=== PATIENT | female | born 1980 | race African-American/Black ===

== ENCOUNTER 2016-09-04 08:56 | Emergency (ER) | payer OTHER ==
[2016-09-04] MEDS ORDERED: ACETAMINOPHEN WITH CODEINE #3 TABLET PO ONE (11:08)
--- NOTE | 2016-09-04 11:32 | ER Document Report ---
ED General - General Chief Complaint: Cold Symptoms Stated Complaint: CHEST PAIN Mode of Arrival: Ambulatory Information source: Patient Notes: 36 yr old female presents with 3 day duration of facial pain, pressure and nasal discharge with a productive yellow cough. denies any fevers admits to nausea TRAVEL OUTSIDE OF THE [place] IN LAST 30 DAYS: No - HPI Onset: Last week Onset/Duration: Persistent Quality of pain: Achy, Pressure Severity: Mild Pain Level: 1 Associated symptoms: Productive cough, Sinus pain/drainage Exacerbated by: Denies Relieved by: Denies Similar symptoms previously: Yes Recently seen / treated by doctor: Yes - Related Data Allergies/Adverse Reactions: No Known Allergies Allergy (Verified 09/04/16 09:16) Past Medical History - General Information source: Patient Last Menstrual Period: currently - Social History Smoking Status: Unknown if Ever Smoked Cigarette use (# per day): No Chew tobacco use (# tins/day): Yes Smoking Education Provided: No Frequency of alcohol use: None Drug Abuse: None Family History: Reviewed & Not Pertinent, DM, Hypertension, Malignancy Patient has suicidal ideation: No Patient has homicidal ideation: No - Past Medical History Cardiac Medical History: Reports: Hx Hypertension - Not on-any medications Neurological Medical History: Reports: Hx Migraine Renal/ Medical History: Reports: Hx Ovarian Cysts GI Medical History: Reports: Hx Colonoscopy Musculoskeltal Medical History: Reports Hx Musculoskeletal Deformity, Reports Hx Musculoskeletal Trauma Psychiatric Medical History: Reports: Hx Anxiety, Hx Depression - anxiety Past Surgical History: Reports: Hx Gynecologic Surgery - laparoscopy sent cells to lab, Hx Tubal Ligation - Immunizations Immunizations up to date: Yes Hx Diphtheria, Pertussis, Tetanus Vaccination: No Review of Systems - Review of Systems Notes: REVIEW OF SYSTEMS: CONSTITUTIONAL : Denies fever, chills, or sweats. Denies recent illness. EENT: Admits nasal discharge CARDIOVASCULAR: Denies chest pain. Denies palpitations or racing or irregular heart beat. Denies ankle edema. RESPIRATORY: Admits to productive cough GASTROINTESTINAL: Denies abdominal pain or distention. Denies nausea, vomiting , or diarrhea. Denies blood in vomitus, stools, or per rectum. Denies black, tarry stools. Denies constipation. GENITOURINARY: Denies difficulty urinating, painful urination, burning, frequency, blood in urine, or discharge. FEMALE GENITOURINARY: Denies vaginal bleeding, heavy or abnormal periods, irregular periods. Denies vaginal discharge or odor. MUSCULOSKELETAL: Denies back or neck pain or stiffness. Denies joint pain or swelling. SKIN: Denies rash, lesions or sores. HEMATOLOGIC : Denies easy bruising or bleeding. LYMPHATIC: Denies swollen, enlarged glands. NEUROLOGICAL: Denies confusion or altered mental status. Denies passing out or loss of consciousness. Denies dizziness or lightheadedness. Denies headache. Denies weakness or paralysis or loss of use of either side. Denies problems with gait or speech. Denies sensory loss, numbness, or tingling. Denies seizures. PSYCHIATRIC: Denies anxiety or stress. Denies depression, suicidal ideation, or homicidal ideation. ALL OTHER SYSTEMS REVIEWED AND NEGATIVE. Dictation was performed using [employer] voice recognition software PHYSICAL EXAMINATION: GENERAL: Well-appearing, well-nourished and in no acute distress. HEAD: Atraumatic, normocephalic. Tender on palpation EYES: Pupils equal round and reactive to light, extraocular movements intact, conjunctiva are normal. ENT: Nares patent, oropharynx clear without exudates. Moist mucous membranes. NECK: Normal range of motion, supple without lymphadenopathy LUNGS: Breath sounds clear to auscultation bilaterally and equal. No wheezes rales or rhonchi. HEART: Regular rate and rhythm without murmurs ABDOMEN: Soft, nontender, nondistended abdomen. No guarding, no rebound. No masses appreciated. Female : deferred Musculoskeletal: Normal range of motion, no pitting or edema. No cyanosis. NEUROLOGICAL: Cranial nerves grossly intact. Normal speech, normal gait. Normal sensory, motor exams PSYCH: Normal mood, normal affect. SKIN: Warm, Dry, normal turgor, no rashes or lesions noted. Physical Exam - Vital signs Vitals: Temp Pulse Resp BP Pulse Ox 98.0 F 75 16 144/93 H 98 09/04/16 09:18 09/04/16 09:18 09/04/16 09:18 09/04/16 09:18 09/04/16 09:18 Course - Re-evaluation Re-evalutation: 09/04/16 11:32 Patient appears to have sinusitis, she requests pain control 09/04/16 11:59 chest xray is normal Otherwise patient stable for discharge After performing a Medical Screening Examination, I estimate there is LOW risk for ACUTE CORONARY SYNDROME, RESPIRATORY FAILURE, SEPSIS OR MENINGITIS, thus I consider the discharge disposition reasonable. The patient and I have discussed the diagnosis and risks, and we agree with discharging home with close follow- up. We also discussed returning to the Emergency Department immediately if new or worsening symptoms occur. We have discussed the symptoms which are most concerning (e.g., changing or worsening pain, trouble swallowing or breathing, neck stiffness, fever) that necessitate immediate return. - Vital Signs Vital signs: Temp Pulse Resp BP Pulse Ox 98.0 F 75 16 144/93 H 98 09/04/16 09:18 09/04/16 09:18 09/04/16 09:18 09/04/16 09:18 09/04/16 09:18 - Diagnostic Test Radiology reviewed: Image reviewed, Reports reviewed Discharge - Discharge Clinical Impression: Sinusitis Qualifiers: Sinusitis location: frontal Chronicity: acute Recurrence: non-recurrent Qualified Code(s): J01.10 - Acute frontal sinusitis, unspecified Headache Qualifiers: Headache type: unspecified Headache chronicity pattern: unspecified pattern Intractability: not intractable Qualified Code(s): R51 - Headache Pneumonia Qualifiers: Pneumonia type: due to unspecified organism Laterality: unspecified laterality Lung location: unspecified part of lung Qualified Code(s): J18.9 - Pneumonia, unspecified organism Condition: Stable Disposition: HOME, SELF-CARE Instructions: Sinusitis ([facility]) Additional Instructions: Follow up with your physician tomorrow for further care or return to the ED IMMEDIATELY if symptoms worsen or new concerns occur Prescriptions: Acetaminophen with Codeine [Tylenol #3 Tablet] 1 each PO Q4HP PRN #14 tablet PRN Reason: Azithromycin 250 mg PO ASDIR PRN #6 tablet PRN Reason:
[2016-09-04 12:30] VITALS: BP 145/96
== END 2016-09-04 12:30 | disposition home or self-care (01) ==
LOC: ER 08:56
DX: J18.9 Pneumonia, unspecified organism (principal); J01.10 Acute frontal sinusitis, unspecified; R51 Headache; J34.89 Other specified disorders of nose and nasal sinuses; R05 Cough; R11.0 Nausea; I10 Essential (primary) hypertension; Z72.0 Tobacco use
CPT/HCPCS: 71020; 99283

== ENCOUNTER 2016-10-18 11:13 | Emergency (ER) | payer OTHER ==
--- NOTE | 2016-10-18 11:56 | ER Document Report ---
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 denies pyuria, hematuria, urgency. admits to oral intercourse, and vaginal intercourse with her I have greeted and performed a rapid initial assessment of this patient. A comprehensive ED assessment and evaluation of the patient, analysis of test results and completion of the medical decision making process will be conducted by additional ED providers. TRAVEL OUTSIDE OF THE [place] IN LAST 30 DAYS: No - Related Data Allergies/Adverse Reactions: No Known Allergies Allergy (Verified 10/18/16 11:53) Past Medical History - Past Medical History Cardiac Medical History: Reports: Hx Hypertension - Not on-any medications Neurological Medical History: Reports: Hx Migraine Renal/ Medical History: Reports: Hx Ovarian Cysts GI Medical History: Reports: Hx Colonoscopy Musculoskeltal Medical History: Reports Hx Musculoskeletal Deformity, Reports Hx Musculoskeletal Trauma Psychiatric Medical History: Reports: Hx Anxiety, Hx Depression - anxiety Past Surgical History: Reports: Hx Gynecologic Surgery - laparoscopy sent cells to lab, Hx Tubal Ligation - Immunizations Immunizations up to date: Yes Hx Diphtheria, Pertussis, Tetanus Vaccination: No Physical Exam - Vital signs Vitals: Temp Pulse Resp BP Pulse Ox 98.0 F 95 16 138/89 H 100 10/18/16 11:41 10/18/16 11:41 10/18/16 11:41 10/18/16 11:41 10/18/16 11:41 Course - Vital Signs Vital signs: Temp Pulse Resp BP Pulse Ox 98.0 F 95 16 138/89 H 100 10/18/16 11:41 10/18/16 11:41 10/18/16 11:41 10/18/16 11:41 10/18/16 11:41
[2016-10-18] MEDS ORDERED: ONDANSETRON 4 MG TAB.RAPDIS PO ONE (11:57)
[2016-10-18 12:20] LABS: APPEARANCE,URINE CLEAR; BILIRUBIN,URINE NEGATIVE (NEGATIVE); GLUCOSE, URINE NEGATIVE (NEGATIVE); KETONES,URINE NEGATIVE (NEGATIVE); LEUKOCYTE ESTERASE,URINE NEGATIVE (NEGATIVE); NITRITE,URINE NEGATIVE (NEGATIVE); PROTEIN,URINE NEGATIVE (NEGATIVE); URINE SPECIFIC GRAVITY 1.004; UROBILINOGEN,URINE NEGATIVE mg/dL (<2.0)
[2016-10-18 13:48] LABS: CHLAM PCR NOT DETECTED (NOT DETECT)
[2016-10-18] MEDS ORDERED: OXYCODONE-ACETAMINOPHEN 5-325 MG TABLET PO ONE (16:45)
[2016-10-18] MEDS ORDERED: CEFTRIAXONE INJ 250 MG VIAL IM ONE (18:19)
--- NOTE | 2016-10-18 18:42 | ER Document Report ---
ED GI/ - General Chief Complaint: Abdominal Pain Stated Complaint: POSSIBLE STD Mode of Arrival: Ambulatory Information source: Patient Notes: 36-year-old female presents to the emergency department complaining of genital/ vaginal burning discomfort, and pelvic cramping type pain. Reports is in monogamous relationship with her however states he recently returned from deployment and has had similar symptoms. Patient is requesting STI screening. Denies fever, vaginal bleeding or discharge. TRAVEL OUTSIDE OF THE [place] IN LAST 30 DAYS: No - HPI Onset: Yesterday Timing/Duration: Persistent Quality of pain: Burning Severity at maximum: Mild Severity in ED: Mild Pain Level: 2 Vaginal bleeding (Compared to normal period): None Similar symptoms previously: No Recently seen / treated by doctor: No - Related Data Allergies/Adverse Reactions: No Known Allergies Allergy (Verified 10/18/16 11:53) Past Medical History - General Information source: Patient - Social History Smoking Status: Former Smoker Chew tobacco use (# tins/day): No Frequency of alcohol use: None Drug Abuse: None Lives with: Family Family History: Reviewed & Not Pertinent, DM, Hypertension, Malignancy Patient has suicidal ideation: No Patient has homicidal ideation: No - Past Medical History Cardiac Medical History: Reports: Hx Hypertension - Not on-any medications Neurological Medical History: Reports: Hx Migraine Renal/ Medical History: Reports: Hx Ovarian Cysts. Denies: Hx Peritoneal Dialysis GI Medical History: Reports: Hx Colonoscopy Musculoskeltal Medical History: Reports Hx Musculoskeletal Deformity, Reports Hx Musculoskeletal Trauma Psychiatric Medical History: Reports: Hx Anxiety, Hx Depression - anxiety Past Surgical History: Reports: Hx Gynecologic Surgery - laparoscopy sent cells to lab, Hx Tubal Ligation - Immunizations Immunizations up to date: Yes Hx Diphtheria, Pertussis, Tetanus Vaccination: Yes Review of Systems - Review of Systems Constitutional: No symptoms reported EENT: No symptoms reported Cardiovascular: No symptoms reported Respiratory: No symptoms reported Gastrointestinal: No symptoms reported Genitourinary: No symptoms reported. denies: Dysuria, Hematuria Female Genitourinary: See HPI Musculoskeletal: No symptoms reported Skin: No symptoms reported Hematologic/Lymphatic: No symptoms reported Neurological/Psychological: No symptoms reported -: Yes All other systems reviewed and negative Physical Exam - Vital signs Vitals: Temp Pulse Resp BP Pulse Ox 98.0 F 95 16 138/89 H 100 10/18/16 11:41 10/18/16 11:41 02/16/17 11:41 10/18/16 11:41 10/18/16 11:41 Interpretation: Normal - General General appearance: Appears well, Alert In distress: None - HEENT Head: Normocephalic, Atraumatic Eyes: Normal Pupils: PERRL - Respiratory Respiratory status: No respiratory distress Chest status: Nontender Breath sounds: Normal Chest palpation: Normal - Cardiovascular Rhythm: Regular Heart sounds: Normal auscultation Murmur: No Pulses: Normal: Radial Normal capillary refill: Yes - Abdominal Inspection: Normal Distension: No distension Bowel sounds: Normal Tenderness: Nontender. No: Tender, McBurney's point, Diaz's sign, Guarding, Rebound, Other Organomegaly: No organomegaly - Genitourinary External exam: Normal. No: Lesions, Vesicles Speculum exam: Cervix closed, Vaginal discharge - Moderate amount whitish thin discharge Vaginal bleeding: None Bimanuel exam: Normal. No: Cervical motion tender, Adnexal tenderness Notes: Pelvic exam chaperoned by Eileen WILL - Back Back: Normal, Nontender. No: Tender, Deformity/step-off, CVA tenderness, Vertebra tenderness, Scars, Scoliosis, Wounds, Other - Extremities General upper extremity: Normal inspection, Nontender, Normal color, Normal ROM , Normal temperature General lower extremity: Normal inspection, Nontender, Normal color, Normal ROM , Normal temperature, Normal weight bearing. No: Jose's sign - Neurological Neuro grossly intact: Yes Cognition: Normal Orientation: AAOx4 Sudhir Coma Scale Eye Opening: Spontaneous [place] Coma Scale Verbal: Oriented [place] Coma Scale Motor: Obeys Commands Sudhir Coma Scale Total: 15 Speech: Normal Motor strength normal: LUE, RUE, LLE, RLE Sensory: Normal - Psychological Associated symptoms: Normal affect, Normal mood - Skin Skin Temperature: Warm Skin Moisture: Dry Skin Color: Normal Course - Re-evaluation Re-evalutation: 10/18/16 18:45 Patient hemodynamically stable, in no distress, afebrile, nontoxic. Positive trichomonas on wet mount. HCG negative. Negative chandelier signs or other suggestion of significant or emergent intrapelvic etiology at this time. Will treat for Trichomonas and mild PID including possible exposure to Chlamydia and/ or gonorrhea as well due to reported history and symptoms. Patient presentation and findings discussed with ED physician Dr. Pizano who concurs with evaluation and treatment plan and recommends no indication for pelvic ultrasound this time. Patient appears stable for discharge and agrees with home care, follow-up with PCP, and ED return precautions. - Vital Signs Vital signs: Temp Pulse Resp BP Pulse Ox 98.6 F 78 22 H 123/81 100 10/18/16 18:47 10/18/16 18:47 10/18/16 18:47 10/18/16 18:47 10/18/16 18:47 - Laboratory Laboratory results interpreted by me: 10/18/16 12:00 Urine Blood SMALL H Discharge - Discharge Clinical Impression: Trichomoniasis, Acute infection of female upper reproductive tract Condition: Stable Disposition: HOME, SELF-CARE Additional Instructions: PELVIC INFLAMMATORY DISEASE: You have been diagnosed as having pelvic inflammatory disease (PID). This is an infection of the fallopian tubes and surrounding areas of the pelvis. Symptoms are usually pelvic pain and discharge. The infection can do permanent damage to the tubes and ovaries. It should be taken very seriously. Treatment is antibiotics, which may be given by vein or by injection if the infection seems serious. It's important that you receive all recommended medication. Condoms help prevent spread of this infection to others. Because this infection is spread sexually, it's important that your sexual partner be checked before resuming sexual relations. If a culture shows gonorrhea or chlamydia organisms, the law requires that this be reported to the health department. Call the doctor or return at once if you develop increasing fever, rash, severe pelvic pain, vaginal bleeding (other than your period), or problems with your bladder or bowels. Trichomonas Infection Trichomoniasis is infection of the vagina or male genital tract with Trichomonas vaginalis. It can be asymptomatic or cause urethritis, vaginitis, or occasionally cystitis, epididymitis, or prostatitis. Diagnosis is by microscopic examination of vaginal or prostatic secretions or by urethral culture. Patients and sex partners are treated with metronidazole. T. vaginalis is a flagellated, sexually transmitted protozoan that more often infects women (about 20% of women of reproductive age) than men. Infection may be asymptomatic in either sex, but asymptomatic is the rule for men. In men, protozoa may persist for long periods in the tract without causing symptoms; thus, protozoa may be transmitted unwittingly to sex partners. Trichomoniasis may account for up to 5% of nongonococcal, nonchlamydial urethritis in men in some areas. Co-infection with gonorrhea and other sexually transmitted diseases (STDs) is common. In women, symptoms range from none to copious, yellow-green, frothy vaginal discharge with soreness of the vulva and perineum, dyspareunia, and dysuria. Asymptomatic infection may become symptomatic at any time as the vulva and perineum become inflamed and edema develops in the labia. The vaginal rea and surface of the cervix may have punctate, red "strawberry" spots. Urethritis and possibly cystitis may also occur. Men are usually asymptomatic; however, sometimes urethritis results in a discharge that may be transient, frothy, or purulent or that causes dysuria and frequency, usually early in the morning. Often, urethritis is mild and causes only minimal urethral irritation and occasional moisture at the urethral meatus , under the foreskin, or both. Epididymitis and prostatitis are rare complications. Trichomoniasis is suspected in women with vaginitis, in men with urethritis , and in their sex partners. Suspicion is high if symptoms persist after patients have been evaluated and treated for other infections such as gonorrhea and chlamydial, mycoplasmal, and ureaplasmal infections. In women, diagnosis is based on clinical criteria and in-office testing. The saline wet mount is examined microscopically as soon as possible to detect trichomonads.In men, microscopy of urine is insensitive, although occasionally organisms are visible in a first-voided morning specimen or a centrifuged specimen. Cultures of urine and urethral swabs are more sensitive. As with diagnosis of any STD, patients with trichomoniasis should be tested to exclude other common STDs such as gonorrhea and chlamydial infection. Metronidazole or tinidazole 2 g po in a single dose cures up to 95% of women if sex partners are treated simultaneously. Effectiveness of single-dose regimens in men is not as clear, so treatment is typically with metronidazole or tinidazole 500 mg bid for 5 to 7 days. Sex partners should be screened and treated for trichomoniasis and other STDs. If poor adherence to follow-up is likely, treatment can be initiated in sex partners of patients with documented trichomoniasis without confirming the diagnosis in the partner. ANTIBIOTIC THERAPY: You have been given an antibiotic prescription. It's important that you take all the medication, unless instructed otherwise by your physician. Failure to complete the entire course can result in relapse of your condition. Common side effects of antibiotics include nausea, intestinal cramping, or diarrhea. Women may develop vaginal yeast infections, and babies can get yeast (thrush) in the mouth following the use of antibiotics. Contact your physician if you develop significant side effects from this medication. Allergy to this antibiotic can result in hives, wheezing, faintness, or itching. If symptoms of allergy occur, stop the medication and call the doctor. Rocephin You have been given an injection of an antibiotic called Rocephin ( ceftriaxone). Sometimes the injection must be combined with antibiotic pills. For some infections, such as an uncomplicated ear infection, Rocephin provides all the antibiotic that's needed. The antibiotic will be in your body for about two days. For serious infections, we usually repeat doses of Rocephin daily. Side effects are very unusual following a shot. Women may develop vaginal yeast infections, and babies can get yeast (thrush) in the mouth following the use of antibiotics. Contact your physician if you have symptoms with this medication. Allergy to this antibiotic can result in hives, wheezing, faintness, or itching. If symptoms of allergy occur, call the doctor at once. DOXYCYCLINE: Doxycycline (Vibramycin, Doryx) is an antibiotic of the tetracycline family. This type of drug is useful for infections of the respiratory tract and genital tract, and is sometimes used for intestinal infections. Unlike most tetracyclines, doxycycline can be taken with food. It is longer acting, and (usually) less prone to side effects than regular tetracycline. Tetracycline antibiotics can stain immature teeth and SHOULD NOT BE TAKEN BY CHILDREN, NURSING MOTHERS, OR WOMEN. Tetracyclines can make you more prone to sunburn. Abdominal cramping, nausea, and diarrhea are occasional side effects. Women may experience vaginal yeast infections. Call the doctor at once if you develop hives, itching, shortness of breath , or lightheadedness. METRONIDAZOLE: Metronidazole (Flagyl) has been prescribed. This medication is used to kill a type of bacteria called anaerobes, and protozoan parasites such as trichomonas and Giardia. Flagyl often causes a metallic taste in the mouth and mild nausea. Do not use alcohol in any form with Flagyl (including alcohol in medication elixirs). Flagyl interacts with alcohol to cause flushing, palpitations, headache, stomach cramps, and vomiting. Do not use Flagyl if you are taking Antabuse (disulfiram). Call the doctor at once if you develop rash, shortness of breath, itching, or lightheadedness. ORAL NARCOTIC MEDICATION: You have been given a prescription for pain control. This medication is a narcotic. It's best taken with food, as nausea can result if taken on an empty stomach. Don't operate machinery or drive within six hours of taking this medication. Do not combine this medicine with alcohol, or with any medication which can cause sedation (such as cold tablets or sleeping pills) unless you get permission from the physician. Narcotics tend to cause constipation. If possible, drink plenty of fluids and eat a diet high in fiber and fruits. Please be aware that prescription narcotics also have the potential for abuse. People become addicted to these medications because of the general sense of wellbeing that they induce. This feeling along with a significant reduction in tension, anxiety, and aggression provides a stimulating seductive quality to these drugs. Once your pain is under control, we encourage you to discard your unused narcotics. FOLLOW-UP CARE: Abstain from sexual intercourse until course of antibiotics is completed. Follow-up with your primary care provider next week. Return to the Emergency Department for any worsening symptoms or concerns. Prescriptions: Doxycycline Hyclate 100 mg PO BID #28 capsule Hydrocodone/Acetaminophen [[place] 5-325 mg Tablet] 1 tab PO Q6H PRN #10 tablet PRN Reason: Metronidazole 500 mg PO BID 14 Days Forms: Elevated Blood Pressure
[2016-10-18 18:50] VITALS: BP 123/81
== END 2016-10-18 18:55 | disposition home or self-care (01) ==
LOC: ER 11:13
DX: N73.9 Female pelvic inflammatory disease, unspecified (principal); A59.9 Trichomoniasis, unspecified; I10 Essential (primary) hypertension; R10.2 Pelvic and perineal pain; Z87.891 Personal history of nicotine dependence
CPT/HCPCS: 99283; 96372; 87070; 87205; 87210; 81025; 81001; 87491; 87591; J0696

== ENCOUNTER 2017-02-01 07:52 | Emergency (ER) | payer OTHER ==
--- NOTE | 2017-02-01 08:29 | ER Document Report ---
ED General - General Chief Complaint: Low Back Pain Stated Complaint: BACK AND STOMACH PAINS Time Seen by Provider: 02/01/17 08:28 Mode of Arrival: Ambulatory Information source: Patient Notes: Patient presents to the emergency department with complaints of right-sided flank pain urinary frequency stomach cramps and sinus pressure for the past 3 weeks. Patient reports chills and feels like she has a fever. Also reports that she would like to be evaluated for an STD. She reports one partner no protection. She reports last time she had pain like this she had chlamydia. She denies vaginal discharge. She denies vaginal bleeding. Patient also reports that she vomited one time today and had diarrhea last night. Reports she tried multiple [id number] medications to help resolve her sinus pain without success. Those medications included Sudafed and ibuprofen. TRAVEL OUTSIDE OF THE [place] IN LAST 30 DAYS: No - HPI Onset: Other - 3 weeks Onset/Duration: Sudden Quality of pain: Achy Severity: Severe Pain Level: 5 Associated symptoms: Diarrhea, Vomiting, Sinus pain/drainage Exacerbated by: Denies Relieved by: Denies Similar symptoms previously: No Recently seen / treated by doctor: No - Related Data Allergies/Adverse Reactions: No Known Allergies Allergy (Verified 02/01/17 07:55) Home Medications: Current Home Medications Clonazepam [Clonazepam] 1 mg PO BID PRN 02/01/17 [History] Past Medical History - General Information source: Patient Last Menstrual Period: 01/02/17 - Social History Smoking Status: Unknown if Ever Smoked Chew tobacco use (# tins/day): Yes - dip Frequency of alcohol use: None Drug Abuse: None Occupation: [employer] Family History: Reviewed & Not Pertinent, DM, Hypertension, Malignancy Patient has suicidal ideation: No Patient has homicidal ideation: No - Past Medical History Cardiac Medical History: Reports: Hx Hypertension - Not on-any medications Neurological Medical History: Reports: Hx Migraine Renal/ Medical History: Reports: Hx Ovarian Cysts. Denies: Hx Peritoneal Dialysis GI Medical History: Reports: Hx Colonoscopy Musculoskeltal Medical History: Reports Hx Musculoskeletal Deformity, Reports Hx Musculoskeletal Trauma Psychiatric Medical History: Reports: Hx Anxiety, Hx Depression - anxiety Past Surgical History: Reports: Hx Gynecologic Surgery - laparoscopy sent cells to lab, Hx Tubal Ligation - Immunizations Immunizations up to date: Yes Hx Diphtheria, Pertussis, Tetanus Vaccination: Yes Review of Systems - Review of Systems Notes: Review HPI for review of systems., All other systems negative Physical Exam - Vital signs Vitals: Temp Pulse Resp BP Pulse Ox 98.8 F 82 14 126/77 H 98 02/01/17 07:55 02/01/17 07:55 02/01/17 07:55 02/01/17 07:55 02/01/17 07:55 - Notes Notes: PHYSICAL EXAMINATION: GENERAL: Well-appearing no toxic looking HEAD: Atraumatic, normocephalic. EYES: Pupils equal round and reactive to light, extraocular movements intact, sclera anicteric, conjunctiva are normal. ENT: nares patent, oropharynx clear without exudates. Moist mucous membranes. NECK: Normal range of motion, supple without lymphadenopathy LUNGS: CTAB and equal. No wheezes rales or rhonchi. HEART: Regular rate and rhythm without murmurs ABDOMEN: Soft, no tenderness. No guarding, no rebound BACK: Right flank pain EXTREMITIES: Normal range of motion, no pitting edema. No cyanosis. NEUROLOGICAL: Cranial nerves grossly intact. Normal sensory/motor exams. PSYCH: Normal mood, normal affect. SKIN: Warm, Dry, normal turgor, no rashes or lesions noted - Genitourinary External exam: Normal Speculum exam: Normal Vaginal bleeding: None Bimanuel exam: Adnexal tenderness Course - Re-evaluation Re-evalutation: 02/01/17 09:46 Patient was instructed on UA wet mount. She requests to be treated for gonorrhea and chlamydia here. She was instructed on Rocephin and Zithromax and patient will be contacted via phone for any positive cultures. Cell phone # [phone]. Home phone [phone]. She was instructed on her sinus infection. She was also instructed to take capl-amo-bktwzda nasal decongestant. She verbalized understanding to all instructions. 02/01/17 11:40 Chlamydia gonorrhea negative, patient will not be contacted. She was instructed that no news is good news and she will not be called if results were negative. - Vital Signs Vital signs: Temp Pulse Resp BP Pulse Ox 98.2 F 71 18 137/82 H 99 02/01/17 10:13 02/01/17 10:13 02/01/17 10:13 02/01/17 10:13 02/01/17 10:13 Procedures - Pelvic Exam Pelvic exam Cultures obtained: Yes Wet prep obtained: Yes Herpes culture obtained: No POC sent to lab: No Foreign body removed: No Bimanual exam performed: Yes Witnessed by: crystal Discharge - Discharge Clinical Impression: Elevated blood pressure reading, Flank pain, Acute frontal sinusitis, Bacterial vaginosis Low back pain Qualifiers: Chronicity: acute Back pain laterality: right Sciatica presence: without sciatica Qualified Code(s): M54.5 - Low back pain Condition: Stable Disposition: HOME, SELF-CARE Instructions: Augmentin ([facility]), Flank Pain ([facility]), Use of Mvfx-Vuz-Rwahvis Ibuprofen ([facility]), Ice Packs ([facility]), Low Back Pain ([facility]), Metronidazole ([facility]), Sinusitis ([facility]), Vaginosis, Bacterial ([facility]), Gonorrhea ([facility]), Chlamydia ([facility]), Azithromycin ([facility]), Rocephin ([facility]), [facility] [place], Oral Narcotic Medication ([facility]) Additional Instructions: *You have been evaluated for back pain, urinary frequency, bacterial vaginosis, cystitis *Take all Medications as prescribed *Take over the counter nasal congestion medication also *Follow up with your clinical support nurse or the health department for recheck within one week *You will be contacted for any positive STD cultures. You have been treated prophylactically per your request for gonorrhea and chlamydia *Follow up with a primary care provider within 1 week for recheck *Return to ED for worsening condition, changes, needs Prescriptions: Amoxicillin/Potassium Clav [Augmentin 875-125 Tablet] 1 each PO BID #20 tablet Hydrocodone/Acetaminophen [[place] 5-325 Tablet] 1 each PO QID #15 tablet Metronidazole [Flagyl 500 mg Tablet] 500 mg PO BID #14 tablet Forms: Elevated Blood Pressure, Return to Work Referrals: OPAL BRASWELL MD [Primary Care Provider] - Follow up in 1 week
[2017-02-01 08:31] LABS: APPEARANCE,URINE CLEAR; BILIRUBIN,URINE NEGATIVE (NEGATIVE); GLUCOSE, URINE NEGATIVE (NEGATIVE); KETONES,URINE NEGATIVE (NEGATIVE); LEUKOCYTE ESTERASE,URINE NEGATIVE (NEGATIVE); NITRITE,URINE NEGATIVE (NEGATIVE); PROTEIN,URINE NEGATIVE (NEGATIVE); URINE SPECIFIC GRAVITY 1.012; UROBILINOGEN,URINE NEGATIVE mg/dL (<2.0)
[2017-02-01] MEDS ORDERED: HYDROCODONE/ACETAMINOPHEN 5-325 MG TABLET PO ONE (08:58)
[2017-02-01] MEDS ORDERED: PHENAZOPYRIDINE HCL 200 MG TABLET PO ONE (08:58)
[2017-02-01] MEDS ORDERED: AZITHROMYCIN 1 GM SUSP PACKET PO ONE (09:44)
[2017-02-01] MEDS ORDERED: LIDOCAINE 1% INJ-PF (10 MG/ML) 30 ML SDV INJ ONE (09:44)
[2017-02-01] MEDS ORDERED: CEFTRIAXONE INJ 250 MG VIAL IM ONE (09:44)
[2017-02-01 10:17] VITALS: BP 137/82
[2017-02-01 10:37] LABS: CHLAM PCR NOT DETECTED (NOT DETECT)
== END 2017-02-01 10:16 | disposition home or self-care (01) ==
LOC: ER 07:52
DX: J01.10 Acute frontal sinusitis, unspecified (principal); N76.0 Acute vaginitis; R03.0 Elevated blood-pressure reading, without diagnosis of hypertension; M54.5 Low back pain; M54.9 Dorsalgia, unspecified; R10.9 Unspecified abdominal pain; R35.0 Frequency of micturition; R11.10 Vomiting, unspecified; R19.7 Diarrhea, unspecified
CPT/HCPCS: 99283; 96372; 87210; 81025; 81001; 87491; 87591; J3490 ×2; Q0144; J0696

== ENCOUNTER 2017-02-03 21:30 | Emergency (ER) | payer OTHER | END 2017-02-03 22:30 | disposition left against medical advice (07) | LOC: ER 21:30 | DX: Z53.21 Procedure and treatment not carried out due to patient leaving prior to being seen by health care provider (principal) ==

== ENCOUNTER 2017-03-06 07:38 | Emergency (ER) | payer OTHER ==
--- NOTE | 2017-03-06 08:05 | ER Document Report ---
ED General - General Chief Complaint: Allergic Reaction Stated Complaint: POSSIBLE ALLERGIC REACTION Time Seen by Provider: 03/06/17 08:01 TRAVEL OUTSIDE OF THE [place] IN LAST 30 DAYS: No - HPI Patient complains to provider of: Allergic reaction Notes: Patient coming in for evaluation of allergic reaction. 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 Patient states she has had allergy testing in the past only positive for double bleed. Patient has not followed up with her primary care physician for this evaluation. Patient denies fever chills nausea vomiting difficulty breathing shortness of breath swelling. - Related Data Allergies/Adverse Reactions: No Known Allergies Allergy (Verified 03/06/17 07:40) Past Medical History - Social History Smoking Status: Unknown if Ever Smoked Family History: Reviewed & Not Pertinent, DM, Hypertension, Malignancy Patient has suicidal ideation: No Patient has homicidal ideation: No - Past Medical History Cardiac Medical History: Reports: Hx Hypertension - Not on-any medications Neurological Medical History: Reports: Hx Migraine Renal/ Medical History: Reports: Hx Ovarian Cysts. Denies: Hx Peritoneal Dialysis GI Medical History: Reports: Hx Colonoscopy Musculoskeltal Medical History: Reports Hx Musculoskeletal Deformity, Reports Hx Musculoskeletal Trauma Psychiatric Medical History: Reports: Hx Anxiety, Hx Depression - anxiety Past Surgical History: Reports: Hx Gynecologic Surgery - laparoscopy sent cells to lab, Hx Tubal Ligation - Immunizations Immunizations up to date: Yes Hx Diphtheria, Pertussis, Tetanus Vaccination: Yes Review of Systems - Review of Systems Constitutional: No symptoms reported EENT: No symptoms reported Cardiovascular: No symptoms reported Respiratory: No symptoms reported Gastrointestinal: No symptoms reported Genitourinary: No symptoms reported Female Genitourinary: No symptoms reported Musculoskeletal: No symptoms reported Skin: Rash Hematologic/Lymphatic: No symptoms reported Neurological/Psychological: No symptoms reported -: Yes All other systems reviewed and negative Physical Exam - Vital signs Vitals: Temp Pulse Resp BP Pulse Ox 98.9 F 101 H 17 132/88 H 100 03/06/17 07:40 03/06/17 07:40 03/06/17 07:40 03/06/17 07:40 03/06/17 07:40 Interpretation: Normal - General General appearance: Appears well, Alert - HEENT Head: Normocephalic, Atraumatic Eyes: Normal Pupils: PERRL - Respiratory Respiratory status: No respiratory distress Chest status: Nontender Breath sounds: Normal Chest palpation: Normal - Cardiovascular Rhythm: Regular Heart sounds: Normal auscultation Murmur: No - Abdominal Inspection: Normal Distension: No distension Bowel sounds: Normal Tenderness: Nontender Organomegaly: No organomegaly - Back Back: Normal, Nontender - Extremities General upper extremity: Normal inspection, Nontender, Normal color, Normal ROM , Normal temperature General lower extremity: Normal inspection, Nontender, Normal color, Normal ROM , Normal temperature, Normal weight bearing. No: Jose's sign - Neurological Neuro grossly intact: Yes Cognition: Normal Orientation: AAOx4 [place] Coma Scale Eye Opening: Spontaneous Sudhir Coma Scale Verbal: Oriented [place] Coma Scale Motor: Obeys Commands Sudhir Coma Scale Total: 15 Speech: Normal Motor strength normal: LUE, RUE, LLE, RLE Sensory: Normal - Psychological Associated symptoms: Normal affect, Normal mood - Skin Skin Temperature: Warm Skin Moisture: Dry Skin Color: Other - Scattered areas on the upper extremities of fine lacy rash blanchable patient states his pleuritic consistent with contact dermatitis Course - Re-evaluation Re-evalutation: 03/06/17 15:14 Patient more likely with a contact dermatitis. Patient was educated about the use of hypoallergenic lotions to keep the Skin moist to aid in its relief will give prednisone educated patient about the use of Claritin hoqe-szf-[id number]. Patient was discharged home - Vital Signs Vital signs: Temp Pulse Resp BP Pulse Ox 98.9 F 86 16 127/72 H 100 03/06/17 08:47 03/06/17 08:47 03/06/17 08:47 03/06/17 08:47 03/06/17 08:47 Discharge - Discharge Clinical Impression: Contact dermatitis Qualifiers: Contact dermatitis type: unspecified Contact dermatitis trigger: unspecified trigger Qualified Code(s): L25.9 - Unspecified contact dermatitis, unspecified cause Condition: Good Disposition: HOME, SELF-CARE Instructions: Contact Dermatitis ([facility]) Additional Instructions: Take medication as prescribed. I highly recommend also trying the hypoallergenic lotions provided. Wear long sleeves to avoid skin contact with substances while you are working. I recommend follow-up with Dr. Braswell your primary care physician for further evaluation. Prescriptions: Cetirizine HCl 5 mg PO DAILY #30 ml Pramoxine HCl/Calamine [Aveeno Anti-Itch Lotion] 118 ml TP DAILY #1 lotion Prednisone [Deltasone 20 mg Tablet] 2 tab PO DAILY 5 Days Forms: Return to Work Referrals: OPAL BRASWELL MD [Primary Care Provider] - Follow up as needed
[2017-03-06] MEDS ORDERED: CETIRIZINE 5 MG TABLET PO ONE (08:31)
[2017-03-06 08:58] VITALS: BP 127/72
== END 2017-03-06 08:50 | disposition home or self-care (01) ==
LOC: ER 07:38
DX: L25.9 Unspecified contact dermatitis, unspecified cause (principal); I10 Essential (primary) hypertension; Z98.51 Tubal ligation status
CPT/HCPCS: 99283; J3490

== ENCOUNTER 2017-04-24 10:53 | Emergency (ER) | payer OTHER ==
[2017-04-24 11:08] VITALS: BP 118/71
--- NOTE | 2017-04-24 11:58 | ER Document Report ---
HPI - HPI Patient complains to provider of: sinus infection Pain Level: 5 Context: 36 yo female c/o sinus pain, pressure x 3 wks. + facial pain, + headache. + hx/ o recurrent sinus infections. no fever Associated Symptoms: None Exacerbated by: Denies Relieved by: Denies Similar symptoms previously: Yes Recently seen / treated by doctor: No - ROS Systems Reviewed and Negative: Yes All other systems reviewed and negative - REPRODUCTIVE LMP: 03/24/17 Reproductive: DENIES: : - DERM Skin Color: Normal Past Medical History - General Information source: Patient - Social History Smoking Status: Current Every Day Smoker Chew tobacco use (# tins/day): Yes - snuff Frequency of alcohol use: None Drug Abuse: None Lives with: Family Family History: Reviewed & Not Pertinent, DM, Hypertension, Malignancy Patient has suicidal ideation: No Patient has homicidal ideation: No - Past Medical History Cardiac Medical History: Reports: Hx Hypertension - Not on-any medications Neurological Medical History: Reports: Hx Migraine Renal/ Medical History: Reports: Hx Ovarian Cysts. Denies: Hx Peritoneal Dialysis GI Medical History: Reports: Hx Colonoscopy Musculoskeltal Medical History: Reports Hx Musculoskeletal Deformity, Reports Hx Musculoskeletal Trauma Psychiatric Medical History: Reports: Hx Anxiety, Hx Depression - anxiety Past Surgical History: Reports: Hx Gynecologic Surgery - laparoscopy sent cells to lab, Hx Tubal Ligation - Immunizations Immunizations up to date: Yes Hx Diphtheria, Pertussis, Tetanus Vaccination: Yes Vertical Provider Document - CONSTITUTIONAL Agree With Documented VS: Yes Exam Limitations: No Limitations General Appearance: WD/WN, Mild Distress - INFECTION CONTROL TRAVEL OUTSIDE OF THE [place] IN LAST 30 DAYS: No - HEENT HEENT: Atraumatic, PERRLA Notes: + tender over all sinuses. TMs dull bilat - NECK Neck: Normal Inspection, Supple - RESPIRATORY Respiratory: Breath Sounds Normal, No Respiratory Distress O2 Sat by Pulse Oximetry: 99 - CARDIOVASCULAR Cardiovascular: Regular Rate, Regular Rhythm - MUSCULOSKELETAL/EXTREMETIES Musculoskeletal/Extremeties: MAEW - NEURO Level of Consciousness: Awake, Alert, Appropriate - DERM Integumentary: Warm, Dry, No Rash Course - Vital Signs Vital signs: Temp Pulse Resp BP Pulse Ox 97.8 F 71 16 118/71 99 04/24/17 11:04 04/24/17 11:04 04/24/17 11:04 04/24/17 11:04 04/24/17 11:04 Discharge - Discharge Clinical Impression: Acute bacterial sinusitis Condition: Stable Disposition: HOME, SELF-CARE Instructions: Sinusitis ([facility]), Antibiotic Therapy ([facility]), Steroid Medication, Oral Narcotic Medication ([facility]) Additional Instructions: Take medications as prescribed recommend OTC Mucninex in addition to prescribed meds push fluids follow up with primary care if symptoms persist Prescriptions: Amox Tr/Potassium Clavulanate [Augmentin 875-125 Tablet] 1 tab PO BID 10 Days tablet Hydrocodone/Acetaminophen [[place] 5-325 mg Tablet] 1 tab PO Q4H PRN #8 tablet PRN Reason: Prednisone [Deltasone 10 mg Tablet] 20 mg PO BID #16 tablet Forms: Return to Work
== END 2017-04-24 12:05 | disposition home or self-care (01) ==
LOC: ER 10:53
DX: J01.90 Acute sinusitis, unspecified (principal); B96.89 Other specified bacterial agents as the cause of diseases classified elsewhere; F17.200 Nicotine dependence, unspecified, uncomplicated; I10 Essential (primary) hypertension
CPT/HCPCS: 99283

== ENCOUNTER 2017-06-26 13:29 | Emergency (ER) | payer OTHER ==
[2017-06-26 13:54] VITALS: BP 143/88
--- NOTE | 2017-06-26 14:14 | ER Document Report ---
ED Medical Screen (RME) - General Chief Complaint: Lower Abdominal Pain Stated Complaint: ABDOMINAL PAIN,SHORT OF BREATH Time Seen by Provider: 06/26/17 14:09 Notes: Patient complains of abdominal discomfort. As well as headache weakness and left arm feeling warm. She also states that she feels she may have had a miscarriage or maybe her Mirena is displaced. TRAVEL OUTSIDE OF THE [place] IN LAST 30 DAYS: No - Related Data Allergies/Adverse Reactions: metoclopramide [From Reglan] Adverse Reaction (Verified 06/26/17 14:05) Home Medications: Current Home Medications Citalopram Hydrobromide [Citalopram HBr] 20 mg PO DAILY 06/26/17 [History] Past Medical History - Past Medical History Cardiac Medical History: Reports: Hx Hypertension - Not on-any medications Neurological Medical History: Reports: Hx Migraine Renal/ Medical History: Reports: Hx Ovarian Cysts. Denies: Hx Peritoneal Dialysis GI Medical History: Reports: Hx Colonoscopy Musculoskeltal Medical History: Reports Hx Musculoskeletal Deformity, Reports Hx Musculoskeletal Trauma Psychiatric Medical History: Reports: Hx Anxiety, Hx Depression - anxiety Past Surgical History: Reports: Hx Gynecologic Surgery - laparoscopy sent cells to lab, Hx Tubal Ligation - Immunizations Immunizations up to date: Yes Hx Diphtheria, Pertussis, Tetanus Vaccination: Yes Physical Exam - Vital signs Vitals: Temp Pulse Resp BP Pulse Ox 98.6 F 66 13 143/88 H 99 06/26/17 13:50 06/26/17 13:50 06/26/17 13:50 06/26/17 13:50 06/26/17 13:50 Course - Vital Signs Vital signs: Temp Pulse Resp BP Pulse Ox 98.6 F 66 13 143/88 H 99 06/26/17 13:50 06/26/17 13:50 06/26/17 13:50 06/26/17 13:50 06/26/17 13:50
[2017-06-26 14:53] LABS: ABSOLUTE LYMPHOCYTES (AUTO) 1.4 10^3/uL (0.5-4.7); ABSOLUTE MONOCYTES (AUTO) 0.3 10^3/uL (0.1-1.4); ABSOLUTE NEUT (AUTO) 2.1 10^3/uL (1.7-8.2); BASOPHILS % (AUTO) 0.6 % (0-2); EOSINOPHILS % (AUTO) 1.2 % (0-6); HEMATOCRIT 41.1 % (36.0-47.0); HEMOGLOBIN 14.1 g/dL (12.0-15.5); HGB HCT DIFFERENCE 1.2; LYMPHOCYTES % (AUTO) 36.5 % (13-45); MEAN CORPUSCULAR HEMOGLOBIN 30.4 pg (27.0-33.4); MEAN CORPUSCULAR HGB CONC 34.3 g/dL (32.0-36.0); MEAN CORPUSCULAR VOLUME 89 fl (80-97); MONOCYTES % (AUTO) 7.9 % (3-13); RED BLOOD COUNT 4.63 10^6/uL (3.72-5.28); RED CELL DISTRIBUTION WIDTH 13.7 % (11.5-14.0); SEGMENTED NEUTROPHILS % (AUTO) 53.8 % (42-78); WHITE BLOOD COUNT 3.8 10^3/uL (4.0-10.5)
[2017-06-26 15:08] LABS: ALANINE AMINOTRANSFERASE 36 U/L (9-52); ALBUMIN 4.6 g/dL (3.5-5.0); ALKALINE PHOSPHATASE 55 U/L (38-126); ANION GAP 13 (5-19); APPEARANCE,URINE CLEAR; ASPARTATE AMINO TRANSFERASE 20 U/L (14-36); BILIRUBIN,DIRECT 0.4 mg/dL (0.0-0.4); BILIRUBIN,TOTAL 1.7 mg/dL (0.2-1.3); BILIRUBIN,URINE NEGATIVE (NEGATIVE); BLOOD UREA NITROGEN 10 mg/dL (7-20); CALCIUM 9.6 mg/dL (8.4-10.2); CARBON DIOXIDE 29 mmol/L (22-30); CHLORIDE 100 mmol/L (98-107); CREATININE RESULT 0.67 mg/dL (0.52-1.25); GLUCOSE 84 mg/dL (75-110); GLUCOSE, URINE NEGATIVE (NEGATIVE); KETONES,URINE NEGATIVE (NEGATIVE); LEUKOCYTE ESTERASE,URINE NEGATIVE (NEGATIVE); NITRITE,URINE NEGATIVE (NEGATIVE); POTASSIUM 4.2 mmol/L (3.6-5.0); PROTEIN,URINE NEGATIVE (NEGATIVE); SODIUM 141.7 mmol/L (137-145); TOTAL PROTEIN 7.6 g/dL (6.3-8.2); URINE SPECIFIC GRAVITY 1.011; UROBILINOGEN,URINE NEGATIVE mg/dL (<2.0)
--- NOTE | 2017-06-26 16:32 | ER Document Report ---
ED GI/ - General Chief Complaint: Lower Abdominal Pain Stated Complaint: ABDOMINAL PAIN,SHORT OF BREATH Time Seen by Provider: 06/26/17 14:09 Mode of Arrival: Ambulatory Information source: Patient Notes: Patient is a 36-year-old female who presents to the ER today for 1 month of sinus pressure, drainage, 2 weeks of fatigue and "just not feeling right." Patient also admits to lower abdominal pressure and a very heavy period that is not normal for her 1 month ago. Patient states "I just have not been right since." She denies any fevers or chills, abnormal vaginal discharge, low back pain, dysuria or hematuria. She does have a Mirena and is concerned that it may not be in the correct position. TRAVEL OUTSIDE OF THE [place] IN LAST 30 DAYS: No - Related Data Allergies/Adverse Reactions: metoclopramide [From YOOWALK] Adverse Reaction (Verified 06/26/17 14:05) Home Medications: Current Home Medications Citalopram Hydrobromide [Citalopram HBr] 20 mg PO DAILY 06/26/17 [History] Past Medical History - General Information source: Patient - Social History Smoking Status: Unknown if Ever Smoked Family History: Reviewed & Not Pertinent, DM, Hypertension, Malignancy Patient has suicidal ideation: No Patient has homicidal ideation: No - Past Medical History Cardiac Medical History: Reports: Hx Hypertension - Not on-any medications Neurological Medical History: Reports: Hx Migraine Renal/ Medical History: Reports: Hx Ovarian Cysts. Denies: Hx Peritoneal Dialysis GI Medical History: Reports: Hx Colonoscopy Musculoskeltal Medical History: Reports Hx Musculoskeletal Deformity, Reports Hx Musculoskeletal Trauma Psychiatric Medical History: Reports: Hx Anxiety, Hx Depression - anxiety Past Surgical History: Reports: Hx Gynecologic Surgery - laparoscopy sent cells to lab, Hx Tubal Ligation - Immunizations Immunizations up to date: Yes Hx Diphtheria, Pertussis, Tetanus Vaccination: Yes Review of Systems - Review of Systems Constitutional: No symptoms reported EENT: See HPI Cardiovascular: No symptoms reported Respiratory: See HPI Gastrointestinal: No symptoms reported Genitourinary: No symptoms reported Female Genitourinary: See HPI Musculoskeletal: No symptoms reported Skin: No symptoms reported Hematologic/Lymphatic: No symptoms reported Neurological/Psychological: No symptoms reported Physical Exam - Vital signs Vitals: Temp Pulse Resp BP Pulse Ox 98.6 F 66 13 143/88 H 99 06/26/17 13:50 10/25/17 13:50 06/26/17 13:50 06/26/17 13:50 06/26/17 13:50 - Notes Notes: PHYSICAL EXAMINATION: GENERAL: Well-appearing and in no acute distress. HEAD: Atraumatic, normocephalic. EYES: Pupils equal round and reactive to light, extraocular movements intact, sclera anicteric, conjunctiva are normal. ENT: ear canals without erythema or foreign body, TMs pearly bhagat with good bony landmarks, nares patent, oropharynx clear without exudates. Moist mucous membranes. Maxillary sinuses tender to palpation NECK: Normal range of motion, supple without lymphadenopathy LUNGS: CTAB and equal. No wheezes rales or rhonchi. HEART: Regular rate and rhythm without murmurs ABDOMEN: Soft, no tenderness. No guarding, no rebound BACK: no vertebral tenderness, normal ROM Pelvic: No discharge, no cervical motion tenderness, no adnexal tenderness GI/: no CVA tenderness EXTREMITIES: Normal range of motion, no pitting edema. No cyanosis. NEUROLOGICAL: Cranial nerves grossly intact. Normal sensory/motor exams. PSYCH: Normal mood, normal affect. SKIN: Warm, Dry, normal turgor, no rashes or lesions noted Course - Re-evaluation Re-evalutation: 06/26/17 17:47 Lab work unremarkable today. Pelvic ultrasound negative for any acute pathology , Mirena in place. Wet mount is negative for any infection, gonorrhea and chlamydia are pending but patient does not want to wait on those results. I will treat patient for a sinus infection but found no pelvic pathology today. Urinalysis negative. 06/26/17 18:59 - Vital Signs Vital signs: Temp Pulse Resp BP Pulse Ox 98.6 F 66 13 143/88 H 99 06/26/17 13:50 06/26/17 13:50 06/26/17 13:50 06/26/17 13:50 06/26/17 13:50 - Laboratory Result Diagrams: 06/26/17 14:30 06/26/17 14:30 Laboratory results interpreted by me: 06/26/17 06/26/17 14:30 14:30 WBC 3.8 L Total Bilirubin 1.7 H Procedures - Pelvic Exam Pelvic exam Time completed: 17:48 Cultures obtained: Yes Wet prep obtained: Yes Bimanual exam performed: Yes Witnessed by: JAM Bynum Discharge - Discharge Clinical Impression: Sinusitis Qualifiers: Sinusitis location: unspecified location Chronicity: acute Recurrence: non- recurrent Qualified Code(s): J01.90 - Acute sinusitis, unspecified Condition: Stable Disposition: HOME, SELF-CARE Additional Instructions: Return immediately for any new or worsening symptoms. Follow up with primary care provider, call tomorrow to make followup appointment. 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 Prescriptions: Fluticasone Propionate [Flonase Nasal [place] 50 Mcg/[place] 16 gm] 2 sprays NASL Q12 #1 inhaler Sulfamethoxazole/Trimethoprim [Bactrim Ds Tablet] 1 each PO BID #20 tablet Forms: Return to Work
--- NOTE | 2017-06-26 17:43 | RADIOLOGY REPORT (SQ) ---
EXAM DESCRIPTION: U/S NON OB PEL TV W/DOPPLER COMPLETED DATE/TIME: 06/26/2017 5:27 pm REASON FOR STUDY: mirena lodged? pelvic pain COMPARISON: None. TECHNIQUE: Dynamic and static grayscale images acquired of the pelvis via transvaginal approach and recorded on PACS. Additional selected color Doppler and spectral images recorded. LIMITATIONS: None. FINDINGS: UTERUS: Contour normal. No mass. ENDOMETRIAL STRIPE: Mirena IUD is present. CERVIX: 3.1 cm. No nabothian cysts RIGHT OVARY: No abnormal masses. RIGHT OVARY DOPPLER: Normal arterial vascular flow without evidence for torsion. LEFT OVARY: Not seen. LEFT OVARY DOPPLER: Ovary not seen. FREE FLUID: None noted. OTHER: No other significant finding. MEASUREMENTS: UTERUS: 9.1 x 5 x 3.8 cm. ENDOMETRIAL STRIPE: Not measured. RIGHT OVARY: 3.2 x 3.1 x 1.7 cm. LEFT OVARY: Not seen. IMPRESSION: The Mirena IUD is present in the endometrial canal. TECHNICAL DOCUMENTATION: JOB ID: [id number] All Rights Reserved
[2017-06-26] MEDS ORDERED: OXYCODONE-ACETAMINOPHEN 5-325 MG TABLET PO ONE (18:17)
[2017-06-26 19:26] LABS: CHLAM PCR NOT DETECTED (NOT DETECT)
== END 2017-06-26 18:38 | disposition home or self-care (01) ==
LOC: ER 13:29
DX: J01.90 Acute sinusitis, unspecified (principal); R10.30 Lower abdominal pain, unspecified; R06.02 Shortness of breath; R53.83 Other fatigue; Z79.899 Other long term (current) drug therapy
CPT/HCPCS: 36415; 76830; 80053; 81001; 81025; 85025; 87210; 87491; 87591; 93976; 99284

== ENCOUNTER 2017-08-04 12:32 | Emergency (ER) | payer OTHER ==
[2017-08-04 12:48] VITALS: BP 124/84
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
[2017-08-04] MEDS ORDERED: TRAMADOL HCL 50 MG TABLET PO ONE (14:08)
[2017-08-04] MEDS ORDERED: PROMETHAZINE HCL 25 MG TABLET PO ONE (14:08)
[2017-08-04 14:11] LABS: APPEARANCE,URINE SLIGHTLY-CLOUDY; BILIRUBIN,URINE NEGATIVE (NEGATIVE); GLUCOSE, URINE NEGATIVE (NEGATIVE); KETONES,URINE NEGATIVE (NEGATIVE); LEUKOCYTE ESTERASE,URINE NEGATIVE (NEGATIVE); NITRITE,URINE NEGATIVE (NEGATIVE); PROTEIN,URINE NEGATIVE (NEGATIVE); URINE SPECIFIC GRAVITY 1.014; UROBILINOGEN,URINE NEGATIVE mg/dL (<2.0)
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
== END 2017-08-04 16:00 | disposition home or self-care (01) ==
LOC: ER 12:32
DX: S20.212A Contusion of left front wall of thorax, initial encounter (principal); B37.3 Candidiasis of vulva and vagina; R10.9 Unspecified abdominal pain; R07.81 Pleurodynia; Z87.891 Personal history of nicotine dependence; Y09 Assault by unspecified means
CPT/HCPCS: 71250; 81001; 81025; 87210; 87491; 87591; 99284

== ENCOUNTER 2017-11-03 23:50 | Emergency (ER) | payer MEDICAID, OTHER ==
[2017-11-04] MEDS ORDERED: AMOXICILLIN TR/POT CLAVULANATE 500-125 MG TAB PO ONE (02:03)
[2017-11-04] MEDS ORDERED: IBUPROFEN 600 MG TABLET PO ONE (02:03)
[2017-11-04] MEDS ORDERED: ACETAMINOPHEN 325 MG TABLET PO ONE (02:03)
--- NOTE | 2017-11-04 02:11 | ER Document Report ---
ED General - General Chief Complaint: Sinus Pain Stated Complaint: SINUS PAIN Time Seen by Provider: 11/04/17 00:44 Notes: Patient is a 37-year-old female without chronic medical problems who presents with bilateral maxillary sinus pain worse on the left. She describes as severe , constant, throbbing pain. She states the pain is so severe "that I cannot turn my neck". Patient is however noted to be turning her neck freely during examination. She states that she has had similar symptoms with sinusitis in the past. She states she has tried ibuprofen with minimal relief of her pain. Touching area worsens the pain. She denies any associated fever, vomiting, difficulty breathing or swallowing. She has not seen her primary doctor regarding today's concerns. TRAVEL OUTSIDE OF THE [place] IN LAST 30 DAYS: No - Related Data Allergies/Adverse Reactions: metoclopramide [From [facility]] Adverse Reaction (Verified 11/03/17 23:54) Past Medical History - General Information source: Patient - Social History Smoking Status: Never Smoker Frequency of alcohol use: None Drug Abuse: None Lives with: Family Family History: Reviewed & Not Pertinent, DM, Hypertension, Malignancy Patient has suicidal ideation: No Patient has homicidal ideation: No - Past Medical History Cardiac Medical History: Reports: Hx Hypertension - Not on-any medications Neurological Medical History: Reports: Hx Migraine Renal/ Medical History: Reports: Hx Ovarian Cysts. Denies: Hx Peritoneal Dialysis GI Medical History: Reports: Hx Colonoscopy Musculoskeltal Medical History: Reports Hx Musculoskeletal Deformity, Reports Hx Musculoskeletal Trauma Psychiatric Medical History: Reports: Hx Anxiety, Hx Depression - anxiety Past Surgical History: Reports: Hx Gynecologic Surgery - laparoscopy sent cells to lab, Hx Tubal Ligation - Immunizations Immunizations up to date: Yes Hx Diphtheria, Pertussis, Tetanus Vaccination: Yes Review of Systems - Review of Systems Notes: Constitutional: Negative for fever. HENT: Positive for bilateral maxillary sinus pain Eyes: Negative for visual changes. Cardiovascular: Negative for chest pain. Respiratory: Negative for shortness of breath. Gastrointestinal: Negative for abdominal pain, vomiting or diarrhea. Genitourinary: Negative for dysuria. Musculoskeletal: Negative for back pain. Skin: Negative for rash. Neurological: Negative for headaches, weakness or numbness. 10 point ROS negative except as marked above and in HPI. Physical Exam - Vital signs Vitals: Temp Pulse Resp BP Pulse Ox 99.0 F 65 16 137/79 H 98 11/04/17 00:13 11/04/17 00:13 11/04/17 00:13 11/04/17 00:13 11/04/17 00:13 Interpretation: Normal Notes: PHYSICAL EXAMINATION: GENERAL: Well-appearing, well-nourished and in no acute distress. HEAD: Atraumatic, normocephalic. EYES: Pupils equal round and reactive to light, extraocular movements intact, sclera anicteric, conjunctiva are normal. ENT: nares patent, oropharynx clear without exudates. There is mild fullness of the left maxillary sinus pain on palpation. NECK: Normal range of motion, supple without lymphadenopathy LUNGS: Breath sounds clear to auscultation bilaterally and equal. No wheezes rales or rhonchi. HEART: Regular rate and rhythm without murmurs ABDOMEN: Soft, nontender, normoactive bowel sounds. No guarding, no rebound. No masses appreciated. EXTREMITIES: Normal range of motion, no pitting or edema. No cyanosis. NEUROLOGICAL: No focal neurological deficits. Moves all extremities spontaneously and on command. PSYCH: Normal mood, normal affect. SKIN: Warm, Dry, normal turgor, no rashes or lesions noted. Course - Re-evaluation Re-evalutation: 11/04/17 02:04 Patient presents with signs and symptoms concerning for possible bacterial axillary sinusitis on the left. She is otherwise very well in appearance, no acute distress, vitals within normal limits. She does not meet sepsis criteria. There is no airway compromise, no stridor, no difficulty swallowing. Nothing to suggest a facial abscess or indication for CT imaging of the face or neck at this time. Patient has been started on Augmentin. She has been encouraged to take Tylenol and ibuprofen together as needed for pain. At this time will discharge with return precautions and follow-up recommendations. Verbal discharge instructions given a the bedside and opportunity for questions given. Medication warnings reviewed. Patient is in agreement with this plan and has verbalized understanding of return precautions and the need for primary care follow-up in the next 24-72 hours. - Vital Signs Vital signs: Temp Pulse Resp BP Pulse Ox 97.7 F 72 14 140/80 H 98 11/04/17 02:31 11/04/17 02:31 11/04/17 02:31 11/04/17 02:31 11/04/17 02:31 Discharge - Discharge Clinical Impression: Maxillary sinusitis, acute Qualifiers: Recurrence: recurrent Qualified Code(s): J01.01 - Acute recurrent maxillary sinusitis Condition: Good Disposition: HOME, SELF-CARE Additional Instructions: Take the antibiotics as prescribed. For your pain: Take ibuprofen 600 mg and acetaminophen 1000 mg every 6 hours together as needed for pain. Return if you develop fever, persistent vomiting, worsening pain, pass out, have severe headache, or any other symptoms that are worrisome to you. Prescriptions: Amoxicillin/Potassium Clav [Augmentin 875-125 Tablet] 1 each PO BID #7 tablet
[2017-11-04 02:34] VITALS: BP 140/80
== END 2017-11-04 02:34 | disposition home or self-care (01) ==
LOC: ER 23:50
DX: J01.01 Acute recurrent maxillary sinusitis (principal); Z98.51 Tubal ligation status
CPT/HCPCS: 99283; J3490 ×3

== ENCOUNTER 2017-11-19 14:59 | Emergency (ER) | payer MEDICAID ==
--- NOTE | 2017-11-19 16:11 | ER Document Report ---
ED General - General Chief Complaint: Other Stated Complaint: WITHDRAWAL Time Seen by Provider: 11/19/17 15:05 Information source: Patient Notes: Very polite 37-year-old female with past medical history supposedly of some slightly elevated blood pressure who presents today stating since mid October she "has not felt right". Patient is followed by the primary care physician Dr. Beal. Patient has been on Klonopin for an extended number of years and lost her job in the beginning of October so had a switch doctors to a new physician. This new physician decreased her Klonopin and placed on Effexor. She states since being placed on Effexor she has felt "shaky and tremulous". She denies any headache, neck pain, fevers, chest pain, vomiting, or diarrhea. Patient did see her primary doctor again, Dr. Beal. Patient denies a history of bipolar disorder. She denies any auditory or visual hallucinations. She denies any suicidal or homicidal ideations. TRAVEL OUTSIDE OF THE [place] IN LAST 30 DAYS: No - HPI Onset: Other - See above Onset/Duration: Gradual Quality of pain: No pain Severity: Mild Pain Level: 1 Associated symptoms: Other - See above Exacerbated by: Denies Relieved by: Denies Similar symptoms previously: No Recently seen / treated by doctor: No - Related Data Allergies/Adverse Reactions: metoclopramide [From Reglan] Adverse Reaction (Verified 11/03/17 23:54) Past Medical History - General Information source: Patient - Social History Smoking Status: Never Smoker Cigarette use (# per day): No Chew tobacco use (# tins/day): Yes Smoking Education Provided: No Frequency of alcohol use: None Drug Abuse: None Family History: Reviewed & Not Pertinent, DM, Hypertension, Malignancy Patient has suicidal ideation: No Patient has homicidal ideation: No - Past Medical History Cardiac Medical History: Reports: Hx Hypertension - Not on-any medications Neurological Medical History: Reports: Hx Migraine Renal/ Medical History: Reports: Hx Ovarian Cysts. Denies: Hx Peritoneal Dialysis GI Medical History: Reports: Hx Colonoscopy Musculoskeltal Medical History: Reports Hx Musculoskeletal Deformity, Reports Hx Musculoskeletal Trauma Psychiatric Medical History: Reports: Hx Anxiety, Hx Depression - anxiety Past Surgical History: Reports: Hx Gynecologic Surgery - laparoscopy sent cells to lab, Hx Tubal Ligation - Immunizations Immunizations up to date: Yes Hx Diphtheria, Pertussis, Tetanus Vaccination: Yes Review of Systems - Review of Systems Constitutional: denies: Fever EENT: Nose discharge. denies: Eye discharge Cardiovascular: denies: Chest pain, Palpitations Respiratory: denies: Short of breath Gastrointestinal: denies: Abdominal pain, Vomiting Genitourinary: denies: Dysuria Musculoskeletal: denies: Leg swelling Skin: Other - no hives. denies: Rash Neurological/Psychological: Other - no slurred speech -: Yes All other systems reviewed and negative Physical Exam - Vital signs Vitals: Temp Pulse Resp BP Pulse Ox 98.6 F 89 18 146/95 H 100 11/19/17 15:05 11/19/17 15:05 11/19/17 15:05 11/19/17 15:05 11/19/17 15:05 Notes: Reviewed vital signs and nursing note as charted by RN. CONSTITUTIONAL: Alert and oriented and responds appropriately to questions. Well -appearing; well-nourished HEAD: Normocephalic; atraumatic EYES: PERRL; no nystagmus noted ENT: Normal nose; no rhinorrhea; moist mucous membranes; pharynx without lesions noted NECK: Supple without meningismus; non-tender CARD: Regular rate and rhythm; no murmurs RESP: Normal chest excursion without splinting or tachypnea; breath sounds clear and equal bilaterally ABD/GI: Normal bowel sounds; non-distended; soft, non-tender BACK: The back appears normal and is non-tender to palpation EXT: Normal ROM in all joints; non-tender to palpation; no edema SKIN: No acute lesions noted NEURO: Moves all extremities equally; Motor and sensory function intact PSYCH: Tearful in affect Course - Re-evaluation Re-evalutation: 11/19/17 16:13 Given the history and physical examination, with the patient already having a prescription for Klonopin, I do not believe that this is Klonopin withdrawal. I have called the patient's primary care physician Dr. Beal. He agrees with holding on the Effexor. I will have behavior health consult on the patient. Dr. Beal states that he is not aware of any history of bipolar schizophrenia in the patient. He is not aware of any suicidal ideations in the past. Patient currently denies any suicidal or homicidal ideations. We will have behavior health see and evaluate the patient and possibly make new medication regimens. Dr. Beal the primary care physician states that he will follow-up with the patient in the clinic. 11/19/17 17:33 Labs as recorded. The psychology team is seen and evaluated the patient. They wanted to start the patient on BuSpar and change her Effexor extended release 75 mg a day to 35.5 twice a day. I discussed this with the patient and she states she absolutely "will never take Effexor again". The psychology team was worried about possibly the patient withdrawing and tapering the Klonopin causing the jitteriness. The patient states she is only taken a half a tablet of Klonopin per week since October 23. I therefore do not believe that this is a Klonopin withdrawal. I have tried to call the psychology team on multiple occasions as well as paged texted and called Dr. Mcdowell. I am unable to contact them as it is currently after hours. I therefore would discontinue the Effexor and start the patient on BuSpar. Patient understands to follow-up with the primary care physician. Patient also has a an appointment with the psychology team at [facility] on November 26. Patient is pleased with this plan and promises to return with any new or worrisome symptoms. - Vital Signs Vital signs: Temp Pulse Resp BP Pulse Ox 98.6 F 89 18 146/95 H 100 11/19/17 15:05 11/19/17 15:05 11/19/17 15:05 11/19/17 15:05 11/19/17 15:05 - Laboratory Result Diagrams: 11/19/17 16:23 11/19/17 16:23 Laboratory results interpreted by me: 11/19/17 11/19/17 16:23 16:23 WBC 3.6 L Salicylates < 1.0 L Acetaminophen < 10 L Discharge - Discharge Clinical Impression: Anxiety Medication reaction Qualifiers: Encounter type: initial encounter Qualified Code(s): T88.7XXA - Unspecified adverse effect of drug or medicament, initial encounter Condition: Good Disposition: HOME, SELF-CARE Additional Instructions: Please start the new medication that we have prescribed. Please follow-up with [facility] at your scheduled appointment next week. Please make sure that she follow- up with Dr. Beal your primary care physician as we have help expedite. Come back immediately for any increased anxiety, jitteriness, thoughts of injuring yourself or others, or any other acute problems. Prescriptions: Buspirone HCl [Buspar 10 mg Tablet] 10 mg PO BID #30 tablet
[2017-11-19 16:31] LABS: ABSOLUTE EOSINOPHILS # (AUTO) 0.1 10^3/uL (0.0-0.6); ABSOLUTE LYMPHOCYTES (AUTO) 1.1 10^3/uL (0.5-4.7); ABSOLUTE MONOCYTES (AUTO) 0.4 10^3/uL (0.1-1.4); ABSOLUTE NEUT (AUTO) 2.1 10^3/uL (1.7-8.2); EOSINOPHILS % (AUTO) 1.7 % (0-6); HEMATOCRIT 41.1 % (36.0-47.0); HEMOGLOBIN 13.7 g/dL (12.0-15.5); LYMPHOCYTES % (AUTO) 30.2 % (13-45); MEAN CORPUSCULAR HEMOGLOBIN 29.8 pg (27.0-33.4); MEAN CORPUSCULAR HGB CONC 33.4 g/dL (32.0-36.0); MEAN CORPUSCULAR VOLUME 89 fl (80-97); MONOCYTES % (AUTO) 9.8 % (3-13); PLATELET COUNT 298 10^3/uL (150-450); RED BLOOD COUNT 4.61 10^6/uL (3.72-5.28); RED CELL DISTRIBUTION WIDTH 13.5 % (11.5-14.0); SEGMENTED NEUTROPHILS % (AUTO) 57.3 % (42-78); TOTAL CELLS COUNTED % (AUTO) 100 %; WHITE BLOOD COUNT 3.6 10^3/uL (4.0-10.5)
[2017-11-19 16:40] LABS: AMORPHOUS SEDIMENT,URINE TRACE /HPF; APPEARANCE,URINE SLIGHTLY-CLOUDY; BILIRUBIN,URINE NEGATIVE (NEGATIVE); COLOR,URINE YELLOW; GLUCOSE, URINE NEGATIVE (NEGATIVE); KETONES,URINE NEGATIVE (NEGATIVE); LEUKOCYTE ESTERASE,URINE NEGATIVE (NEGATIVE); NITRITE,URINE NEGATIVE (NEGATIVE); PROTEIN,URINE NEGATIVE (NEGATIVE); URINE SPECIFIC GRAVITY 1.011; UROBILINOGEN,URINE NEGATIVE mg/dL (<2.0)
[2017-11-19 16:50] LABS: ALANINE AMINOTRANSFERASE 32 U/L (9-52); ALBUMIN 4.2 g/dL (3.5-5.0); ALKALINE PHOSPHATASE 54 U/L (38-126); ANION GAP 9 (5-19); ASPARTATE AMINO TRANSFERASE 21 U/L (14-36); BILIRUBIN,DIRECT 0.2 mg/dL (0.0-0.4); BLOOD UREA NITROGEN 9 mg/dL (7-20); CALCIUM 9.4 mg/dL (8.4-10.2); CARBON DIOXIDE 28 mmol/L (22-30); CHLORIDE 105 mmol/L (98-107); GLUCOSE 83 mg/dL (75-110); POTASSIUM 4.1 mmol/L (3.6-5.0); SODIUM 141.9 mmol/L (137-145); TOTAL PROTEIN 7.2 g/dL (6.3-8.2)
[2017-11-19 16:51] LABS: ACETAMINOPHEN < 10 ug/mL (10-30); SALICYLATE < 1.0 mg/dL (2.0-20.0)
[2017-11-19 16:53] LABS: URINE AMPHETAMINES SCREEN NEGATIVE; URINE BARBITURATES SCREEN NEGATIVE; URINE BENZODIAZEPINES SCREEN NEGATIVE; URINE COCAINE SCREEN NEGATIVE; URINE MARIJUANA (THC) SCREEN NEGATIVE; URINE METHADONE SCREEN NEGATIVE; URINE PHENCYCLIDINE SCREEN NEGATIVE
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
[2017-11-19] MEDS ORDERED: BUSPIRONE HCL 10 MG TABLET PO ONE (17:47)
[2017-11-19 18:19] VITALS: BP 147/94
== END 2017-11-19 18:09 | disposition home or self-care (01) ==
LOC: ER 14:59
DX: F41.9 Anxiety disorder, unspecified (principal); T43.215A Adverse effect of selective serotonin and norepinephrine reuptake inhibitors, initial encounter; Z72.0 Tobacco use; I10 Essential (primary) hypertension; R09.89 Other specified symptoms and signs involving the circulatory and respiratory systems
CPT/HCPCS: 99285; 36415; 80307 ×3; 85025; 81025; 80053; 81001; J3490

== ENCOUNTER 2018-02-09 22:06 | Emergency (ER) | payer MEDICAID, OTHER ==
[2018-02-09] MEDS ORDERED: AMOXICILLIN TR/POT CLAVULANATE 500-125 MG TAB PO ONE (23:52)
--- NOTE | 2018-02-09 23:53 | ER Document Report ---
ED General - General Chief Complaint: Sore Throat Stated Complaint: RIB PAIN Time Seen by Provider: 02/09/18 22:33 Notes: The patient is a 37 year old female with a past medical history of hypertension who presents with multiple complaints. Her main concern is 3 weeks of bilateral sinus pressure and pain with an associated frontal headache. She describes the pain as being a throbbing, constant, aching pain. She states that nothing seems to improve or worsen the pain. She has a history of similar sinus infections in the past that have improved with antibiotic treatment she also notes that she feels very fatigued, forgetful and generally weak. She attributes this to recently titrating off clonazepam which she states that she was placed on for hypertension. She states that she saw her primary care doctor regarding these issues but "he never listens". She denies any focal weakness, numbness, fever, vomiting, changes in vision, or abdominal pain. No chest pain or shortness of breath. TRAVEL OUTSIDE OF THE [place] IN LAST 30 DAYS: No - Related Data Allergies/Adverse Reactions: metoclopramide [From Reglan] Adverse Reaction (Verified 11/03/17 23:54) Past Medical History - General Information source: Patient - Social History Smoking Status: Never Smoker Chew tobacco use (# tins/day): Yes Frequency of alcohol use: None Drug Abuse: None Lives with: Alone Family History: Reviewed & Not Pertinent, DM, Hypertension, Malignancy Patient has suicidal ideation: No Patient has homicidal ideation: No - Past Medical History Cardiac Medical History: Reports: Hx Hypertension - Not on-any medications Neurological Medical History: Reports: Hx Migraine Renal/ Medical History: Reports: Hx Ovarian Cysts. Denies: Hx Peritoneal Dialysis GI Medical History: Reports: Hx Colonoscopy Musculoskeltal Medical History: Reports Hx Musculoskeletal Deformity, Reports Hx Musculoskeletal Trauma Psychiatric Medical History: Reports: Hx Anxiety, Hx Depression - anxiety Past Surgical History: Reports: Hx Gynecologic Surgery - laparoscopy sent cells to lab, Hx Tubal Ligation - Immunizations Immunizations up to date: Yes Hx Diphtheria, Pertussis, Tetanus Vaccination: Yes Review of Systems - Review of Systems Notes: Constitutional: Negative for fever. HENT: Positive for bilateral maxillary and frontal sinus pain Eyes: Negative for visual changes. Cardiovascular: Negative for chest pain. Respiratory: Negative for shortness of breath. Gastrointestinal: Negative for abdominal pain, vomiting or diarrhea. Genitourinary: Negative for dysuria. Musculoskeletal: Negative for back pain. Skin: Negative for rash. Neurological: Positive for headache 10 point ROS negative except as marked above and in HPI. Physical Exam - Vital signs Vitals: Temp Pulse Resp BP Pulse Ox 99.2 F 83 18 130/82 H 98 02/09/18 22:14 02/09/18 22:14 02/09/18 22:14 02/09/18 22:14 02/09/18 22:14 Interpretation: Normal Notes: PHYSICAL EXAMINATION: GENERAL: Well-appearing, well-nourished and in no acute distress. HEAD: Atraumatic, normocephalic. EYES: Pupils equal round and reactive to light, extraocular movements intact, sclera anicteric, conjunctiva are normal. ENT: nares patent, oropharynx clear without exudates. Moist mucous membranes. NECK: Normal range of motion, supple without lymphadenopathy LUNGS: Breath sounds clear to auscultation bilaterally and equal. No wheezes rales or rhonchi. HEART: Regular rate and rhythm without murmurs ABDOMEN: Soft, nontender, normoactive bowel sounds. No guarding, no rebound. No masses appreciated. EXTREMITIES: Normal range of motion, no pitting or edema. No cyanosis. NEUROLOGICAL: Face symmetric. Tongue protrudes midline. Extraocular motions intact. Pupils are 2 mm and equally reactive. Normal speech, normal gait. 5 out of 5 strength in both the distal and proximal upper and lower extremities bilaterally. Sensation is grossly intact throughout. Finger to nose testing normal. Pronator drift normal. PSYCH: Normal mood, normal affect. SKIN: Warm, Dry, normal turgor, no rashes or lesions noted. Course - Re-evaluation Re-evalutation: 02/09/18 23:52 Patient presents with multiple vague complaints that did not appear to be concerning for any acute life-threatening pathology. Patient's clinical history appears to be most consistent with an acute on chronic sinusitis as well as possible clonazepam withdrawal. Vitals are within normal limits at triage and at time of discharge. Physical examination is unremarkable. Patient has tolerated oral intake without difficulty. Patient was not noted to be in distress at any point during their ER visit. At this time, based on the reassuring evaluation, I do not suspect an acute NM, pulmonary embolus, aortic dissection, acute intra-abdominal pathology, stroke, or sepsis.Will discharge with return precautions and follow-up recommendations. Verbal discharge instructions given a the bedside and opportunity for questions given. Medication warnings reviewed. Patient is in agreement with this plan and has verbalized understanding of return precautions and the need for primary care follow-up in the next 24-72 hours. - Vital Signs Vital signs: Temp Pulse Resp BP Pulse Ox 99.0 F 82 18 138/88 H 98 02/10/18 00:42 02/10/18 00:42 02/10/18 00:42 02/10/18 00:42 02/10/18 00:42 Discharge - Discharge Clinical Impression: Sinusitis Qualifiers: Sinusitis location: unspecified location Chronicity: acute Recurrence: recurrent Qualified Code(s): J01.91 - Acute recurrent sinusitis, unspecified Headache Qualifiers: Headache type: unspecified Headache chronicity pattern: acute headache Intractability: not intractable Qualified Code(s): R51 - Headache Fatigue Qualifiers: Fatigue type: unspecified Qualified Code(s): R53.83 - Other fatigue Condition: Good Disposition: HOME, SELF-CARE Additional Instructions: Your being treated with antibiotics for a sinusitis. Please take as directed until completed. Please continue to withhold taking clonazepam. Return if you develop a fever greater than 101F, persistent vomiting, pass out, develop focal weakness or numbness, or have any other symptoms that are worrisome to you. Prescriptions: Amox Tr/Potassium Clavulanate [Augmentin 875-125 Tablet] 1 tab PO BID 10 Days tablet Referrals: OPAL BRASWELL MD [Primary Care Provider] - Follow up as needed
[2018-02-10] MEDS ORDERED: IBUPROFEN 600 MG TABLET PO ONE (00:33)
[2018-02-10 00:43] VITALS: BP 138/88
== END 2018-02-10 00:43 | disposition home or self-care (01) ==
LOC: ER 22:06
DX: J01.91 Acute recurrent sinusitis, unspecified (principal); R51 Headache; R53.83 Other fatigue; I10 Essential (primary) hypertension; R53.1 Weakness; R41.3 Other amnesia
CPT/HCPCS: 99282; J3490 ×2

== ENCOUNTER 2018-03-02 13:56 | Emergency (ER) | payer MEDICAID ==
--- NOTE | 2018-03-02 14:54 | ER Document Report ---
ED Medical Screen (RME) - General Chief Complaint: Dizziness Stated Complaint: ABDOMINAL PAIN Time Seen by Provider: 03/02/18 14:46 Mode of Arrival: Ambulatory Information source: Patient Notes: 37-year-old female presents with complaints of burning on urination suprapubic cramping. Patient believes she has a UTI, patient is also concerned of possible herpes exposure from her notes he is on acyclovir I have greeted and performed a rapid initial assessment of this patient. A comprehensive ED assessment and evaluation of the patient, analysis of test results and completion of the medical decision making process will be conducted by additional ED providers. PHYSICAL EXAMINATION: GENERAL: Well-appearing, well-nourished and in no acute distress. HEAD: Atraumatic, normocephalic. EYES: Pupils equal round extraocular movements intact, conjunctiva are normal. ENT: Nares patent NECK: Normal range of motion LUNGS: No respiratory distress Musculoskeletal: Normal range of motion NEUROLOGICAL: Normal speech, normal gait. PSYCH: Normal mood, normal affect. SKIN: Warm, Dry, normal turgor, no rashes or lesions noted. TRAVEL OUTSIDE OF THE [place] IN LAST 30 DAYS: No - Related Data Allergies/Adverse Reactions: metoclopramide [From Reglan] Adverse Reaction (Verified 03/02/18 14:52) Past Medical History - Social History Chew tobacco use (# tins/day): Yes Frequency of alcohol use: None Drug Abuse: None - Past Medical History Cardiac Medical History: Reports: Hx Hypertension - Not on-any medications Neurological Medical History: Reports: Hx Migraine Renal/ Medical History: Reports: Hx Ovarian Cysts. Denies: Hx Peritoneal Dialysis GI Medical History: Reports: Hx Colonoscopy Musculoskeltal Medical History: Reports Hx Musculoskeletal Deformity, Reports Hx Musculoskeletal Trauma Psychiatric Medical History: Reports: Hx Anxiety, Hx Depression - anxiety Past Surgical History: Reports: Hx Gynecologic Surgery - laparoscopy sent cells to lab, Hx Tubal Ligation - Immunizations Immunizations up to date: Yes Hx Diphtheria, Pertussis, Tetanus Vaccination: Yes Physical Exam - Vital signs Vitals: Temp Pulse Resp BP Pulse Ox 98.8 F 77 16 155/94 H 97 03/02/18 14:01 03/02/18 14:01 03/02/18 14:01 03/02/18 14:01 03/02/18 14:01 Course - Vital Signs Vital signs: Temp Pulse Resp BP Pulse Ox 98.8 F 77 16 155/94 H 97 03/02/18 14:01 03/02/18 14:01 03/02/18 14:01 03/02/18 14:01 03/02/18 14:01 Doctor's Discharge - Discharge Referrals: OPAL BRASWELL MD [Primary Care Provider] - Follow up as needed
--- NOTE | 2018-03-02 15:35 | ER Document Report ---
ED General - General Chief Complaint: Dizziness Stated Complaint: ABDOMINAL PAIN Time Seen by Provider: 03/02/18 14:46 Mode of Arrival: Ambulatory Information source: Patient Notes: 37-year-old female presents emergency department with complaints of sinus pressure. Patient states that she has had this pressure for the last 3 weeks. She was prescribed Augmentin 1 week ago. Patient states that this did not help with her symptoms. She is continuing to have sinus pressure. Patient requesting a different antibiotic. Patient denies any vision changes, earache, nasal congestion, sore throat. She has followed up with her primary care physician for her chronic sinus pressure and has been referred to ENT. Patient also concerned because she is having some dysuria, increased urgency and increased frequency. This is been going on for the last 3 weeks. Patient states that she has not taken any medication for her urinary tract infection. Denies vaginal bleeding. has herpes. Patient concerned about contacting herpes. TRAVEL OUTSIDE OF THE [place] IN LAST 30 DAYS: No - HPI Onset: Other - 3 weeks Onset/Duration: Gradual Quality of pain: Pressure Severity: Mild Associated symptoms: None Exacerbated by: Denies Relieved by: Denies Similar symptoms previously: Yes Recently seen / treated by doctor: Yes - Related Data Allergies/Adverse Reactions: metoclopramide [From Reglan] Adverse Reaction (Verified 03/02/18 14:52) Past Medical History - General Information source: Patient - Social History Smoking Status: Never Smoker Chew tobacco use (# tins/day): Yes Frequency of alcohol use: None Drug Abuse: None Family History: Reviewed & Not Pertinent, DM, Hypertension, Malignancy Patient has suicidal ideation: No Patient has homicidal ideation: No - Past Medical History Cardiac Medical History: Reports: Hx Hypertension - Not on-any medications Neurological Medical History: Reports: Hx Migraine Renal/ Medical History: Reports: Hx Ovarian Cysts. Denies: Hx Peritoneal Dialysis GI Medical History: Reports: Hx Colonoscopy Musculoskeltal Medical History: Reports Hx Musculoskeletal Deformity, Reports Hx Musculoskeletal Trauma Psychiatric Medical History: Reports: Hx Anxiety, Hx Depression - anxiety Past Surgical History: Reports: Hx Gynecologic Surgery - laparoscopy sent cells to lab, Hx Tubal Ligation - Immunizations Immunizations up to date: Yes Hx Diphtheria, Pertussis, Tetanus Vaccination: Yes Review of Systems - Review of Systems Constitutional: No symptoms reported EENT: Sinus pressure Cardiovascular: No symptoms reported Respiratory: No symptoms reported Gastrointestinal: No symptoms reported Genitourinary: Burning, Dysuria, Frequency, Urgency Female Genitourinary: No symptoms reported Musculoskeletal: No symptoms reported Skin: No symptoms reported Hematologic/Lymphatic: No symptoms reported Neurological/Psychological: No symptoms reported -: Yes All other systems reviewed and negative Physical Exam - Vital signs Vitals: Temp Pulse Resp BP Pulse Ox 98.8 F 77 16 155/94 H 97 03/02/18 14:01 03/02/18 14:01 03/02/18 14:01 03/02/18 14:01 03/02/18 14:01 Interpretation: Normal - Notes Notes: PHYSICAL EXAMINATION: GENERAL: Well-appearing, well-nourished and in no acute distress. HEAD: Atraumatic, normocephalic. No sinus tenderness to palpation. EYES: Pupils equal round and reactive to light, extraocular movements intact, conjunctiva are normal. ENT: Nares patent, oropharynx clear without exudates. Moist mucous membranes. TM clear. No buldging. No erythema. No mastoid tenderness. NECK: Normal range of motion, supple without lymphadenopathy LUNGS: Breath sounds clear to auscultation bilaterally and equal. No wheezes rales or rhonchi. HEART: Regular rate and rhythm without murmurs ABDOMEN: Soft, nontender, nondistended abdomen. No guarding, no rebound. No masses appreciated. Female : No ulcerative lesions appreciated. White discharge seen. Patient says this is abnormal for her. She did have Cervical motion tenderness. No ovarian tenderness. Musculoskeletal: Normal range of motion, no pitting or edema. No cyanosis. NEUROLOGICAL: Cranial nerves grossly intact. Normal speech, normal gait. Normal sensory, motor exams PSYCH: Normal mood, normal affect. SKIN: Warm, Dry, normal turgor, no rashes or lesions noted. Course - Re-evaluation Re-evalutation: 03/02/18 16:34 Patient requesting treatment for STDs. Given rocephin and azithromycin in the ED. 03/02/18 17:14 UA is normal. Pelvic exam done. No ulcerations suggestive of herpes appreciated. Vaginal discharge set to lab. No trichomonas. No clue cells. Patient treated for gonorrhea and chlamydia. Patient did not have any tenderness to palpation of the sinuses. PCP has already referred to ENT for chronic sinus pressure. I instructed patient to follow through with the plan of care. Patient instructed to follow-up with her primary care physician this week , to schedule an appointment with ENT, to take [id number] medications as needed for symptom relief, and to return to emergency department for worsening symptoms. 03/02/18 17:17 - Vital Signs Vital signs: Temp Pulse Resp BP Pulse Ox 98.8 F 77 16 155/94 H 97 03/02/18 14:01 03/02/18 14:01 03/02/18 14:01 03/02/18 14:01 03/02/18 14:01 Discharge - Discharge Clinical Impression: Cervicitis Condition: Good Disposition: HOME, SELF-CARE Instructions: Cervicitis ([facility]) Referrals: OPAL BRASWELL MD [Primary Care Provider] - Follow up as needed
[2018-03-02 15:39] LABS: APPEARANCE,URINE CLEAR; BILIRUBIN,URINE NEGATIVE (NEGATIVE); COLOR,URINE STRAW; GLUCOSE, URINE NEGATIVE (NEGATIVE); KETONES,URINE NEGATIVE (NEGATIVE); LEUKOCYTE ESTERASE,URINE NEGATIVE (NEGATIVE); NITRITE,URINE NEGATIVE (NEGATIVE); PROTEIN,URINE NEGATIVE (NEGATIVE); URINE SPECIFIC GRAVITY 1.008; UROBILINOGEN,URINE NEGATIVE mg/dL (<2.0)
[2018-03-02] MEDS ORDERED: AZITHROMYCIN 250 MG TABLET PO ONE (16:31)
[2018-03-02] MEDS ORDERED: CEFTRIAXONE INJ 250 MG VIAL IM ONE (16:31)
[2018-03-02] MEDS ORDERED: IBUPROFEN 600 MG TABLET PO ONE (16:32)
[2018-03-02 16:55] LABS: BACTERIA (WET MOUNT) 3+ BACTERIA SEEN; EPITHELIALS (WET MOUNT) 4+ EPITHELIALS SEEN; RBCS (WET MOUNT) NO RBCS SEEN; T.VAGINALIS (WET MOUNT) NO TRICHOMONAS SEEN; WBCS (WET MOUNT) 1+ WBCS SEEN; YEAST (WET MOUNT) NO YEAST SEEN
[2018-03-02 17:37] VITALS: BP 145/92
[2018-03-02 18:17] LABS: CHLAM PCR NOT DETECTED (NOT DETECT); GON PCR NOT DETECTED (NOT DETECT)
== END 2018-03-02 17:23 | disposition home or self-care (01) ==
LOC: ER 13:56
DX: N72 Inflammatory disease of cervix uteri (principal); R51 Headache; R30.0 Dysuria; R39.15 Urgency of urination; R35.0 Frequency of micturition; I10 Essential (primary) hypertension
CPT/HCPCS: 99283; 96372; 87210; 82962; 81025; 81001; 87491; 87591; Q0144; J3490; J0696

== ENCOUNTER 2018-04-06 18:36 | Emergency (ER) | payer MEDICAID ==
--- NOTE | 2018-04-06 19:38 | ER Document Report ---
ED Medical Screen (RME) - General Mode of Arrival: Ambulatory Information source: Patient TRAVEL OUTSIDE OF THE [place] IN LAST 30 DAYS: No <GEORGE URBINA - Last Filed: 04/06/18 20:11> <EFE PAUL - Last Filed: 04/06/18 20:48> - General Chief Complaint: Vaginal Bleeding Stated Complaint: BACK PAIN Time Seen by Provider: 04/06/18 19:21 Notes: Patient is a 37 year old female with HPV presents to the emergency department complaining of right flank pain, vaginal spotting and a foul vaginal odor. Patient states she was diagnosed with cervicitis on March 02, 2018 and has been having intermittent flank pain and vaginal bleeding ever since. She states her flank pain is intermittent and would present every 2 hours further describing it as a throbbing. Patient states she received a Mirena IUD in 2014 to help control her period but feel this has been causing her vaginal problems. She states she would like to have her IUD removed. Patient also mentions taking Klonopin (1mg) daily GENERAL: Alert, interacts well. No acute distress. HEAD: Normocephalic, Atraumatic. NECK: Full range of motion. Supple. Trachea midline. LUNGS: Clear to auscultation bilaterally, no wheezes, rales, or rhonchi. No respiratory distress. HEART: Regular rate and rhythm. No murmurs, gallops, or rubs. ABDOMEN: Soft, non-tender. Non-distended. Bowel sounds present in all 4 quadrants. EXTREMITIES: Moves all four extremities spontaneously. PSYCH: Normal affect, normal mood. I have greeted and performed a rapid initial assessment of this patient. A comprehensive ED assessment and evaluation of the patient, analysis of test results and completion of the medical decision making process will be conducted by additional ED providers. (GEORGE URBINA) - Related Data Allergies/Adverse Reactions: metoclopramide [From Reglan] Adverse Reaction (Verified 03/02/18 14:52) Past Medical History - Social History Chew tobacco use (# tins/day): Yes Frequency of alcohol use: None Drug Abuse: None - Past Medical History Cardiac Medical History: Reports: Hx Hypertension - Not on-any medications Neurological Medical History: Reports: Hx Migraine Renal/ Medical History: Reports: Hx Ovarian Cysts. Denies: Hx Peritoneal Dialysis GI Medical History: Reports: Hx Colonoscopy Musculoskeltal Medical History: Reports Hx Musculoskeletal Deformity, Reports Hx Musculoskeletal Trauma Psychiatric Medical History: Reports: Hx Anxiety, Hx Depression - anxiety Past Surgical History: Reports: Hx Gynecologic Surgery - laparoscopy sent cells to lab, Hx Tubal Ligation - Immunizations Immunizations up to date: Yes Hx Diphtheria, Pertussis, Tetanus Vaccination: Yes <GEORGE URBINA - Last Filed: 04/06/18 20:11> - Vital signs Vitals: Temp Pulse Resp BP Pulse Ox 98.4 F 73 18 143/84 H 100 04/06/18 18:44 04/06/18 18:44 04/06/18 18:44 04/06/18 18:44 04/06/18 18:44 Course - Laboratory Result Diagrams: 04/06/18 19:53 04/06/18 19:53 <GEORGE URBINA - Last Filed: 04/06/18 20:11> - Laboratory Result Diagrams: 04/06/18 19:53 04/06/18 19:53 <EFE PAUL - Last Filed: 04/06/18 20:48> - Vital Signs Vital signs: Temp Pulse Resp BP Pulse Ox 98.4 F 73 18 143/84 H 100 04/06/18 18:44 04/06/18 18:44 04/06/18 18:44 04/06/18 18:44 04/06/18 18:44 Doctor's Discharge <GEORGE URBINA - Last Filed: 04/06/18 20:11> <EFE PAUL - Last Filed: 04/06/18 20:48> - Discharge Referrals: OPAL BRASWELL MD [Primary Care Provider] - Follow up as needed
[2018-04-06 20:20] LABS: ABSOLUTE EOSINOPHILS # (AUTO) 0.1 10^3/uL (0.0-0.6); ABSOLUTE LYMPHOCYTES (AUTO) 1.5 10^3/uL (0.5-4.7); ABSOLUTE MONOCYTES (AUTO) 0.4 10^3/uL (0.1-1.4); ABSOLUTE NEUT (AUTO) 2.8 10^3/uL (1.7-8.2); BASOPHILS % (AUTO) 0.8 % (0-2); EOSINOPHILS % (AUTO) 2.4 % (0-6); HEMATOCRIT 40.1 % (36.0-47.0); HEMOGLOBIN 13.4 g/dL (12.0-15.5); LYMPHOCYTES % (AUTO) 30.4 % (13-45); MEAN CORPUSCULAR HGB CONC 33.4 g/dL (32.0-36.0); MEAN CORPUSCULAR VOLUME 90 fl (80-97); MONOCYTES % (AUTO) 9.2 % (3-13); PLATELET COUNT 238 10^3/uL (150-450); RED BLOOD COUNT 4.45 10^6/uL (3.72-5.28); RED CELL DISTRIBUTION WIDTH 13.4 % (11.5-14.0); SEGMENTED NEUTROPHILS % (AUTO) 57.2 % (42-78); TOTAL CELLS COUNTED % (AUTO) 100 %; WHITE BLOOD COUNT 4.9 10^3/uL (4.0-10.5)
[2018-04-06 20:48] LABS: ALANINE AMINOTRANSFERASE 25 U/L (9-52); ALKALINE PHOSPHATASE 47 U/L (38-126); ANION GAP 13 (5-19); ASPARTATE AMINO TRANSFERASE 22 U/L (14-36); BILIRUBIN,DIRECT 0.2 mg/dL (0.0-0.4); BILIRUBIN,TOTAL 0.7 mg/dL (0.2-1.3); BLOOD UREA NITROGEN 11 mg/dL (7-20); CALCIUM 9.3 mg/dL (8.4-10.2); CARBON DIOXIDE 24 mmol/L (22-30); CHLORIDE 105 mmol/L (98-107); GLUCOSE 90 mg/dL (75-110); POTASSIUM 4.7 mmol/L (3.6-5.0); SODIUM 141.5 mmol/L (137-145); TOTAL PROTEIN 7.2 g/dL (6.3-8.2)
[2018-04-06 21:03] LABS: AMORPHOUS SEDIMENT,URINE TRACE /HPF; APPEARANCE,URINE CLOUDY; BILIRUBIN,URINE NEGATIVE (NEGATIVE); COLOR,URINE YELLOW; GLUCOSE, URINE NEGATIVE (NEGATIVE); KETONES,URINE NEGATIVE (NEGATIVE); LEUKOCYTE ESTERASE,URINE LARGE (NEGATIVE); NITRITE,URINE NEGATIVE (NEGATIVE); PROTEIN,URINE NEGATIVE (NEGATIVE); URINE SPECIFIC GRAVITY 1.019; UROBILINOGEN,URINE NEGATIVE mg/dL (<2.0)
[2018-04-06] MEDS ORDERED: KETOROLAC TROMETHAMINE 60 MG/2 ML SDV IM ONE (22:35)
--- NOTE | 2018-04-06 23:43 | ER Document Report ---
ED General - General Chief Complaint: Vaginal Bleeding Stated Complaint: BACK PAIN Time Seen by Provider: 04/06/18 19:21 Mode of Arrival: Ambulatory Information source: Patient Notes: Patient is a 37-year-old female who presents with chief complaint of right flank pain. Patient reports she has taken Motrin with no relief. Patient reports she was diagnosed with cervicitis on March 02. Patient reports abnormal vaginal discharge with abnormal vaginal bleeding. Patient reports that her period typically comes on the 17th of each month however she reports that she has bleeding at this time. Patient denies any fevers, vomiting or diarrhea. TRAVEL OUTSIDE OF THE [place] IN LAST 30 DAYS: No - Related Data Allergies/Adverse Reactions: metoclopramide [From [employer]] Adverse Reaction (Verified 03/02/18 14:52) Past Medical History - General Information source: Patient - Social History Smoking Status: Never Smoker Chew tobacco use (# tins/day): Yes Frequency of alcohol use: None Drug Abuse: None Family History: Reviewed & Not Pertinent, DM, Hypertension, Malignancy Patient has suicidal ideation: No Patient has homicidal ideation: No - Past Medical History Cardiac Medical History: Reports: Hx Hypertension - Not on-any medications Neurological Medical History: Reports: Hx Migraine Renal/ Medical History: Reports: Hx Ovarian Cysts. Denies: Hx Peritoneal Dialysis GI Medical History: Reports: Hx Colonoscopy Musculoskeletal Medical History: Reports Hx Musculoskeletal Deformity, Reports Hx Musculoskeletal Trauma Psychiatric Medical History: Reports: Hx Anxiety, Hx Depression - anxiety Past Surgical History: Reports: Hx Gynecologic Surgery - laparoscopy sent cells to lab, Hx Tubal Ligation - Immunizations Immunizations up to date: Yes Hx Diphtheria, Pertussis, Tetanus Vaccination: Yes Review of Systems - Review of Systems Constitutional: No symptoms reported EENT: No symptoms reported Cardiovascular: No symptoms reported Respiratory: No symptoms reported Gastrointestinal: No symptoms reported Genitourinary: No symptoms reported Female Genitourinary: See HPI Musculoskeletal: See HPI Skin: No symptoms reported Hematologic/Lymphatic: No symptoms reported Neurological/Psychological: No symptoms reported Physical Exam - Vital signs Vitals: Temp Pulse Resp BP Pulse Ox 98.4 F 73 18 143/84 H 100 04/06/18 18:44 04/06/18 18:44 04/06/18 18:44 04/06/18 18:44 04/06/18 18:44 - Notes Notes: PHYSICAL EXAMINATION: GENERAL: Well-appearing, well-nourished and in moderate distress. HEAD: Atraumatic, normocephalic. EYES: Pupils equal round and reactive to light, extraocular movements intact, conjunctiva are normal. ENT: Nares patent, oropharynx clear without exudates. Moist mucous membranes. NECK: Normal range of motion, supple without lymphadenopathy LUNGS: Breath sounds clear to auscultation bilaterally and equal. No wheezes rales or rhonchi. HEART: Regular rate and rhythm without murmurs ABDOMEN: Soft, nontender, nondistended abdomen. No guarding, no rebound. No masses appreciated. Female : Speculum exam reveals blood-tinged mucus from the cervical loss. Cervical motion tenderness present. Right adnexal tenderness. Musculoskeletal: Normal range of motion, no pitting or edema. No cyanosis. NEUROLOGICAL: Cranial nerves grossly intact. Normal speech, normal gait. Normal sensory, motor exams PSYCH: Normal mood, normal affect. SKIN: Warm, Dry, normal turgor, no rashes or lesions noted. Course - Re-evaluation Re-evalutation: Otherwise healthy 37-year-old female presenting with chief complaint of right- sided pelvic pain. Patient reports that she had been taking Motrin with no relief. Patient reports being diagnosed with cervicitis on March 02. CBC and CMP are both unremarkable. HCG is negative. Urinalysis with large leukocytes and large blood. Wet mount reveals 4+ bacteria, positive trichomonas. Chlamydia and gonorrhea are both negative. Transvaginal pelvic ultrasound reveals 2.7 cm right ovarian cyst likely hemorrhagic. Patient updated on results. Patient visually upset with results of positive trichomonas. Patient will be started on antibiotics and encouraged to follow-up with either her primary care provider or the health department for a recheck in approximately 2 weeks. Patient was instructed to refrain from any sexual intercourse until her partner or partners are treated and tested as well. - Vital Signs Vital signs: Temp Pulse Resp BP Pulse Ox 98.2 F 70 16 139/90 H 99 04/07/18 02:33 04/07/18 02:33 04/07/18 02:33 04/07/18 02:33 04/07/18 02:33 - Laboratory Result Diagrams: 04/06/18 19:53 04/06/18 19:53 Laboratory results interpreted by me: 04/06/18 19:53 Urine Blood LARGE H Ur Leukocyte Esterase LARGE H Discharge - Discharge Clinical Impression: infection, trichomonal, Pelvic inflammatory disease (PID) Condition: Stable Disposition: HOME, SELF-CARE Additional Instructions: Trichomonas Infection Trichomoniasis is infection of the vagina or male genital tract with Trichomonas vaginalis. It can be asymptomatic or cause urethritis, vaginitis, or occasionally cystitis, epididymitis, or prostatitis. Diagnosis is by microscopic examination of vaginal or prostatic secretions or by urethral culture. Patients and sex partners are treated with metronidazole. T. vaginalis is a flagellated, sexually transmitted protozoan that more often infects women (about 20% of women of reproductive age) than men. Infection may be asymptomatic in either sex, but asymptomatic is the rule for men. In men, protozoa may persist for long periods in the tract without causing symptoms; thus, protozoa may be transmitted unwittingly to sex partners. Trichomoniasis may account for up to 5% of nongonococcal, nonchlamydial urethritis in men in some areas. Co-infection with gonorrhea and other sexually transmitted diseases (STDs) is common. In women, symptoms range from none to copious, yellow-green, frothy vaginal discharge with soreness of the vulva and perineum, dyspareunia, and dysuria. Asymptomatic infection may become symptomatic at any time as the vulva and perineum become inflamed and edema develops in the labia. The vaginal rea and surface of the cervix may have punctate, red "strawberry" spots. Urethritis and possibly cystitis may also occur. Men are usually asymptomatic; however, sometimes urethritis results in a discharge that may be transient, frothy, or purulent or that causes dysuria and frequency, usually early in the morning. Often, urethritis is mild and causes only minimal urethral irritation and occasional moisture at the urethral meatus , under the foreskin, or both. Epididymitis and prostatitis are rare complications. Trichomoniasis is suspected in women with vaginitis, in men with urethritis , and in their sex partners. Suspicion is high if symptoms persist after patients have been evaluated and treated for other infections such as gonorrhea and chlamydial, mycoplasmal, and ureaplasmal infections. In women, diagnosis is based on clinical criteria and in-office testing. The saline wet mount is examined microscopically as soon as possible to detect trichomonads.In men, microscopy of urine is insensitive, although occasionally organisms are visible in a first-voided morning specimen or a centrifuged specimen. Cultures of urine and urethral swabs are more sensitive. As with diagnosis of any STD, patients with trichomoniasis should be tested to exclude other common STDs such as gonorrhea and chlamydial infection. Metronidazole or tinidazole 2 g po in a single dose cures up to 95% of women if sex partners are treated simultaneously. Effectiveness of single-dose regimens in men is not as clear, so treatment is typically with metronidazole or tinidazole 500 mg bid for 5 to 7 days. Sex partners should be screened and treated for trichomoniasis and other STDs. If poor adherence to follow-up is likely, treatment can be initiated in sex partners of patients with documented trichomoniasis without confirming the diagnosis in the partner. Pelvic Inflammatory Disease You have been diagnosed as having pelvic inflammatory disease (PID). This is an infection of the fallopian tubes and surrounding areas of the pelvis. Symptoms are usually pelvic pain and discharge. The infection can do permanent damage to the tubes and ovaries. It should be taken very seriously. Treatment is antibiotics, which may be given by vein or by injection if the infection seems serious. It's important that you receive all recommended medication. Condoms help prevent spread of this infection to others. Because this infection is spread sexually, it's important that your sexual partner be checked before resuming sexual relations. If a culture shows gonorrhea or chlamydia organisms, the law requires that this be reported to the health department. Call the doctor or return at once if you develop increasing fever, rash, severe pelvic pain, vaginal bleeding (other than your period), or problems with your bladder or bowels. Please take medication as prescribed. Follow-up with the health department for reevaluation in 2 weeks. Do not have sexual intercourse until your treatment has completed do not have sexual intercourse with any of your current partner or partners until they have been treated and are also cleared by the health department. Prescriptions: Doxycycline Hyclate 100 mg PO BID #14 capsule Metronidazole [Flagyl 500 mg Tablet] 500 mg PO Q6H #28 tablet Forms: Return to Work Referrals: OPAL BRASWELL MD [Primary Care Provider] - Follow up as needed
[2018-04-06 23:54] LABS: BACTERIA (WET MOUNT) 4+ BACTERIA SEEN; EPITHELIALS (WET MOUNT) 3+ EPITHELIALS SEEN; RBCS (WET MOUNT) NO RBCS SEEN; T.VAGINALIS (WET MOUNT) TRICHOMONAS SEEN; WBCS (WET MOUNT) 2+ WBCS SEEN; YEAST (WET MOUNT) NO YEAST SEEN
[2018-04-07 01:13] LABS: CHLAM PCR NOT DETECTED (NOT DETECT); GON PCR NOT DETECTED (NOT DETECT)
[2018-04-07] MEDS ORDERED: METRONIDAZOLE 500 MG TABLET PO ONE (02:17)
[2018-04-07] MEDS ORDERED: CEFTRIAXONE INJ 250 MG VIAL IM ONE (02:23)
[2018-04-07] MEDS ORDERED: DOXYCYCLINE HYCLATE 100 MG TABLET PO ONE (02:23)
[2018-04-07] MEDS ORDERED: LIDOCAINE 1% INJ-PF (10 MG/ML) 30 ML SDV INJ ONE (02:23)
--- NOTE | 2018-04-07 02:23 | RADIOLOGY REPORT (SQ) ---
Ultrasound pelvis on 04/07/2018 at 1:28 AM CLINICAL INDICATION: Bilateral pelvic pain, history of PID COMPARISON: 06/26/2017 FINDINGS: Multiple sonographic images are obtained throughout the pelvis by transvaginal approach, both transverse and sagittal images are obtained. Small nabothian cyst is noted in the cervix. Uterus measures approximately 7.8 x 4.4 x 5.3 cm. Intrauterine device is noted in the endometrium. Endometrial stripe measures 1 cm which is within normal limits. Right ovary measures approximately 4.2 x 2.8 x 2.9 cm. Within the right ovary there is a 2.7 x 2.2 x 2.1 cm dominant follicle with internal echoes likely representing a small hemorrhagic ovarian cyst. This should be considered benign with no follow-up recommended. Flow is demonstrated in the right ovary. Left ovary measures approximately 2.7 x 2.1 x 2.5 cm. Flow is demonstrated in the left ovary. Very small amount of free fluid in the pelvis is likely physiologic. IMPRESSION: 2.7 cm complex dominant follicle likely representing a small hemorrhagic ovarian cyst the right ovary. This should be considered benign with no follow-up recommended. Otherwise essentially unremarkable.
[2018-04-07] MEDS ORDERED: HYDROCODONE/ACETAMINOPHEN 5-325 MG (6 TAB/ER DISP) PO PRN (02:34)
[2018-04-07 02:47] VITALS: BP 139/90
== END 2018-04-07 02:55 | disposition home or self-care (01) ==
LOC: ER 18:36
DX: A59.00 Urogenital trichomoniasis, unspecified (principal); N73.8 Other specified female pelvic inflammatory diseases; N93.9 Abnormal uterine and vaginal bleeding, unspecified; R10.2 Pelvic and perineal pain; N83.201 Unspecified ovarian cyst, right side; I10 Essential (primary) hypertension; Z87.42 Personal history of other diseases of the female genital tract
CPT/HCPCS: 99284; 96372; 36415; 87210; 84703; 85025; 80053; 81001; 87491; 87591; 76830; 93976; J3490 ×2; J1885; J0696

== ENCOUNTER 2018-04-28 13:14 | Emergency (ER) | payer MEDICAID ==
[2018-04-28 13:53] VITALS: BP 146/79
[2018-04-28] MEDS ORDERED: ONDANSETRON 4 MG TAB.RAPDIS PO ONE (15:31)
[2018-04-28] MEDS ORDERED: NORMAL SALINE 1000 ML 1,000 ML IV ONE (15:52)
--- NOTE | 2018-04-28 17:00 | RADIOLOGY REPORT (SQ) ---
EXAM DESCRIPTION: U/S NON OB PEL TV W/DOPPLER COMPLETED DATE/TIME: 04/28/2018 4:49 pm REASON FOR STUDY: right adnexa pain LMP 04/02/2018 COMPARISON: 04/07/2018 TECHNIQUE: Dynamic and static grayscale images acquired of the pelvis via transvaginal approach and recorded on PACS. Additional selected color Doppler and spectral images recorded. LIMITATIONS: None. FINDINGS: UTERUS: Contour normal. No mass. ENDOMETRIAL STRIPE: No focal or generalized thickening. No masses. An IUD is present. CERVIX: 3.1 cm. RIGHT OVARY AND DOPPLER: Normal size. No worrisome masses. Normal arterial vascular flow without evid ence for torsion. Two 1 cm cysts/follicles are present. LEFT OVARY AND DOPPLER: Normal size. No worrisome masses. Normal arterial vascular flow without evide nce for torsion. 14 mm cyst is present. FREE FLUID: None noted. OTHER: No other significant finding. MEASUREMENTS: UTERUS: 8.3 x 3.6 x 4.7 cm ENDOMETRIAL STRIPE: 4 mm RIGHT OVARY: 3.3 x 2.1 x 2.5 cm LEFT OVARY: 3.4 x 2.6 x 2 cm IMPRESSION: NORMAL TRANSVAGINAL PELVIC ULTRASOUND. TECHNICAL DOCUMENTATION: JOB ID: [id number] [employer]- All Rights Reserved Rev-01/17 Reading location - IP/workstation name: [email or web address]
[2018-04-28 17:38] LABS: ABSOLUTE EOSINOPHILS # (AUTO) 0.1 10^3/uL (0.0-0.6); ABSOLUTE LYMPHOCYTES (AUTO) 1.5 10^3/uL (0.5-4.7); ABSOLUTE MONOCYTES (AUTO) 0.4 10^3/uL (0.1-1.4); ABSOLUTE NEUT (AUTO) 3.1 10^3/uL (1.7-8.2); BASOPHILS % (AUTO) 0.9 % (0-2); EOSINOPHILS % (AUTO) 1.8 % (0-6); HEMATOCRIT 42.9 % (36.0-47.0); HEMOGLOBIN 14.4 g/dL (12.0-15.5); LYMPHOCYTES % (AUTO) 28.9 % (13-45); MEAN CORPUSCULAR HGB CONC 33.5 g/dL (32.0-36.0); MEAN CORPUSCULAR VOLUME 89 fl (80-97); MONOCYTES % (AUTO) 7.6 % (3-13); PLATELET COUNT 292 10^3/uL (150-450); RED CELL DISTRIBUTION WIDTH 13.5 % (11.5-14.0); SEGMENTED NEUTROPHILS % (AUTO) 60.8 % (42-78); TOTAL CELLS COUNTED % (AUTO) 100 %; WHITE BLOOD COUNT 5.1 10^3/uL (4.0-10.5)
[2018-04-28 18:01] LABS: ALANINE AMINOTRANSFERASE 51 U/L (9-52); ALBUMIN 4.5 g/dL (3.5-5.0); ALKALINE PHOSPHATASE 61 U/L (38-126); ANION GAP 11 (5-19); ASPARTATE AMINO TRANSFERASE 28 U/L (14-36); BILIRUBIN,DIRECT 0.3 mg/dL (0.0-0.4); BLOOD UREA NITROGEN 8 mg/dL (7-20); CALCIUM 9.8 mg/dL (8.4-10.2); CARBON DIOXIDE 28 mmol/L (22-30); CHLORIDE 102 mmol/L (98-107); GLUCOSE 83 mg/dL (75-110); LIPASE 109.9 U/L (23-300); POTASSIUM 4.2 mmol/L (3.6-5.0); SODIUM 141.2 mmol/L (137-145)
--- NOTE | 2018-04-28 18:34 | ER Document Report ---
ED General - General Chief Complaint: Tremor Stated Complaint: SHAKING Time Seen by Provider: 04/28/18 15:17 TRAVEL OUTSIDE OF THE [place] IN LAST 30 DAYS: No - HPI Patient complains to provider of: Tremors nausea possible ovarian cyst Notes: Patient coming in for depressive symptoms. On the patient's sign in sheet patient has placed Klonopin withdrawal. However finally in evaluating the patient patient denies that she wrote this complaint. Patient states that she is coming today for nausea possible ovarian cyst and dehydration. Patient goes on to participate stating that she wanted Klonopin she could ask a named provider for Klonopin patient states that she last had Klonopin approximately 2 days ago. Patient states that some of her symptoms are more likely are from Klonopin withdrawals however she is not concerned about that at this time. Denies fevers chills denies any sick contacts denies any diarrhea. Patient has lower abdominal pain consistent with ovarian cyst in the past. Please review the nursing notes for further patient complaints - Related Data Allergies/Adverse Reactions: metoclopramide [From Reglan] Adverse Reaction (Verified 04/28/18 13:15) Past Medical History - Social History Smoking Status: Unknown if Ever Smoked Family History: Reviewed & Not Pertinent, DM, Hypertension, Malignancy Patient has suicidal ideation: No Patient has homicidal ideation: No - Past Medical History Cardiac Medical History: Reports: Hx Hypertension - Not on-any medications Neurological Medical History: Reports: Hx Migraine Renal/ Medical History: Reports: Hx Ovarian Cysts. Denies: Hx Peritoneal Dialysis GI Medical History: Reports: Hx Colonoscopy Musculoskeletal Medical History: Reports Hx Musculoskeletal Deformity, Reports Hx Musculoskeletal Trauma Psychiatric Medical History: Reports: Hx Anxiety, Hx Depression - anxiety Past Surgical History: Reports: Hx Gynecologic Surgery - laparoscopy sent cells to lab, Hx Tubal Ligation - Immunizations Immunizations up to date: Yes Hx Diphtheria, Pertussis, Tetanus Vaccination: Yes Review of Systems - Review of Systems Constitutional: No symptoms reported EENT: No symptoms reported Cardiovascular: No symptoms reported Respiratory: No symptoms reported Gastrointestinal: Abdominal pain, Nausea - Dehydration Genitourinary: No symptoms reported Female Genitourinary: No symptoms reported Musculoskeletal: No symptoms reported Skin: No symptoms reported Hematologic/Lymphatic: No symptoms reported Neurological/Psychological: No symptoms reported -: Yes All other systems reviewed and negative Physical Exam - Vital signs Vitals: Temp Pulse Resp BP Pulse Ox 98.8 F 98 16 146/79 H 100 04/28/18 13:52 04/28/18 13:52 04/28/18 13:52 04/28/18 13:52 04/28/18 13:52 Interpretation: Normal - General General appearance: Appears well, Alert - HEENT Head: Normocephalic, Atraumatic Eyes: Normal Notes: Patient wearing sunglasses on evaluation - Respiratory Respiratory status: No respiratory distress Chest status: Nontender Breath sounds: Normal Chest palpation: Normal - Cardiovascular Rhythm: Regular Heart sounds: Normal auscultation Murmur: No - Abdominal Inspection: Normal Distension: No distension Bowel sounds: Normal Tenderness: Nontender Organomegaly: No organomegaly - Back Back: Normal, Nontender - Extremities General upper extremity: Normal inspection, Nontender, Normal color, Normal ROM , Normal temperature General lower extremity: Normal inspection, Nontender, Normal color, Normal ROM , Normal temperature, Normal weight bearing. No: Jose's sign - Neurological Neuro grossly intact: Yes Cognition: Normal Orientation: AAOx4 Sudhir Coma Scale Eye Opening: Spontaneous Sudhir Coma Scale Verbal: Oriented Sudhir Coma Scale Motor: Obeys Commands Sudhir Coma Scale Total: 15 Speech: Normal Motor strength normal: LUE, RUE, LLE, RLE Sensory: Normal - Psychological Associated symptoms: Normal affect, Normal mood - Skin Skin Temperature: Warm Skin Moisture: Dry Skin Color: Normal Course - Re-evaluation Re-evalutation: 04/28/18 23:32 Patient does become upset during the HPI process. Patient states that she is not here for Klonopin withdrawals as initially wrote on her sheet however is having nausea some symptoms associated with not having Klonopin which she last took 2 days ago. I reviewed the patient's narcotic database shows multiple prescription for Klonopin of various doses last prescription being filled on 06/2018 1 mg tablets preceding 75. Patient was concerned about ovarian cyst and nausea and being dehydrated. During my initial interview I told patient that we will draw blood work and obtain ultrasound. Patient abruptly interrupts me stating that the only laboratory test that we need is a urinalysis. The patient and we would only run a urinalysis patient continues to be upset and argumentative. I asked the patient what her goals for her ER visit were today patient stated that she wanted to be evaluated for nausea dehydration and ovarian cyst. I explained to the patient that laboratory values will allow me to check her liver function test electrolytes pancreatic enzymes also look for signs of infection that may be causing her underlying nausea and lower abdominal pain we would also obtain an ultrasound and we will check a urinalysis I allow the patient time to the receptive decline these measures before excuse myself from the room is that multiple patients were waiting to be seen later informed by the nurse that the patient did agree to the blood test and to the ultrasound. Ultrasound shows bilateral ovarian cyst 3 total with no signs of torsion. Patient laboratory values did not show any signs of dehydration patient refuses to give a urine at this time and did receive IV fluids. I did review the ultrasound and laboratory results at bedside with the patient patient requested to be discharged. Paperwork was provided to the nursing staff patient left before receiving her discharge papers. - Vital Signs Vital signs: Temp Pulse Resp BP Pulse Ox 98.8 F 98 16 146/79 H 100 04/28/18 13:52 04/28/18 13:52 04/28/18 13:52 04/28/18 13:52 04/28/18 13:52 - Laboratory Result Diagrams: 04/28/18 16:49 04/28/18 16:49 Discharge - Discharge Clinical Impression: Nausea, Shakiness Ovarian cyst Qualifiers: Laterality: bilateral Qualified Code(s): N83.201 - Unspecified ovarian cyst, right side Condition: Good Disposition: HOME, SELF-CARE Instructions: Dehydration ([facility]), Nausea or Vomiting, Nonspecific ([facility]), Ovarian Cyst ([facility]) Additional Instructions: Her laboratory studies today did not show any signs of infection dehydration left lower abnormality. The ultrasound that showed a bilateral ovarian cysts however no other pathology seen on your ultrasound. Recommend follow-up with your primary care physician for further evaluation. Return to the ER for any other concerning issues. Prescriptions: Ondansetron HCl [Zofran 4 mg Tablet] 1 - 2 tab PO Q6 #30 tablet Referrals: OPAL BRASWELL MD [Primary Care Provider] - Follow up as needed
== END 2018-04-28 18:32 | disposition home or self-care (01) ==
LOC: ER 13:14
DX: R25.1 Tremor, unspecified (principal); R11.0 Nausea; N83.202 Unspecified ovarian cyst, left side; N83.201 Unspecified ovarian cyst, right side; R10.30 Lower abdominal pain, unspecified
CPT/HCPCS: 99284; 96360; 36415; 83690; 84703; 85025; 80053; 76830; 93976; S0119; J7030

== ENCOUNTER 2018-06-03 05:02 | Emergency (ER) | payer MEDICAID ==
[2018-06-03] MEDS ORDERED: ONDANSETRON 4 MG TAB.RAPDIS PO ONE (07:28)
[2018-06-03] MEDS ORDERED: IBUPROFEN 600 MG TABLET PO ONE (07:28)
--- NOTE | 2018-06-03 07:32 | ER Document Report ---
ED General - General Chief Complaint: Sore Throat Stated Complaint: SORE THROAT Time Seen by Provider: 06/03/18 07:07 Mode of Arrival: Ambulatory Information source: Patient Notes: Patient is an otherwise healthy 37-year-old female who presents with multiple complaints today. Patient reports sore throat for the last 4 days. Patient reports she is living in a an apartment that has mold. Patient woke up this morning with a headache and nausea. Patient also reports productive cough with white sputum. Patient also wants to be checked for STDs. She does not think she has any however she is hoping we can check her. TRAVEL OUTSIDE OF THE [place] IN LAST 30 DAYS: No - Related Data Allergies/Adverse Reactions: metoclopramide [From [employer]] Adverse Reaction (Verified 04/28/18 13:15) Past Medical History - General Information source: Patient - Social History Smoking Status: Never Smoker Chew tobacco use (# tins/day): Yes Family History: Reviewed & Not Pertinent, DM, Hypertension, Malignancy Patient has suicidal ideation: No Patient has homicidal ideation: No - Past Medical History Cardiac Medical History: Reports: Hx Hypertension - Not on-any medications Neurological Medical History: Reports: Hx Migraine Renal/ Medical History: Reports: Hx Ovarian Cysts. Denies: Hx Peritoneal Dialysis GI Medical History: Reports: Hx Colonoscopy Musculoskeletal Medical History: Reports Hx Musculoskeletal Deformity, Reports Hx Musculoskeletal Trauma Psychiatric Medical History: Reports: Hx Anxiety, Hx Depression - anxiety Past Surgical History: Reports: Hx Gynecologic Surgery - laparoscopy sent cells to lab, Hx Tubal Ligation - Immunizations Immunizations up to date: Yes Hx Diphtheria, Pertussis, Tetanus Vaccination: Yes Review of Systems - Review of Systems EENT: Throat pain Respiratory: Cough Genitourinary: No symptoms reported. denies: Discharge Female Genitourinary: denies: Vaginal discharge, Vaginal odor Neurological/Psychological: Headaches -: Yes All other systems reviewed and negative Physical Exam - Vital signs Vitals: Temp Pulse BP Pulse Ox 98.3 F 74 135/85 H 99 06/03/18 05:14 06/03/18 05:14 06/03/18 05:14 06/03/18 05:14 - Notes Notes: PHYSICAL EXAMINATION: GENERAL: Well-appearing, well-nourished and in no acute distress. HEAD: Atraumatic, normocephalic. EYES: Pupils equal round and reactive to light, extraocular movements intact, conjunctiva are normal. ENT: Nares patent, oropharynx clear without exudates. Moist mucous membranes. NECK: Normal range of motion, supple without lymphadenopathy LUNGS: Breath sounds clear to auscultation bilaterally and equal. No wheezes rales or rhonchi. HEART: Regular rate and rhythm without murmurs ABDOMEN: Soft, nontender, nondistended abdomen. No guarding, no rebound. No masses appreciated. Female : No CVA tenderness. Musculoskeletal: Normal range of motion, no pitting or edema. No cyanosis. NEUROLOGICAL: Cranial nerves grossly intact. Normal speech, normal gait. Normal sensory, motor exams PSYCH: Normal mood, normal affect. SKIN: Warm, Dry, normal turgor, no rashes or lesions noted. Course - Re-evaluation Re-evalutation: 06/03/18 07:32 Patient declines pelvic examination as she states no pelvic pain or abnormal discharge but wants to be checked for STDs. Urine GC/chlamydia will be ordered. Rapid strep sent down although no erythema, exudates or swelling noted as patient is complaining of sore throat times 4 days. Uvula midline and there is no evidence of IN[employer] SPECIALIST. Lung sounds are clear to auscultation bilaterally and patient without fever so will not to do a chest x-ray today. Patient has no abdominal pain but reports mild nausea, will be treated with Zofran. Rapid strep is negative. Chlamydia and gonorrhea are negative. Patient will be given Zofran for nausea. Patient also given some information regarding self treatment for sore throat. - Vital Signs Vital signs: Temp Pulse Resp BP Pulse Ox 97.7 F 64 16 132/76 H 100 06/03/18 09:20 06/03/18 09:20 06/03/18 05:15 06/03/18 09:20 06/03/18 09:20 Discharge - Discharge Clinical Impression: Sore throat, Nausea Condition: Stable Disposition: HOME, SELF-CARE Additional Instructions: SORE THROAT: Sore throats may be caused by viruses, bacteria, or fungi. Most are due to a virus, and must get better on their own. Bacterial sore throats, particularly those due to "strep," need treatment with antibiotics. If an antibiotic is prescribed, be sure to take the medication for a full 10 days. Failure to take the antibiotic can result in complications such as rheumatic fever. Sometimes, an injection of antibiotics is given instead of pills or liquid. This single "shot" is equal in effectiveness to the oral medication. To relieve symptoms, take acetaminophen for pain. Sip clear liquids frequently, or eat popsicles or ice chips. Anesthetic sprays or lozenges may help. Make sure the air in the room is not too dry. Avoid using decongestants or antihistamines. Call the doctor if there is no improvement in two days, or if you have difficulty breathing, increasing throat pain, high fever, rash, or frequent vomiting. Nausea or Vomiting, Nonspecific Vomiting (or nausea without vomiting) can be caused by many different problems. Of course, it can mean that something's wrong with the stomach, such as "stomach flu," ulcers, or inflammation. But it can also be a symptom of a problem that has nothing to do with the stomach or intestines. Vomiting is common with severe headaches, earaches, and tonsillitis. We see it with pneumonia or heart attacks. Drugs can cause nausea. Many abdominal problems cause vomiting; for example, gallstones, kidney stones, pancreatitis, and intestinal obstruction (blocked bowels). In most cases, curing the vomiting depends on fixing the problem that caused it. For temporary relief, we may use an anti-nausea medicine. For home use, we can prescribe suppositories, chewable pills, pills that dissolve in the mouth, or liquid anti-nausea drugs. If the vomiting seems to be caused by a problem in the stomach, acid-suppressing drugs may be prescribed as well. It's important to avoid dehydration. Sip clear liquids. Take increasing amounts of fluid over the first 24 hours. Then start small amounts of bland foods (such as dry toast, applesauce, mashed potato). Avoid aspirin, tobacco, and alcohol. Gradually resume your usual diet. If the vomiting worsens, if the problem that's making you vomit worsens, or if there's evidence of bleeding in the stomach (such as black, tarry stool, bloody or black vomit, or lightheadedness), you should return immediately. Call your doctor if you aren't improved in 24 to 36 hours. FOLLOW-UP CARE: If you have been referred to a physician for follow-up care, call the physician s office for an appointment as you were instructed or within the next two days. If you experience worsening or a significant change in your symptoms, notify the physician immediately or return to the Emergency Department at any time for re-evaluation. Your rapid strep today was negative. Please use the Zofran as needed for nausea. Drink plenty of fluids. The gonorrhea and Chlamydia testing is still pending. I will call you if it is abnormal. Prescriptions: Ondansetron [Zofran Odt 4 mg Tablet] 1 - 2 tab PO Q4H PRN #15 tab.rapdis PRN Reason: For Nausea/Vomiting Referrals: OPAL BRASWELL MD [Primary Care Provider] - Follow up as needed
[2018-06-03 09:19] LABS: CHLAM PCR NOT DETECTED (NOT DETECT); GON PCR NOT DETECTED (NOT DETECT)
[2018-06-03 09:21] VITALS: BP 132/76
== END 2018-06-03 09:25 | disposition home or self-care (01) ==
LOC: ER 05:02
DX: J02.9 Acute pharyngitis, unspecified (principal); R51 Headache; R11.0 Nausea; Z98.51 Tubal ligation status
CPT/HCPCS: 99283; 87070; 87880; 81025; 87491; 87591; S0119; J3490

== ENCOUNTER 2018-08-01 08:24 | Emergency (ER) | payer MEDICAID ==
[2018-08-01 09:27] LABS: APPEARANCE,URINE SLIGHTLY-CLOUDY; BILIRUBIN,URINE NEGATIVE (NEGATIVE); COLOR,URINE YELLOW; GLUCOSE, URINE NEGATIVE (NEGATIVE); KETONES,URINE NEGATIVE (NEGATIVE); LEUKOCYTE ESTERASE,URINE NEGATIVE (NEGATIVE); NITRITE,URINE NEGATIVE (NEGATIVE); PROTEIN,URINE NEGATIVE (NEGATIVE); URINE SPECIFIC GRAVITY 1.019; UROBILINOGEN,URINE NEGATIVE mg/dL (<2.0)
--- NOTE | 2018-08-01 09:31 | ER Document Report ---
HPI - HPI Time Seen by Provider: 08/01/18 09:09 Pain Level: 5 Notes: Patient is a 37-year-old female who presents with chief complaint of dysuria and low back pain over the last 2 weeks. Patient also reports sinus pressure and cough over the last 7-10 days. Patient denies any fevers but reports chills. Denies any nausea, vomiting or diarrhea. Patient reports that she recently had her Mirena removed the [facility]. She thinks she may have a urinary tract infection. - URINARY Urinary: REPORTS: Dysuria, Urgency, Frequency - REPRODUCTIVE Reproductive: DENIES: : Past Medical History - General Information source: Patient - Social History Smoking Status: Current Every Day Smoker Chew tobacco use (# tins/day): Yes Frequency of alcohol use: None Drug Abuse: None Family History: Reviewed & Not Pertinent, DM, Hypertension, Malignancy Patient has suicidal ideation: No Patient has homicidal ideation: No - Past Medical History Cardiac Medical History: Reports: Hx Hypertension - Not on-any medications Neurological Medical History: Reports: Hx Migraine Renal/ Medical History: Reports: Hx Ovarian Cysts. Denies: Hx Peritoneal Dialysis GI Medical History: Reports: Hx Colonoscopy Musculoskeletal Medical History: Reports Hx Musculoskeletal Deformity, Reports Hx Musculoskeletal Trauma Psychiatric Medical History: Reports: Hx Anxiety, Hx Depression - anxiety Past Surgical History: Reports: Hx Tubal Ligation. Denies: Hx Gynecologic Surgery - Immunizations Immunizations up to date: Yes Hx Diphtheria, Pertussis, Tetanus Vaccination: Yes Vertical Provider Document - CONSTITUTIONAL Notes: PHYSICAL EXAMINATION: GENERAL: Well-appearing, well-nourished and in no acute distress. HEAD: Atraumatic, normocephalic. EYES: Pupils equal round extraocular movements intact, conjunctiva are normal. ENT: Nares patent, tenderness to palpation over maxillary and frontal sinuses on the right side. NECK: Normal range of motion LUNGS: No respiratory distress, lung sounds clear to auscultation bilaterally. Musculoskeletal: Normal range of motion, no CVA tenderness. NEUROLOGICAL: Normal speech, normal gait. PSYCH: Normal mood, normal affect. SKIN: Warm, Dry, normal turgor, no rashes or lesions noted. - INFECTION CONTROL TRAVEL OUTSIDE OF THE [place] IN LAST 30 DAYS: No Course - Re-evaluation Re-evalutation: Urinalysis negative for any signs of infection. Will place patient on a 3-day course of antibiotics while pending culture. Patient will also be treated with both Flonase and prednisone for her upper respiratory symptoms and sinus pain. - Vital Signs Vital signs: Temp Pulse Resp BP Pulse Ox 98.2 F 79 16 118/67 98 08/01/18 08:27 08/01/18 08:27 08/01/18 08:27 08/01/18 08:27 08/01/18 08:27 Discharge - Discharge Clinical Impression: Dysuria, Sinus pain Condition: Stable Disposition: HOME, SELF-CARE Additional Instructions: And please see on a short course of antibiotics for what we cystitis. This is the sensation of burning or pain when you be accompanied by the low back pain. Your urine did not show any signs of infection however standard of care is to treat you for 3 days while pending a culture. I am also placing you on Flonase which is a nasal steroid as well as prednisone. Take all medications as prescribed. Drink plenty of fluids. Take either acetaminophen or ibuprofen for any pain. Prescriptions: Cephalexin [Cephalexin 500 MG Tablet] 1 tab PO QID #12 tablet Fluticasone Propionate [Flonase Nasal [place] 50 Mcg/[place] 16 gm] 2 sprays NASL Q12 #1 inhaler Prednisone [Deltasone 20 mg Tablet] 2 tab PO DAILY 5 Days #10 tablet Forms: Return to Work Referrals: OPAL BRASWELL MD [Primary Care Provider] - Follow up as needed
[2018-08-01 10:05] VITALS: BP 129/85
== END 2018-08-01 10:05 | disposition home or self-care (01) ==
LOC: ER 08:24
DX: R30.0 Dysuria (principal); M54.5 Low back pain; F17.200 Nicotine dependence, unspecified, uncomplicated; Z98.51 Tubal ligation status
CPT/HCPCS: 81001; 87086; 99283

== ENCOUNTER 2018-08-26 12:20 | Emergency (ER) | payer MEDICAID ==
--- NOTE | 2018-08-26 12:44 | ER Document Report ---
ED Psych Disorder / Suicide - General Mode of Arrival: Ambulatory Information source: Patient TRAVEL OUTSIDE OF THE [place] IN LAST 30 DAYS: No <AGUSTINA GILMORE - Last Filed: 08/26/18 12:39> <KATIE RENTERIA - Last Filed: 08/26/18 16:16> - General Chief Complaint: Suicidal Ideation Stated Complaint: DEPRESSION Time Seen by Provider: 08/26/18 12:31 Notes: 37-year-old female who presents to the emergency department today with compla ints of suicidal ideation. Patient states she has been depressed "for 5 months hardcore" and has felt suicidal for the last 2-3 weeks. When asked if she has a plan, patient states "I would walk to a park with water" and then states "I do not need a plan I am a simple person". Patient states she is seen at [facility] and was prescribed Klonopin and Vortioxetine but she does not like the idea of being on benzodiazepines as she does not feel as if they are helping. (AGUSTINA GILMORE) - Related Data Allergies/Adverse Reactions: promethazine [From Phenergan] Allergy (Verified 08/26/18 12:31) metoclopramide [From Reglan] Adverse Reaction (Verified 08/01/18 08:25) Past Medical History - General Information source: Patient - Social History Smoking Status: Never Smoker Cigarette use (# per day): No Chew tobacco use (# tins/day): Yes Lives with: Family Family History: Reviewed & Not Pertinent, DM, Hypertension, Malignancy - Past Medical History Cardiac Medical History: Reports: Hx Hypertension - Not on-any medications Neurological Medical History: Reports: Hx Migraine Renal/ Medical History: Reports: Hx Ovarian Cysts GI Medical History: Reports: Hx Colonoscopy Musculoskeletal Medical History: Reports Hx Musculoskeletal Deformity, Reports Hx Musculoskeletal Trauma Psychiatric Medical History: Reports: Hx Anxiety, Hx Depression - Immunizations Immunizations up to date: Yes Hx Diphtheria, Pertussis, Tetanus Vaccination: Yes <AGUSTINA GILMORE - Last Filed: 08/26/18 12:39> Review of Systems - Review of Systems Constitutional: No symptoms reported EENT: No symptoms reported Cardiovascular: No symptoms reported Respiratory: No symptoms reported Gastrointestinal: No symptoms reported Genitourinary: No symptoms reported Female Genitourinary: No symptoms reported Musculoskeletal: No symptoms reported Skin: No symptoms reported Hematologic/Lymphatic: No symptoms reported Neurological/Psychological: See HPI, Depression, Suicidal ideation -: Yes All other systems reviewed and negative <AGUSTINA GILMORE - Last Filed: 08/26/18 12:39> Physical Exam <AGUSTINA GILMORE - Last Filed: 08/26/18 12:39> - Vital signs Vitals: Temp Pulse Resp BP Pulse Ox 98.2 F 86 16 117/83 97 08/26/18 12:49 08/26/18 12:49 08/26/18 12:49 08/26/18 12:49 08/26/18 12:49 - Notes Notes: Physical Exam: General: Alert. HEENT: Normocephalic. Atraumatic. PERRL. Extraocular movements intact. Oropharynx clear. Neck: Supple. Non-tender. Respiratory: No respiratory distress. Clear and equal breath sounds bilaterally. Cardiovascular: Regular rate and rhythm. Abdominal: Normal Inspection. Non-tender. No distension. Normal Bowel Sounds. Back: Non-tender. No deformity or step off. Extremities: Moves all four extremities. Upper extremities: Normal inspection. Normal ROM. Lower extremities: Normal inspection. No edema. Normal ROM. Neurological: Normal cognition. AAOx4. Normal speech. Psychological: Depressed. Tearful. Denies any suicidal plan other than "walking to a park with water" then stating "I am a simple person I don't need a plan". Skin: Warm. Dry. Normal color. (AGUSTINA GILMORE) Course - Laboratory Result Diagrams: 08/26/18 13:37 08/26/18 13:37 - EKG Interpretation by Dc EKG shows normal: Sinus rhythm, [place], Intervals, QRS Complexes, ST-T Waves Rate: Normal - 92 Rhythm: NSR - Transfer of Care Care transferred to following provider: Dr. Travis <KATIE RENTERIA - Last Filed: 08/26/18 16:16> - Re-evaluation Re-evalutation: 08/26/18 13:53 The patient was seen by Blu Panda who agrees that IVC is not necessary at this time. Her recommendations were to treat the patient with Celexa 20 mg daily for the depression, and BuSpar 5 mg twice daily for the anxiety. She should stop the Klonopin. She felt that the patient may best benefit from therapy and suggested either [facility], [facility], [facility], or [facility](integrated family services). 08/26/18 14:37 When tried to talk with the patient about what Blu Panda had recommended, the patient stated you are not taking me seriously", and said she did not want us to send her home. She then began to allude to harming herself if we did not do something. She further stated that she had been on all those medications in the past, she did not tell me that before and that they did not work. At this point, I decided that involuntary commitment was the only safe approach due to her anger, hostility, unwillingness to even discuss her management and her dishonesty. On the initial evaluation she had gone into a long diatribe about Klonopin and dependency and how she did not want to be on those medicines and that all "your doctors"are willing to give her. I reviewed the records and found that in October of this year she was seen for possible benzodiazepine/Klonopin withdrawal, and was requesting detox to get off of medication. At that time she was prescribed Effexor and BuSpar. She obviously went right back to her doctors for her Klonopin because she has been receiving Klonopin on a monthly basis ever since, including filling a prescription 2 days ago. The psychiatric note that was put in her chart on that visit is almost word for word for what she was telling me about her concerns with Klonopin on this visit. (KATIE RENTERIA) - Vital Signs Vital signs: Temp Pulse Resp BP Pulse Ox 98.2 F 86 16 117/83 97 08/26/18 12:49 08/26/18 12:49 08/26/18 12:49 08/26/18 12:49 08/26/18 12:49 - Laboratory Laboratory results interpreted by me: 08/26/18 08/26/18 08/26/18 13:37 13:37 14:35 WBC 3.8 L Carbon Dioxide 31 H Urine Glucose (UA) >=500 H Urine Blood SMALL H Salicylates < 1.0 L Acetaminophen < 10 L - Transfer of Care Notes: 08/26/18 16:15 Patient is on IVC papers at this time, the recommended medications were ordered for this evening. She should be watched for benzodiazepine withdrawal. (KATIE RENTERIA) Discharge <AGUSTINA GILMORE - Last Filed: 08/26/18 12:39> <KATIE RENTERIA - Last Filed: 08/26/18 16:16> - Discharge Clinical Impression: Passive suicidal ideations Depression Qualifiers: Depression Type: unspecified Qualified Code(s): F32.9 - Major depressive disorder, single episode, unspecified Condition: Stable Disposition: PSYCH HOSP/UNIT Referrals: OPAL BRASWELL MD [Primary Care Provider] - Follow up as needed Scribe Attestation: 08/26/18 13:53 I personally performed the services described in the documentation, reviewed and edited the documentation which was dictated to the scribe in my presence, and it accurately records my words and actions. (KATIE RENTERIA) Scribe Documentation - Scribe Written by Scribe:: Rodney Wallace, 08/26/2018 1244 acting as scribe for :: Harinder <AGUSTINA GILMORE - Last Filed: 08/26/18 12:39>
[2018-08-26 13:54] LABS: ABSOLUTE LYMPHOCYTES (AUTO) 0.8 10^3/uL (0.5-4.7); ABSOLUTE MONOCYTES (AUTO) 0.3 10^3/uL (0.1-1.4); ABSOLUTE NEUT (AUTO) 2.7 10^3/uL (1.7-8.2); BASOPHILS % (AUTO) 0.9 % (0-2); HEMATOCRIT 38.4 % (36.0-47.0); HEMOGLOBIN 13.1 g/dL (12.0-15.5); MEAN CORPUSCULAR HEMOGLOBIN 30.2 pg (27.0-33.4); MEAN CORPUSCULAR HGB CONC 34.1 g/dL (32.0-36.0); MEAN CORPUSCULAR VOLUME 88 fl (80-97); MONOCYTES % (AUTO) 7.4 % (3-13); PLATELET COUNT 298 10^3/uL (150-450); RED BLOOD COUNT 4.35 10^6/uL (3.72-5.28); RED CELL DISTRIBUTION WIDTH 13.3 % (11.5-14.0); SEGMENTED NEUTROPHILS % (AUTO) 70.7 % (42-78); TOTAL CELLS COUNTED % (AUTO) 100 %; WHITE BLOOD COUNT 3.8 10^3/uL (4.0-10.5)
[2018-08-26 14:08] LABS: ACETAMINOPHEN < 10 ug/mL (10-30); ALANINE AMINOTRANSFERASE 32 U/L (9-52); ALBUMIN 3.9 g/dL (3.5-5.0); ALCOHOL < 10 mg/dL (NONE DETECTED); ALKALINE PHOSPHATASE 53 U/L (38-126); ANION GAP 5 (5-19); ASPARTATE AMINO TRANSFERASE 21 U/L (14-36); BILIRUBIN,DIRECT 0.1 mg/dL (0.0-0.4); BILIRUBIN,TOTAL 0.8 mg/dL (0.2-1.3); BLOOD UREA NITROGEN 11 mg/dL (7-20); CALCIUM 9.3 mg/dL (8.4-10.2); CARBON DIOXIDE 31 mmol/L (22-30); CHLORIDE 105 mmol/L (98-107); GLUCOSE 97 mg/dL (75-110); SALICYLATE < 1.0 mg/dL (2.0-20.0); SODIUM 141.4 mmol/L (137-145)
[2018-08-26 14:50] LABS: APPEARANCE,URINE CLEAR; BILIRUBIN,URINE NEGATIVE (NEGATIVE); COLOR,URINE YELLOW; GLUCOSE, URINE >=500 mg/dL (NEGATIVE); KETONES,URINE NEGATIVE (NEGATIVE); LEUKOCYTE ESTERASE,URINE NEGATIVE (NEGATIVE); NITRITE,URINE NEGATIVE (NEGATIVE); PROTEIN,URINE NEGATIVE (NEGATIVE); URINE SPECIFIC GRAVITY 1.027; UROBILINOGEN,URINE NEGATIVE mg/dL (<2.0)
[2018-08-26 15:03] LABS: URINE AMPHETAMINES SCREEN NEGATIVE; URINE BARBITURATES SCREEN NEGATIVE; URINE BENZODIAZEPINES SCREEN NEGATIVE; URINE COCAINE SCREEN NEGATIVE; URINE MARIJUANA (THC) SCREEN NEGATIVE; URINE METHADONE SCREEN NEGATIVE; URINE PHENCYCLIDINE SCREEN NEGATIVE
--- NOTE | 2018-08-26 15:39 | EKG REPORT ---
SEVERITY:- NORMAL ECG - SINUS RHYTHM : Confirmed by: Delroy Jefferson 26-Aug-2018 15:37:21
[2018-08-26] MEDS: CITALOPRAM HYDROBROMIDE 20 MG TABLET PO SCH (16:29)
[2018-08-26] MEDS: BUSPIRONE HCL 10 MG TABLET PO SCH ×2 (16:29→17:18)
[2018-08-26] MEDS ORDERED: ACETAMINOPHEN 325 MG TABLET PO ONE (23:57)
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
[2018-08-27] MEDS: CITALOPRAM HYDROBROMIDE 20 MG TABLET PO SCH (10:36)
[2018-08-27 10:58] VITALS: BP 97/77
== END 2018-08-27 10:58 | disposition home or self-care (01) ==
LOC: ER 12:20
DX: F32.9 Major depressive disorder, single episode, unspecified (principal); F19.10 Other psychoactive substance abuse, uncomplicated; I10 Essential (primary) hypertension
CPT/HCPCS: 93005; 99285; 36415; 80307 ×4; 84703; 85025; 80053; 81001; 93010; J3490 ×4

== ENCOUNTER 2018-09-03 11:23 | Emergency (ER) | payer MEDICAID, OTHER ==
--- NOTE | 2018-09-03 12:12 | ER Document Report ---
ED Medical Screen (RME) - General Chief Complaint: Nausea/Vomiting Stated Complaint: BODY PAIN,NAUSEA,VOMITING Time Seen by Provider: 09/03/18 12:05 Mode of Arrival: Ambulatory Information source: Patient Notes: 37-year-old female presents with "Klonopin withdrawal". Patient states she took her last dose of Klonopin on August 26 because she no longer wants to take it. Patient was evaluated by psychology recently on 08/26 and per the note patient became upset when learned that she was not going to be admitted as an inpatient. Patient current complaining of skin burning, agitation, chest discomfort and diarrhea. I have greeted and performed a rapid initial assessment of this patient. A comprehensive ED assessment and evaluation of the patient, analysis of test results and completion of medical decision making process we will be contacted by additional ED providers. PHYSICAL EXAMINATION: Vital signs reviewed-hypertensive GENERAL: Well-appearing, well-nourished and in no acute distress. LUNGS: No respiratory distress Musculoskeletal: Normal range of motion NEUROLOGICAL: Slowed speech PSYCH: Flat affect SKIN: Warm, Dry, normal turgor, no rashes or lesions noted. TRAVEL OUTSIDE OF THE [place] IN LAST 30 DAYS: No - HPI Onset: Other Quality of pain: Burning Associated Symptoms: Diarrhea, Dizzy/lightheaded, Weakness Exacerbated by: Denies Relieved by: Denies Similar symptoms previously: Yes Recently seen / treated by doctor: Yes - Related Data Smoking: Cigarettes Frequency of alcohol use: None Drug Abuse: Prescription drugs Allergies/Adverse Reactions: promethazine [From Phenergan] Allergy (Verified 09/03/18 11:24) metoclopramide [From Reglan] Adverse Reaction (Verified 09/03/18 11:24) Past Medical History - Social History Chew tobacco use (# tins/day): No Frequency of alcohol use: None Drug Abuse: None - Past Medical History Cardiac Medical History: Reports: Hx Hypertension - Not on-any medications Neurological Medical History: Reports: Hx Migraine Renal/ Medical History: Reports: Hx Ovarian Cysts. Denies: Hx Peritoneal Dialysis GI Medical History: Reports: Hx Colonoscopy Musculoskeltal Medical History: Reports Hx Musculoskeletal Deformity, Reports Hx Musculoskeletal Trauma Psychiatric Medical History: Reports: Hx Anxiety, Hx Depression Past Surgical History: Reports: Hx Tubal Ligation - Immunizations Immunizations up to date: Yes Hx Diphtheria, Pertussis, Tetanus Vaccination: Yes Physical Exam - Vital signs Vitals: Temp Pulse Resp BP Pulse Ox 97.7 F 72 18 146/91 H 97 09/03/18 11:42 09/03/18 11:42 09/03/18 11:42 09/03/18 11:42 09/03/18 11:42 Course - Vital Signs Vital signs: Temp Pulse Resp BP Pulse Ox 97.7 F 72 18 146/91 H 97 09/03/18 11:42 09/03/18 11:42 09/03/18 11:42 09/03/18 11:42 09/03/18 11:42 Doctor's Discharge - Discharge Referrals: OPAL BRASWELL MD [Primary Care Provider] - Follow up as needed
[2018-09-03 12:42] LABS: APPEARANCE,URINE CLEAR; BILIRUBIN,URINE NEGATIVE (NEGATIVE); COLOR,URINE STRAW; GLUCOSE, URINE NEGATIVE (NEGATIVE); KETONES,URINE 20 mg/dL (NEGATIVE); LEUKOCYTE ESTERASE,URINE NEGATIVE (NEGATIVE); NITRITE,URINE NEGATIVE (NEGATIVE); PROTEIN,URINE NEGATIVE (NEGATIVE); URINE SPECIFIC GRAVITY 1.008; UROBILINOGEN,URINE NEGATIVE mg/dL (<2.0)
[2018-09-03] MEDS ORDERED: NORMAL SALINE 1000 ML 1,000 ML IV ONE (16:01)
[2018-09-03] MEDS ORDERED: CLONAZEPAM 1 MG TABLET PO ONE (16:01)
--- NOTE | 2018-09-03 16:11 | ER Document Report ---
ED General - General Chief Complaint: Nausea/Vomiting Stated Complaint: BODY PAIN,NAUSEA,VOMITING Time Seen by Provider: 09/03/18 12:05 Mode of Arrival: Ambulatory Notes: 37-year-old female presents with "Klonopin withdrawal". Patient states she took her last dose of Klonopin on August 26 because she no longer wants to take it. Patient was told by family members that is is okay to abruptly discontinue Klonopin. Patient was evaluated by psychology recently on 08/26. Patient current complaining of dizziness, skin burning, agitation, chest discomfort and diarrhea. She denies tremors, hallucinations, rapid heart rate, diaphoresis, perceptual disturbances, psychosis. TRAVEL OUTSIDE OF THE [place] IN LAST 30 DAYS: No - Related Data Allergies/Adverse Reactions: promethazine [From Phenergan] Allergy (Verified 09/03/18 15:07) metoclopramide [From Reglan] Adverse Reaction (Verified 09/03/18 15:07) Past Medical History - General Information source: Patient - Social History Smoking Status: Former Smoker Chew tobacco use (# tins/day): No Frequency of alcohol use: None Drug Abuse: None Family History: Reviewed & Not Pertinent, DM, Hypertension, Malignancy Patient has suicidal ideation: No Patient has homicidal ideation: No - Past Medical History Cardiac Medical History: Reports: Hx Hypertension - Not on-any medications Neurological Medical History: Reports: Hx Migraine Renal/ Medical History: Reports: Hx Ovarian Cysts. Denies: Hx Peritoneal Dialysis GI Medical History: Reports: Hx Colonoscopy Musculoskeletal Medical History: Reports Hx Musculoskeletal Deformity, Reports Hx Musculoskeletal Trauma Psychiatric Medical History: Reports: Hx Anxiety, Hx Depression Past Surgical History: Reports: Hx Tubal Ligation - Immunizations Immunizations up to date: Yes Hx Diphtheria, Pertussis, Tetanus Vaccination: Yes Review of Systems - Review of Systems Constitutional: See HPI EENT: See HPI Cardiovascular: See HPI Respiratory: See HPI Gastrointestinal: See HPI Genitourinary: No symptoms reported Female Genitourinary: No symptoms reported Musculoskeletal: No symptoms reported Skin: See HPI Hematologic/Lymphatic: No symptoms reported Neurological/Psychological: No symptoms reported Physical Exam - Vital signs Vitals: Temp Pulse Resp BP Pulse Ox 97.7 F 72 18 146/91 H 97 09/03/18 11:42 09/03/18 11:42 09/03/18 11:42 09/03/18 11:42 09/03/18 11:42 - Notes Notes: Reviewed vital signs and nursing note as charted by RN. CONSTITUTIONAL: Well-appearing, well-nourished, acting appropriately for age HEAD: Normocephalic, atraumatic, no swelling EYES: PERRL, Conjunctivae clear, no drainage, EOMI, no scleral icterus ENT: External ears without lesions, External auditory canal is patent, TMs without erythema, landmarks clear and well visualized, no rhinorrhea, Pharynx without erythema or lesions, no tonsillar hypertrophy, airway patent, mucous membranes pink and moist NECK: Supple, no cervical lymphadenopathy, no masses CARD: Regular rate and rhythm, no murmurs, no rubs, no gallops, capillary refill < 2 seconds, symmetric pulses RESP: The lungs are clear to auscultation bilaterally, no wheezing, no rales, no rhonchi. Respiratory rate and effort are normal, normal chest excursion. No respiratory distress, no retractions, no stridor, no nasal flaring, no accessory muscle use. ABD/GI: Normal bowel sounds, non-distended, soft, non-tender, no rebound, no guarding, no palpable organomegaly EXT: Normal ROM in all joints, non-tender to palpation, no effusions, no edema SKIN: Normal color for age and race, warm, dry, good turgor, no acute lesions noted NEURO: No facial asymmetry, moves all extremities equally, motor and sensory function intact Course - Re-evaluation Re-evalutation: 09/03/18 17:42 37 female presents to the emergency department for abrupt stoppage of taking her Klonopin and now having complaints of agitation, her skin crawling, and nausea. Urinalysis done shows no evidence of dehydration. Patient does not have any tremors no evidence of any seizures, no evidence of psychosis, delirium, or any other psychiatric emergency. Klonopin 1 mg p.o. 1 time given with strict follow-up with Dr. Braswell. Patient reports feeling much better after receiving the Klonopin and she can follow-up with Dr. Braswell in the morning. - Vital Signs Vital signs: Temp Pulse Resp BP Pulse Ox 97.7 F 72 18 146/91 H 97 09/03/18 11:42 09/03/18 11:42 09/03/18 11:42 09/03/18 11:42 09/03/18 11:42 - Laboratory Laboratory results interpreted by me: 09/03/18 12:13 Urine Ketones 20 H Discharge - Discharge Clinical Impression: Anxiety Condition: Good Disposition: HOME, SELF-CARE Instructions: Anxiety ([facility]) Additional Instructions: You are seen in the emergency department this afternoon for anxiety and not feeling well. It is most likely because he abruptly stopped taking her Klonopin. It is important to not stop it cold turkey because it is in the class of drugs called a benzodiazepine which you can withdraw from. We gave you dose of Klonopin and you reported feeling better. Please follow-up with Dr. Braswell tomorrow morning to discuss medication management. Referrals: OPAL BRASWELL MD [Primary Care Provider] - Follow up as needed
[2018-09-03 18:05] VITALS: BP 137/88
== END 2018-09-03 18:06 | disposition home or self-care (01) ==
LOC: ER 11:23
DX: F41.9 Anxiety disorder, unspecified (principal); R42 Dizziness and giddiness; R45.1 Restlessness and agitation; R07.9 Chest pain, unspecified; R19.7 Diarrhea, unspecified; Z87.891 Personal history of nicotine dependence; I10 Essential (primary) hypertension
CPT/HCPCS: 99284; 81025; 81001; J3490

== ENCOUNTER 2018-10-05 10:59 | Emergency (ER) | payer SELFPAY ==
[2018-10-05] MEDS ORDERED: ONDANSETRON HCL INJ/PF 4 MG/2 ML SDV IV ONE (11:27)
[2018-10-05] MEDS ORDERED: KETOROLAC TROMETHAMINE INJ/PF 30 MG/1 ML SDV IV ONE (11:27)
[2018-10-05] MEDS ORDERED: ACETAMINOPHEN 325 MG TABLET PO ONE (11:28)
[2018-10-05] MEDS ORDERED: DIPHENHYDRAMINE HCL 25 MG CAPSULE PO ONE (11:28)
--- NOTE | 2018-10-05 12:01 | ER Document Report ---
ED General - General Chief Complaint: Probable Seizure Stated Complaint: HEADACHE Time Seen by Provider: 10/05/18 11:27 Primary Care Provider: OPAL BRASWELL MD [Primary Care Provider] - Follow up as needed TRAVEL OUTSIDE OF THE [place] IN LAST 30 DAYS: No - HPI Patient complains to provider of: Headache seizure Notes: Patient coming in stating that she had a seizure earlier this morning. Patient states she is on the medications for her seizures but has recently decreased the amount of Klonopin that she is taking. Patient states she has not taking any Klonopin in quite some time. Patient otherwise right now complains of a frontal headache. Denies any head trauma. Patient denies any nausea or vomiting denies any fevers or chills. Patient looks to be nontoxic upon my evaluation. Moving all 4 extremities with a steady gait patient denies taking any medications at home for her headache. - Related Data Allergies/Adverse Reactions: promethazine [From Phenergan] Allergy (Verified 10/05/18 11:09) metoclopramide [From Reglan] Adverse Reaction (Verified 10/05/18 11:09) Past Medical History - Social History Smoking Status: Never Smoker Chew tobacco use (# tins/day): Yes Family History: Reviewed & Not Pertinent, DM, Hypertension, Malignancy Patient has suicidal ideation: No Patient has homicidal ideation: No - Past Medical History Cardiac Medical History: Reports: Hx Hypertension - Not on-any medications Neurological Medical History: Reports: Hx Migraine, Hx Seizures Renal/ Medical History: Reports: Hx Ovarian Cysts. Denies: Hx Peritoneal Dialysis GI Medical History: Reports: Hx Colonoscopy Musculoskeletal Medical History: Reports Hx Musculoskeletal Deformity, Reports Hx Musculoskeletal Trauma Psychiatric Medical History: Reports: Hx Anxiety, Hx Depression Past Surgical History: Reports: Hx Tubal Ligation - Immunizations Immunizations up to date: Yes Hx Diphtheria, Pertussis, Tetanus Vaccination: Yes Review of Systems - Review of Systems Constitutional: No symptoms reported EENT: No symptoms reported Cardiovascular: No symptoms reported Respiratory: No symptoms reported Gastrointestinal: No symptoms reported Genitourinary: No symptoms reported Female Genitourinary: No symptoms reported Musculoskeletal: No symptoms reported Skin: No symptoms reported Hematologic/Lymphatic: No symptoms reported Neurological/Psychological: Headaches -: Yes All other systems reviewed and negative Physical Exam - Vital signs Interpretation: Normal - General General appearance: Appears well, Alert - HEENT Head: Normocephalic, Atraumatic Eyes: Normal Conjunctiva: Normal Cornea: Normal Extraocular movements intact: Yes Eyelashes: Normal Pupils: PERRL Anterior chamber: Normal Neck: Normal - Respiratory Respiratory status: No respiratory distress Chest status: Nontender Breath sounds: Normal Chest palpation: Normal - Cardiovascular Rhythm: Regular Heart sounds: Normal auscultation Murmur: No - Abdominal Inspection: Normal Distension: No distension Bowel sounds: Normal Tenderness: Nontender Organomegaly: No organomegaly - Back Back: Normal, Nontender - Extremities General upper extremity: Normal inspection, Nontender, Normal color, Normal ROM, Normal temperature General lower extremity: Normal inspection, Nontender, Normal color, Normal ROM, Normal temperature, Normal weight bearing. No: Jose's sign - Neurological Neuro grossly intact: Yes Cognition: Normal Orientation: AAOx4 [place] Coma Scale Eye Opening: Spontaneous Sudhir Coma Scale Verbal: Oriented Sudhir Coma Scale Motor: Obeys Commands [place] Coma Scale Total: 15 Speech: Normal Motor strength normal: LUE, RUE, LLE, RLE Sensory: Normal - Psychological Associated symptoms: Normal affect, Normal mood - Skin Skin Temperature: Warm Skin Moisture: Dry Skin Color: Normal Course - Re-evaluation Re-evalutation: 10/05/18 12:01 No signs of acute benzodiazepine withdrawal at this time. Patient recently filled a prescription for clonazepam 0.5 mg tablets 60 on September 04, 2018. Patient looks to be on chronic clonazepam also receiving a prescription for 75 tablets August 24, 2018. Patient will have basic chemistry panel performed otherwise neurologically intact 10/05/18 12:43 The patient presents with headache without signs of [employer] bleed, stroke, infection, or other serious etiology. The patient is neurologically intact. Given the extremely low risk of these diagnoses further testing and evaluation for these possibilities does not appear to be indicated at this time. The patient has been instructed to return if the symptoms worsen or change in any way.. - Laboratory Result Diagrams: 10/05/18 11:40 Laboratory results interpreted by me: 10/05/18 11:37 Urine Ketones 20 H Urine Blood MODERATE H Discharge - Discharge Clinical Impression: Headache Qualifiers: Headache type: unspecified Headache chronicity pattern: unspecified pattern Intractability: not intractable Qualified Code(s): R51 - Headache Condition: Good Disposition: HOME, SELF-CARE Instructions: Headache ([facility]) Additional Instructions: Laboratory studies today and physical examination not revealing critical pathology. I highly recommend taking medications as prescribed for your headache please follow-up with your primary care physician tomorrow for further evaluation return to ER symptoms worsen. Prescriptions: Ketorolac Tromethamine [Toradol 10 mg Tablet] 10 mg PO Q8HP PRN #10 tablet PRN Reason: Referrals: OPAL BRASWELL MD [Primary Care Provider] - Follow up tomorrow
[2018-10-05 12:02] LABS: APPEARANCE,URINE CLEAR; BILIRUBIN,URINE NEGATIVE (NEGATIVE); COLOR,URINE STRAW; GLUCOSE, URINE NEGATIVE (NEGATIVE); KETONES,URINE 20 mg/dL (NEGATIVE); LEUKOCYTE ESTERASE,URINE NEGATIVE (NEGATIVE); NITRITE,URINE NEGATIVE (NEGATIVE); PROTEIN,URINE NEGATIVE (NEGATIVE); URINE SPECIFIC GRAVITY 1.006; UROBILINOGEN,URINE NEGATIVE mg/dL (<2.0)
[2018-10-05 12:19] LABS: URINE AMPHETAMINES SCREEN NEGATIVE; URINE BARBITURATES SCREEN NEGATIVE; URINE BENZODIAZEPINES SCREEN NEGATIVE; URINE COCAINE SCREEN NEGATIVE; URINE MARIJUANA (THC) SCREEN NEGATIVE; URINE METHADONE SCREEN NEGATIVE; URINE PHENCYCLIDINE SCREEN NEGATIVE
[2018-10-05 12:21] LABS: ANION GAP 12 (5-19); BLOOD UREA NITROGEN 7 mg/dL (7-20); CALCIUM 9.5 mg/dL (8.4-10.2); CARBON DIOXIDE 27 mmol/L (22-30); CHLORIDE 101 mmol/L (98-107); GLUCOSE 86 mg/dL (75-110); POTASSIUM 4.2 mmol/L (3.6-5.0); SODIUM 139.7 mmol/L (137-145)
[2018-10-05 12:44] VITALS: BP 149/73
== END 2018-10-05 12:44 | disposition home or self-care (01) ==
LOC: ER 10:59
DX: R51 Headache (principal); I10 Essential (primary) hypertension; Z98.51 Tubal ligation status
CPT/HCPCS: 99284; 96374; 96375; 36415; 81025; 80048; 81001; 80307; J1885; J2405

== ENCOUNTER 2018-11-29 18:52 | Emergency (ER) | payer SELFPAY ==
--- NOTE | 2018-11-29 19:13 | ER Document Report ---
ED Medical Screen (RME) - General Chief Complaint: Vaginal Discharge Stated Complaint: POSSIBLE STI/UTI Time Seen by Provider: 11/29/18 19:01 Primary Care Provider: OPAL BRASWELL MD [Primary Care Provider] - Follow up as needed Notes: 38-year-old female patient comes emergency room with 2 separate unrelated complaints. She reports she has had dizziness for 3-4 days, made worse by standing up quickly or looking about quickly. She also complains of side and pelvic pain and vaginal discharge. She is concerned about catching something from her spouse. I have greeted and performed a rapid initial assessment of this patient. A comprehensive ED assessment and evaluation of the patient, analysis of test results and completion of the medical decision making process will be conducted by additional ED providers. TRAVEL OUTSIDE OF THE [place] IN LAST 30 DAYS: No - Related Data Allergies/Adverse Reactions: promethazine [From Phenergan] Allergy (Verified 11/29/18 18:52) metoclopramide [From Reglan] Adverse Reaction (Verified 11/29/18 18:52) Past Medical History - Social History Chew tobacco use (# tins/day): No Frequency of alcohol use: None Drug Abuse: None - Past Medical History Cardiac Medical History: Reports: Hx Hypertension - Not on-any medications Neurological Medical History: Reports: Hx Migraine, Hx Seizures Renal/ Medical History: Reports: Hx Ovarian Cysts. Denies: Hx Peritoneal Dialysis GI Medical History: Reports: Hx Colonoscopy Musculoskeltal Medical History: Reports Hx Musculoskeletal Deformity, Reports Hx Musculoskeletal Trauma Psychiatric Medical History: Reports: Hx Anxiety, Hx Depression Past Surgical History: Reports: Hx Tubal Ligation - Immunizations Immunizations up to date: Yes Hx Diphtheria, Pertussis, Tetanus Vaccination: Yes Physical Exam - Vital signs Vitals: Temp Pulse Resp BP Pulse Ox 98.9 F 84 16 158/92 H 99 11/29/18 18:56 11/29/18 18:56 11/29/18 18:56 11/29/18 18:56 11/29/18 18:56 Course - Vital Signs Vital signs: Temp Pulse Resp BP Pulse Ox 98.9 F 84 16 158/92 H 99 11/29/18 18:56 11/29/18 18:56 11/29/18 18:56 11/29/18 18:56 11/29/18 18:56 Doctor's Discharge - Discharge Referrals: OPAL BRASWELL MD [Primary Care Provider] - Follow up as needed
[2018-11-29] MEDS ORDERED: MECLIZINE HCL 25 MG TABLET PO ONE (19:15)
[2018-11-29 20:04] LABS: APPEARANCE,URINE CLEAR; BILIRUBIN,URINE NEGATIVE (NEGATIVE); COLOR,URINE COLORLESS; GLUCOSE, URINE NEGATIVE (NEGATIVE); KETONES,URINE NEGATIVE (NEGATIVE); LEUKOCYTE ESTERASE,URINE NEGATIVE (NEGATIVE); NITRITE,URINE NEGATIVE (NEGATIVE); PROTEIN,URINE NEGATIVE (NEGATIVE); URINE SPECIFIC GRAVITY 1.004; UROBILINOGEN,URINE NEGATIVE mg/dL (<2.0)
[2018-11-29 21:31] LABS: CHLAM PCR NOT DETECTED (NOT DETECT); GON PCR NOT DETECTED (NOT DETECT)
[2018-11-29 22:32] LABS: RBCS (WET MOUNT) NO RBCS SEEN; T.VAGINALIS (WET MOUNT) NO TRICHOMONAS SEEN; WBCS (WET MOUNT) 1+ WBCS SEEN; YEAST (WET MOUNT) NO YEAST SEEN
--- NOTE | 2018-11-29 23:02 | ER Document Report ---
ED General - General Chief Complaint: Vaginal Discharge Stated Complaint: POSSIBLE STI/UTI Time Seen by Provider: 11/29/18 19:01 Primary Care Provider: OPAL BRASWELL MD [Primary Care Provider] - Follow up as needed Notes: Patient is a 38-year-old female with chronic anxiety, presents complaining of chronic dizziness as well as vaginal discharge. The patient reports that the dizziness has been ongoing for at least 4-5 months ever since she began to bring down her clonazepam. States that she has seen her primary care doctor, neurology, without any identification or resolution of her symptoms. States that it is effectively all day every day whenever she is standing. Also occurs with positional changes. Denies any weakness, numbness, falls or loss of balance. States she became concerned yesterday because she forgot how to get home and at this is never happened before but she has not had any recurrent confusion today. Denies any headache. Symptoms relatively unchanged since onset. States that nothing seems to improve or worsen her symptoms. She also reports that she has had 3-4 days of whitish vaginal discharge. States this started gradually, mild to moderate in nature, has been constant since onset. States she is concerned she may have a sexually transmitted infection. Denies history of the same in the past. TRAVEL OUTSIDE OF THE [place] IN LAST 30 DAYS: No - Related Data Allergies/Adverse Reactions: promethazine [From Phenergan] Allergy (Verified 11/29/18 18:52) metoclopramide [From Reglan] Adverse Reaction (Verified 11/29/18 18:52) Past Medical History - General Information source: Patient - Social History Smoking Status: Never Smoker Chew tobacco use (# tins/day): No Frequency of alcohol use: None Drug Abuse: None Lives with: Spouse/Significant other Family History: Reviewed & Not Pertinent, DM, Hypertension, Malignancy Patient has suicidal ideation: No Patient has homicidal ideation: No - Past Medical History Cardiac Medical History: Reports: Hx Hypertension - Not on-any medications Neurological Medical History: Reports: Hx Migraine, Hx Seizures Renal/ Medical History: Reports: Hx Ovarian Cysts. Denies: Hx Peritoneal D ialysis GI Medical History: Reports: Hx Colonoscopy Musculoskeletal Medical History: Reports Hx Musculoskeletal Deformity, Reports Hx Musculoskeletal Trauma Psychiatric Medical History: Reports: Hx Anxiety, Hx Depression Past Surgical History: Reports: Hx Tubal Ligation - Immunizations Immunizations up to date: Yes Hx Diphtheria, Pertussis, Tetanus Vaccination: Yes Review of Systems - Review of Systems Notes: Constitutional: Negative for fever. HENT: Negative for sore throat. Eyes: Negative for visual changes. Cardiovascular: Negative for chest pain. Respiratory: Negative for shortness of breath. Gastrointestinal: Negative for abdominal pain, vomiting or diarrhea. Genitourinary: Negative for dysuria. Positive for vaginal discharge Musculoskeletal: Negative for back pain. Skin: Negative for rash. Neurological: Negative for headaches, weakness or numbness. Positive for dizziness 10 point ROS negative except as marked above and in HPI. Physical Exam - Vital signs Vitals: Temp Pulse Resp BP Pulse Ox 98.9 F 84 16 158/92 H 99 11/29/18 18:56 11/29/18 18:56 11/29/18 18:56 11/29/18 18:56 11/29/18 18:56 Interpretation: Hypertensive Notes: PHYSICAL EXAMINATION: GENERAL: Well-appearing, well-nourished and in no acute distress. HEAD: Atraumatic, normocephalic. EYES: Pupils equal round and reactive to light, extraocular movements intact, sclera anicteric, conjunctiva are normal. ENT: nares patent, oropharynx clear without exudates. Moist mucous membranes. NECK: Normal range of motion, supple without lymphadenopathy LUNGS: Breath sounds clear to auscultation bilaterally and equal. No wheezes rales or rhonchi. HEART: Regular rate and rhythm without murmurs ABDOMEN: Soft, nontender, normoactive bowel sounds. No guarding, no rebound. No masses appreciated. EXTREMITIES: Normal range of motion, no pitting or edema. No cyanosis. NEUROLOGICAL: Face symmetric. Tongue protrudes midline. Extraocular motions intact. Pupils are 2 mm and equally reactive. Normal speech, normal gait. 5 out of 5 strength in both the distal and proximal upper and lower extremities bilaterally. Sensation is grossly intact throughout. Finger to nose testing normal. Pronator drift normal. PSYCH: Normal mood, normal affect. SKIN: Warm, Dry, normal turgor, no rashes or lesions noted. Course - Re-evaluation Re-evalutation: 11/29/18 23:04 Patient presents with 2 distinct complaints. 1. Chronic dizziness: The patient has had chronic dizziness for the past 3-4 months. She has seen neurology, her primary care doctor, and has been evaluated on multiple occasions for the same. She states that she has been informed this is likely due to benzodiazepine withdrawal she has been tapering down off clonazepam and her symptoms do fit with this diagnosis. On exam she has no focal neurologic deficits. No nystagmus. Able to amply without difficulty. No headache, neck pain or altered mental status although reports he felt somewhat confused yesterday. I do not feel that the patient requires repeat neuroimaging, very low clinical suspicion for an acute stroke, MS, TIA or any alternative life threatening addition. I have advised her heavily to continue to follow with her primary care doctor regarding this issue and have asked her to consider consider complete this continuation of clonazepam. 2. Vaginal discharge: The patient reports 2-3 days of whitish, malodorous vaginal discharge. She states that she is concerned of the possibility of a sexual transmitted infection or a urinary tract infection. Pelvic exam is unremarkable. No cervical or vaginal lesions. Scant whitish vaginal discharge that appears physiologic. No cervical motion tenderness, adnexal tenderness, nothing to suggest pelvic inflammatory disease. No evidence of vaginal foreign body. Gonorrhea chlamydia wet mount all unremarkable. Urinalysis and urine test are negative. At this time will discharge with return precautions and follow-up recommendations. Verbal discharge instructions given a the bedside and opportunity for questions given. Medication warnings reviewed. Patient is in agreement with this plan and has verbalized understanding of return precautions and the need for primary care follow-up in the next 24-72 hours. - Vital Signs Vital signs: Temp Pulse Resp BP Pulse Ox 98.9 F 84 16 158/92 H 99 11/29/18 18:56 11/29/18 18:56 11/29/18 18:56 11/29/18 18:56 11/29/18 18:56 - Laboratory Laboratory results interpreted by me: 11/29/18 19:42 Urine Blood SMALL H Discharge - Discharge Clinical Impression: Vaginal discharge, Dizziness Benzodiazepine withdrawal Qualifiers: Complication of substance-induced condition: uncomplicated Qualified Code(s): F13.230 - Sedative, hypnotic or anxiolytic dependence with withdrawal, uncomplicated Condition: Good Disposition: HOME, SELF-CARE Additional Instructions: Your lab work and vaginal exam do not demonstrate any evidence of a sexual transmitted infection. Your urine is normal without evidence of infection. You are not . Your chronic dizziness is likely related to benzodiazepine withdrawal. I advised to discontinue clonazepam in its entirety as your current dose is so low it is likely only propagating your chronic withdrawal. Please discuss with your primary care doctor. Return if you develop fever of greater than 100.4 F, severe abdominal pain or persistent vomiting, pass out, or have any other symptoms that are worrisome to you. Referrals: OPAL BRASWELL MD [Primary Care Provider] - Follow up as needed
[2018-11-29] MEDS ORDERED: ACETAMINOPHEN 325 MG TABLET PO ONE (23:19)
[2018-11-29] MEDS ORDERED: ACETAMINOPHEN 325 MG TABLET ONE (23:20)
[2018-11-29 23:31] VITALS: BP 134/77
== END 2018-11-29 23:25 | disposition home or self-care (01) ==
LOC: ER 18:52
DX: N89.8 Other specified noninflammatory disorders of vagina (principal); R42 Dizziness and giddiness; F13.230 Sedative, hypnotic or anxiolytic dependence with withdrawal, uncomplicated; F41.9 Anxiety disorder, unspecified; I10 Essential (primary) hypertension; Z98.51 Tubal ligation status
CPT/HCPCS: 81001; 81025; 87210; 87491; 87591; 99284

== ENCOUNTER 2018-12-17 10:44 | Emergency (ER) | payer SELFPAY ==
--- NOTE | 2018-12-17 11:05 | ER Document Report ---
ED Medical Screen (RME) - General Chief Complaint: Psych Problem Stated Complaint: PSYCH Time Seen by Provider: 12/17/18 11:00 Primary Care Provider: OPAL BRASWELL MD [Primary Care Provider] - Follow up as needed TRAVEL OUTSIDE OF THE [place] IN LAST 30 DAYS: No - HPI Notes: 12/17/18 11:04 Patient is a 38-year-old female with a history of chronic benzodiazepine use and anxiety who presents emergency department complaining of not feeling herself and increase SI without any planning. Patient states that she has been more emotional lately. Denies BERG, fever, neck pain, URI, CP, SOB, Abd pain, v/d, or rash. I have treated and performed a rapid initial assessment of this patient. A comprehensive ED assessment and evaluation of the patient, analysis of test results and completion of medical decision making process will be conducted by additional ED providers. PHYSICAL EXAMINATION: GENERAL: Well-appearing, well-nourished and in no acute distress, but emotional/crying. A&Ox4. Answers questions appropriately. LUNGS: Breath sounds clear to auscultation bilaterally and equal. No wheezes rales or rhonchi. HEART: Regular rate and rhythm without murmurs, rubs, gallops. NEUROLOGICAL: Normal speech, normal gait. PSYCH: crying - Related Data Allergies/Adverse Reactions: promethazine [From Phenergan] Allergy (Verified 12/17/18 10:51) metoclopramide [From Reglan] Adverse Reaction (Verified 12/17/18 10:51) Past Medical History - Social History Chew tobacco use (# tins/day): Yes Frequency of alcohol use: None Drug Abuse: None - Past Medical History Cardiac Medical History: Reports: Hx Hypertension - Not on-any medications Neurological Medical History: Reports: Hx Migraine, Hx Seizures Renal/ Medical History: Reports: Hx Ovarian Cysts. Denies: Hx Peritoneal Dialysis GI Medical History: Reports: Hx Colonoscopy Musculoskeltal Medical History: Reports Hx Musculoskeletal Deformity, Reports Hx Musculoskeletal Trauma Psychiatric Medical History: Reports: Hx Anxiety, Hx Depression Past Surgical History: Reports: Hx Tubal Ligation - Immunizations Immunizations up to date: Yes Hx Diphtheria, Pertussis, Tetanus Vaccination: Yes Physical Exam - Vital signs Vitals: Temp Pulse Resp BP Pulse Ox 98.4 F 90 16 128/81 H 99 12/17/18 10:55 12/17/18 10:55 12/17/18 10:55 12/17/18 10:55 12/17/18 10:55 Course - Vital Signs Vital signs: Temp Pulse Resp BP Pulse Ox 98.4 F 90 16 128/81 H 99 12/17/18 10:55 12/17/18 10:55 12/17/18 10:55 12/17/18 10:55 12/17/18 10:55 Doctor's Discharge - Discharge Referrals: OPAL BRASWELL MD [Primary Care Provider] - Follow up as needed
[2018-12-17 11:39] LABS: ABSOLUTE EOSINOPHILS # (AUTO) 0.1 10^3/uL (0.0-0.6); ABSOLUTE LYMPHOCYTES (AUTO) 1.1 10^3/uL (0.5-4.7); ABSOLUTE MONOCYTES (AUTO) 0.3 10^3/uL (0.1-1.4); ABSOLUTE NEUT (AUTO) 2.8 10^3/uL (1.7-8.2); BASOPHILS % (AUTO) 0.6 % (0-2); EOSINOPHILS % (AUTO) 1.3 % (0-6); HEMATOCRIT 41.1 % (36.0-47.0); HEMOGLOBIN 13.9 g/dL (12.0-15.5); LYMPHOCYTES % (AUTO) 25.4 % (13-45); MEAN CORPUSCULAR HEMOGLOBIN 29.6 pg (27.0-33.4); MEAN CORPUSCULAR HGB CONC 33.8 g/dL (32.0-36.0); MEAN CORPUSCULAR VOLUME 88 fl (80-97); MONOCYTES % (AUTO) 7.5 % (3-13); PLATELET COUNT 321 10^3/uL (150-450); RED BLOOD COUNT 4.69 10^6/uL (3.72-5.28); RED CELL DISTRIBUTION WIDTH 13.7 % (11.5-14.0); SEGMENTED NEUTROPHILS % (AUTO) 65.2 % (42-78); TOTAL CELLS COUNTED % (AUTO) 100 %; WHITE BLOOD COUNT 4.4 10^3/uL (4.0-10.5)
[2018-12-17 11:46] LABS: ALANINE AMINOTRANSFERASE 34 U/L (9-52); ALBUMIN 4.8 g/dL (3.5-5.0); ALKALINE PHOSPHATASE 75 U/L (38-126); ANION GAP 9 (5-19); ASPARTATE AMINO TRANSFERASE 21 U/L (14-36); BILIRUBIN,DIRECT 0.2 mg/dL (0.0-0.4); BILIRUBIN,TOTAL 1.6 mg/dL (0.2-1.3); BLOOD UREA NITROGEN 8 mg/dL (7-20); CALCIUM 10.3 mg/dL (8.4-10.2); CARBON DIOXIDE 27 mmol/L (22-30); CHLORIDE 103 mmol/L (98-107); GLUCOSE 85 mg/dL (75-110); SODIUM 139.3 mmol/L (137-145); TOTAL PROTEIN 8.6 g/dL (6.3-8.2)
[2018-12-17 11:50] LABS: ACETAMINOPHEN < 10 ug/mL (10-30); ALCOHOL < 10 mg/dL (NONE DETECTED); SALICYLATE < 1.0 mg/dL (2.0-20.0)
[2018-12-17 11:51] LABS: APPEARANCE,URINE SLIGHTLY-CLOUDY; BILIRUBIN,URINE NEGATIVE (NEGATIVE); COLOR,URINE YELLOW; GLUCOSE, URINE NEGATIVE (NEGATIVE); KETONES,URINE 20 mg/dL (NEGATIVE); LEUKOCYTE ESTERASE,URINE MODERATE (NEGATIVE); NITRITE,URINE NEGATIVE (NEGATIVE); PROTEIN,URINE NEGATIVE (NEGATIVE); UROBILINOGEN,URINE NEGATIVE mg/dL (<2.0)
[2018-12-17 12:03] LABS: URINE AMPHETAMINES SCREEN NEGATIVE; URINE BARBITURATES SCREEN NEGATIVE; URINE BENZODIAZEPINES SCREEN NEGATIVE; URINE COCAINE SCREEN NEGATIVE; URINE MARIJUANA (THC) SCREEN NEGATIVE; URINE METHADONE SCREEN NEGATIVE; URINE PHENCYCLIDINE SCREEN NEGATIVE
--- NOTE | 2018-12-17 15:55 | PSYCHOLOGICAL NOTE ---
Psych Note - Psych Note Date seen by psych provider: 12/17/18 Time seen by psych provider: 15:10 Psych Note: Medication recommendations per [facility] contracted psychiatrist Dr. Robyn MCDERMOTT are as follows Celexa 20 mg daily BuSpar 10 mg twice daily Please discontinue Klonopin Diagnosis: 311 (F32.9) unspecified depressive disorder per history provided by patient 300.02 (F41.1) Generalized Anxiety Disorder per history and by patient Klonopin dependency Impression\plan: Patient Dr. Mcdowell was consulted and the care management this patient; attending physicians in agreement with recommendations and disposition
[2018-12-17] MEDS ORDERED: CITALOPRAM HYDROBROMIDE 20 MG TABLET PO ONE (16:01)
[2018-12-17] MEDS ORDERED: BUSPIRONE HCL 10 MG TABLET PO ONE (16:02)
[2018-12-17 16:32] VITALS: BP 118/78
--- NOTE | 2018-12-17 21:51 | EKG REPORT ---
SEVERITY:- NORMAL ECG - SINUS RHYTHM : Confirmed by: Jazzmine Jane MD 17-Dec-2018 21:50:34
--- NOTE | 2018-12-22 07:52 | ER Document Report ---
Entered by AGUSTINA GILMORE, SAMAN 12/17/18 1323 Acting as scribe for:KATIE RENTERIA MD ED Psych Disorder / Suicide <LYNNETTE WEST - Last Filed: 12/17/18 15:59> - General TRAVEL OUTSIDE OF THE [place] IN LAST 30 DAYS: No <KATIE RENTERIA - Last Filed: 12/21/18 07:47> - General Chief Complaint: Psych Problem Stated Complaint: PSYCH Time Seen by Provider: 12/17/18 11:00 Primary Care Provider: [facility] [Outside] - Follow up as needed OPAL BRASWELL MD [Primary Care Provider] - Follow up as needed Notes: 38 year old female that presents to the emergency department today with complaints of suicidal ideation. Patient was on high-dose benzodiazepines, 3 mg of clonazepam daily and her doctor attempted to titrate her down putting her on 1 mg a day, taking half milligrams in the morning and half milligram at night. Patient states during this taper she began feeling very dizzy and off balance as well as suicidal. Patient states her last menstrual period was on 11/19. Patient states Dr. Wiley attempted to try her on Lexapro for a week but she did not like the way it made her feel, stating exacerbated her dizziness. All counts of month and he slid into a door frame and then would walk on the left foot and on exam seems only, when she does not like it hurts when you dorsiflex like it may be coming from she already said that she is going to come to the mine utility operator from the family's of adult there is another acute 4-year-old female who have been adjusted anything about the forearm pain is a torus fracture with be from falling down and the other one looked and could not find what they are talking about me wherever was a subtle lucency but (AGUSTINA GILMORE) 38 year old female that presents to the emergency department today with complaints of suicidal ideation. Patient was on high-dose benzodiazepines, 3 mg of clonazepam daily and her doctor attempted to titrate her down putting her on 1 mg a day, taking half milligrams in the morning and half milligram at night. Patient states during this taper she began feeling very dizzy and off balance as well as suicidal. Patient states her last menstrual period was on 11/19. Patient states Dr. Wiley attempted to try her on Lexapro for a week but she did not like the way it made her feel, stating exacerbated her dizziness. (KATIE RENTERIA) - Related Data Allergies/Adverse Reactions: promethazine [From Phenergan] Allergy (Verified 12/17/18 10:51) metoclopramide [From Reglan] Adverse Reaction (Verified 12/17/18 10:51) Past Medical History - General Information source: Patient - Social History Smoking Status: Current Every Day Smoker Chew tobacco use (# tins/day): Yes Frequency of alcohol use: None Drug Abuse: None Lives with: Family Family History: Reviewed & Not Pertinent, DM, Hypertension, Malignancy Patient has suicidal ideation: Yes Patient has homicidal ideation: No - Past Medical History Cardiac Medical History: Reports: Hx Hypertension - Not on-any medications Neurological Medical History: Reports: Hx Migraine, Hx Seizures Renal/ Medical History: Reports: Hx Ovarian Cysts GI Medical History: Reports: Hx Colonoscopy Musculoskeletal Medical History: Reports Hx Musculoskeletal Deformity, Reports Hx Musculoskeletal Trauma Psychiatric Medical History: Reports: Hx Anxiety, Hx Depression Past Surgical History: Reports: Hx Tubal Ligation - Immunizations Immunizations up to date: Yes Hx Diphtheria, Pertussis, Tetanus Vaccination: Yes <KATIE RENTERIA - Last Filed: 12/21/18 07:47> Review of Systems - Review of Systems Constitutional: See HPI, Other - Benzodiazepine dependence EENT: No symptoms reported Cardiovascular: See HPI, Dizziness Respiratory: No symptoms reported Gastrointestinal: No symptoms reported Genitourinary: No symptoms reported Female Genitourinary: No symptoms reported Musculoskeletal: No symptoms reported Skin: No symptoms reported Hematologic/Lymphatic: No symptoms reported Neurological/Psychological: See HPI, Suicidal ideation -: Yes All other systems reviewed and negative <KATIE RENTERIA - Last Filed: 12/21/18 07:47> Physical Exam <KATIE RENTERIA - Last Filed: 12/21/18 07:47> - Vital signs Vitals: Temp Pulse Resp BP Pulse Ox 98.4 F 90 16 128/81 H 99 12/17/18 10:55 12/17/18 10:55 12/17/18 10:55 12/17/18 10:55 12/17/18 10:55 - Notes Notes: Physical Exam: General: Alert, appears depressed. HEENT: Normocephalic. Atraumatic. PERRL. Extraocular movements intact. Oropharynx clear. Neck: Supple. Non-tender. Respiratory: No respiratory distress. Clear and equal breath sounds bilaterally. Cardiovascular: Regular rate and rhythm. Abdominal: Normal Inspection. Non-tender. No distension. Normal Bowel Sounds. Back: Non-tender. No deformity or step off. Extremities: Moves all four extremities. Upper extremities: Normal inspection. Normal ROM. Lower extremities: Normal inspection. No edema. Normal ROM. Neurological: Normal cognition. AAOx4. Normal speech. Psychological: Depressed. Skin: Warm. Dry. Normal color. (AGUSTINA GILMORE) Physical Exam: General: Alert, appears depressed. HEENT: Normocephalic. Atraumatic. PERRL. Extraocular movements intact. O ropharynx clear. Neck: Supple. Non-tender. Respiratory: No respiratory distress. Clear and equal breath sounds bilaterally. Cardiovascular: Regular rate and rhythm. Abdominal: Normal Inspection. Non-tender. No distension. Normal Bowel Sounds. Back: Non-tender. No deformity or step off. Extremities: Moves all four extremities. Upper extremities: Normal inspection. Normal ROM. Lower extremities: Normal inspection. No edema. Normal ROM. Neurological: Normal cognition. AAOx4. Normal speech. Psychological: Depressed. Skin: Warm. Dry. Normal color. (KATIE RENTERIA) Course - Laboratory Result Diagrams: 12/17/18 11:11 12/17/18 11:11 <LYNNETTE WEST - Last Filed: 12/17/18 15:59> - Laboratory Result Diagrams: 12/17/18 11:11 12/17/18 11:11 - EKG Interpretation by De EKG shows normal: Sinus rhythm, [place], Intervals, QRS Complexes, ST-T Waves Rate: Normal - 89 Rhythm: NSR <KATIE RENTERIA - Last Filed: 12/21/18 07:47> - Vital Signs Vital signs: Temp Pulse Resp BP Pulse Ox 98.4 F 72 16 118/78 98 12/17/18 10:55 12/17/18 16:31 12/17/18 16:31 12/17/18 16:31 12/17/18 16:31 - Laboratory Laboratory results interpreted by al: 12/17/18 12/17/18 11:11 11:12 Calcium 10.3 H Total Bilirubin 1.6 H Total Protein 8.6 H Urine Ketones 20 H Urine Blood SMALL H Ur Leukocyte Esterase MODERATE H Urine Ascorbic Acid 20 H Salicylates < 1.0 L Acetaminophen < 10 L Discharge <LYNNETTE WEST - Last Filed: 12/17/18 15:59> <KATIE RENTERIA - Last Filed: 12/21/18 07:47> - Discharge Clinical Impression: Klonopin use disorder, moderate, dependence Depression Qualifiers: Depression Type: unspecified Qualified Code(s): F32.9 - Major depressive disorder, single episode, unspecified Condition: Stable Disposition: HOME, SELF-CARE Additional Instructions: You have been evaluated both medical and behavioral health teams have been deem ed appropriate for discharge. You have been provided prescriptions for Celexa 20 mg daily and BuSpar 10 mg twice daily; please take as directed. You have been provided a resource list of area providers including mobile crisis contact information. You are highly encouraged to go to detox to help overcome your Klonopin dependency. NARCOTIC / OPIOD ABUSE: Narcotics and opiods are pain-relieving drugs that are often abused. They are addicting. Narcotics cause euphoria, but it often takes increasing amounts to "feel good" and avoid withdrawal symptoms. Overdose of narcotics causes small pupils, coma, and decreased breathing. It's a common cause of . Purity of street narcotics is unpredictable. Injection of narcotics is risky for abscesses, endocarditis (heart infection), pneumonia, and AIDS. Withdrawal from narcotics causes goose bumps, watery mouth, sweating, nasal congestion, muscle aches, abdominal cramps, vomiting, and diarrhea. There's often restlessness and confusion. Treatment programs are available, but you must make the decision to quit. Medication (such as clonidine) can be prescribed to control the symptoms of withdrawal. DEPRESSION: Your evaluation reveals that you have mental depression. While symptoms may be vague, they often include disturbance of sleep, fatigue, loss of appetite, and general loss of interest in life. While depression may be a side effect of drugs, or a reaction to a major change in your life, many cases have no known cause. If depression is acute, and related to a major loss in your life, you can expect it to clear completely with time. If you have been depressed a long time , are prone to repeated bouts of depression or low mood, or have been thinking of suicide, get help. Depression can be treated with anti-depressant medication and counselling. Long-term depression will often take a few weeks to clear, even with appropriate medication. Follow-up care is important. SUICIDAL IDEATION: Suicidal ideation is a common medical term for thoughts about suicide, which may be as detailed as a formulated plan, without the suicidal act itself. Although most people who undergo suicidal ideation do not commit suicide, some go on to make suicide attempts. The range of suicidal ideation varies greatly from fleeting to detailed planning, role playing, and unsuccessful attempts. While thoughts about suicide are common, most people do not carry out serious actions to commit suicide. Based upon your evaluation and discussion with you, we do not believe you are currently at risk to act upon your thoughts of suicide. You have agreed to return to the Emergency Department, at any time, if you feel inclined to act upon your suicidal thoughts. FOLLOW-UP CARE: If you have been referred to a physician for follow-up care, call the physicians office for an appointment as you were instructed or within the next two days. If you experience worsening or a significant change in your symptoms, notify the physician immediately or return to the Emergency Department at any time for re-evaluation. Prescriptions: Buspirone HCl [Buspar 10 mg Tablet] 10 mg PO BID #28 tablet Citalopram Hydrobromide [Celexa 20 mg Tablet] 20 mg PO DAILY #14 tablet Referrals: OPAL BRASWELL MD [Primary Care Provider] - Follow up as needed [facility] [Outside] - Follow up as needed Scribe Attestation: 12/17/18 13:23 I personally performed the services described in the documentation, reviewed and edited the documentation which was dictated to the scribe in my presence, and it accurately records my words and actions. (AGUSTINA GILMORE) 12/17/18 13:23 I personally performed the services described in the documentation, reviewed and edited the documentation which was dictated to the scribe in my presence, and it accurately records my words and actions. (KATIE RENTERIA) I personally performed the services described in the documentation, reviewed and edited the documentation which was dictated to the scribe in my presence, and it accurately records my words and actions.
== END 2018-12-17 16:35 | disposition home or self-care (01) ==
LOC: ER 10:44
DX: F19.20 Other psychoactive substance dependence, uncomplicated (principal); F32.9 Major depressive disorder, single episode, unspecified; R42 Dizziness and giddiness; R45.851 Suicidal ideations; F17.200 Nicotine dependence, unspecified, uncomplicated; Z98.51 Tubal ligation status
CPT/HCPCS: 36415; 80053; 80307; 81001; 84703; 85025; 93005; 93010; 99285

== ENCOUNTER 2018-12-21 07:25 | Emergency (ER) | payer SELFPAY ==
[2018-12-21 08:50] LABS: ABSOLUTE LYMPHOCYTES (AUTO) 0.9 10^3/uL (0.5-4.7); ABSOLUTE MONOCYTES (AUTO) 0.4 10^3/uL (0.1-1.4); ABSOLUTE NEUT (AUTO) 3.8 10^3/uL (1.7-8.2); BASOPHILS % (AUTO) 0.7 % (0-2); EOSINOPHILS % (AUTO) 0.6 % (0-6); HEMATOCRIT 39.5 % (36.0-47.0); HEMOGLOBIN 13.4 g/dL (12.0-15.5); LYMPHOCYTES % (AUTO) 17.6 % (13-45); MEAN CORPUSCULAR HEMOGLOBIN 29.9 pg (27.0-33.4); MEAN CORPUSCULAR HGB CONC 34.1 g/dL (32.0-36.0); MEAN CORPUSCULAR VOLUME 88 fl (80-97); MONOCYTES % (AUTO) 7.2 % (3-13); PLATELET COUNT 332 10^3/uL (150-450); RED CELL DISTRIBUTION WIDTH 13.8 % (11.5-14.0); SEGMENTED NEUTROPHILS % (AUTO) 73.9 % (42-78); TOTAL CELLS COUNTED % (AUTO) 100 %; WHITE BLOOD COUNT 5.2 10^3/uL (4.0-10.5)
[2018-12-21 08:52] LABS: APPEARANCE,URINE CLEAR; BILIRUBIN,URINE NEGATIVE (NEGATIVE); COLOR,URINE STRAW; GLUCOSE, URINE NEGATIVE (NEGATIVE); KETONES,URINE TRACE mg/dL (NEGATIVE); LEUKOCYTE ESTERASE,URINE NEGATIVE (NEGATIVE); NITRITE,URINE NEGATIVE (NEGATIVE); PROTEIN,URINE NEGATIVE (NEGATIVE); URINE SPECIFIC GRAVITY 1.003; UROBILINOGEN,URINE NEGATIVE mg/dL (<2.0)
[2018-12-21 08:54] LABS: URINE AMPHETAMINES SCREEN NEGATIVE; URINE BARBITURATES SCREEN NEGATIVE; URINE BENZODIAZEPINES SCREEN NEGATIVE; URINE COCAINE SCREEN NEGATIVE; URINE MARIJUANA (THC) SCREEN NEGATIVE; URINE METHADONE SCREEN NEGATIVE; URINE PHENCYCLIDINE SCREEN NEGATIVE
[2018-12-21 08:58] LABS: ALANINE AMINOTRANSFERASE 29 U/L (9-52); ALBUMIN 4.3 g/dL (3.5-5.0); ALKALINE PHOSPHATASE 74 U/L (38-126); ANION GAP 9 (5-19); ASPARTATE AMINO TRANSFERASE 19 U/L (14-36); BILIRUBIN,DIRECT 0.1 mg/dL (0.0-0.4); BILIRUBIN,TOTAL 1.3 mg/dL (0.2-1.3); BLOOD UREA NITROGEN 5 mg/dL (7-20); CARBON DIOXIDE 30 mmol/L (22-30); CHLORIDE 101 mmol/L (98-107); GLUCOSE 95 mg/dL (75-110); POTASSIUM 3.6 mmol/L (3.6-5.0); SODIUM 140.4 mmol/L (137-145); TOTAL PROTEIN 7.9 g/dL (6.3-8.2)
[2018-12-21 09:00] LABS: ACETAMINOPHEN < 10 ug/mL (10-30); ALCOHOL < 10 mg/dL (NONE DETECTED); SALICYLATE < 1.0 mg/dL (2.0-20.0)
[2018-12-21] MEDS ORDERED: MORPHINE SULFATE 10 MG/ML INJ IV ONE (10:03)
[2018-12-21] MEDS ORDERED: ONDANSETRON HCL INJ/PF 4 MG/2 ML SDV IV ONE (10:03)
[2018-12-21] MEDS ORDERED: NORMAL SALINE 1000 ML 1,000 ML IV ONE (10:03)
[2018-12-21] MEDS ORDERED: LIDOCAINE 1% INJ-PF (10 MG/ML) 30 ML SDV INJ ONE (10:04)
--- NOTE | 2018-12-21 11:00 | PSYCHOLOGICAL NOTE ---
Psych Note - Psych Note Date seen by psych provider: 12/21/18 Time seen by psych provider: 08:32 - Chart review at 0832. Evaluation from 0840- 0849. Mother collateral from [id number]. Psych Note: Reason for Consult: Increased Depression/Anxiety, SI with plan to drown self Contact Permissions: Mother Thuy Hopkins [phone] Patient is a 38 year old female who presented to the ED this morning via EMS for increased depression/anxiety and SI for 2 weeks, SI leaves her disoriented and without energy, with decreased appetite, reported family is not supportive and she presented tearful. She stated "I woke up feeling not there, I was feeling so bad, I normally push myself through the day, today I didn't feel like I could, I was having different thoughts like walking to the [place] by the baseball [place] by my house, I really need to be in a safe place and the doctor to work with me." She stated she had SI at moment of evaluation. She denied previous past attempts and mentioned her children. Patient identified she had been going to [facility] and was prescribed Clonazepam for 5 years, in August 2018 was stopped cold turkey and then in September 2018 when she had an appointment with PCM Dr. Beal he put her back on a lower dose and said to ween off. She reported she took the Clonazepam as prescribed and mentioned people telling her she took more which was not the case. She stated she came to the ED 4 days ago (was seen by behavioral health 12/17/18). She reported she started taking the Celexa (20MG QD) and Buspar (10MG BID) right away and has been taking it since. She identified "I have had no sleep in 4 days, no appetite and shaking bad." She commented "since stopping Clonazepam cold turkey I have felt way too pumped up and anxious, my concentration is off and it's hard just talking about it." She denied HI. She denied previous MH and SA hospitalizations. She denied any kind of SA treatment. She denied having a current MH provider and mentioned she no longer has insurance and does not want to go back to [facility] because "they will just put me back on the Clonazepam." She reported a family history of MH: mother has Bipolar diagnosis. She stated she feels like her parents aren't supportive because they don't understand. She stated the [facility] had a bed for her the other day but her mother would not take her. Patient was alert and oriented to self, person, place, time and situation. Mood was anxious with congruent affect as evidenced by tremulousness, difficulty describing things and poor concentration. She endorsed current SI with plan to drown self in [place] however commented she came seeking a safe place and denied previous attempts. She denied HI. She did not appear to be responding to internal stimuli as evidenced by fair eye contact, answering questions appropriately when addressed, staying on topic and carrying on dialogue conversation. Thought processes were linear but a bit slower. Conversational speech was quick in rate and soft in tone. Intellectual abilities are estimated to be average. Insight, judgment and impulse control were fair as evidenced by seeking help when she felt like she was unsafe with her thinking and wanted to go to a safe place. Spoke to patient's mother via telephone. Patient requested mother be educated about benzo withdrawal. This was done in addition to collecting collateral. She stated patient has "been complaining of headaches and not feeling well." She noted "she has been coming off [employer], she was prescribed one a day but would take 2-4 a day especially the last 3 years." She reported patient "fell on the floor getting out of bed the other night, had been depressed and laying around a lot and her BP has been increased." She stated patient has still been taking half a pill a day. She stated Dr. Beal is her PCM and prescribes the medication. She stated she (mother is prescribed the same medication). She identified patient's older sister almost 4 years ago, her )patient's) marriage ended and she lost her rights to her daughter all around the same time. She confirmed the [facility] called back on a Saturday, that day mother could not take patient due to other things already planned but she said she could take her Saturday. 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 Robyn MD., includes: Discontinue Celexa 20MG daily for depression/anxiety Add Zyprexa 2.5MG in the morning for mood stabilization/impulse control Add Zyprexa 5MG at night for mood stabilization/impulse control Continue Buspar 10MG twice a day for anxiety/calming effect/nonaddictive/depression/sleep Impression/Plan: Recommendation to hold patient overnight voluntarily. Medication adjustments have been made. Want to allow a safe place, a night of rest and sleep and ensure she tolerates medication well. It seems patient may be going through benzodiazepine withdrawal given her symptoms (poor concentration, shakiness, poor sleep, poor appetite, depression, SI) and mother's report patient is still taking half a pill a day but had been taking 3-5 a day when only supposed to be 1 a day. Will reassess in the morning with likely plan to discharge to [facility] for voluntary detox (preferably) or linkage to local outpatient provider for medications management and therapy related to dual diagnosis MH and SA. Consulted with Dr. Mcdowell regarding the management and care of patient. ED Physician in agreement with recommendations.
[2018-12-21] MEDS: OLANZAPINE 2.5 MG TABLET PO SCH (13:01)
[2018-12-21] MEDS: BUSPIRONE HCL 10 MG TABLET PO SCH ×2 (13:01→18:25)
[2018-12-21] MEDS: BENZTROPINE MESYLATE 1 MG TABLET PO SCH (13:01)
--- NOTE | 2018-12-21 13:23 | ER Document Report ---
Addendum entered and electronically signed by LYNNETTE WEST LCSWA 12/22/18 10:17: Discharge - Discharge Clinical Impression: Suicidal ideation, Klonopin use disorder, severe, dependence Depression Qualifiers: Depression Type: unspecified Qualified Code(s): F32.9 - Major depressive disorder, single episode, unspecified Condition: Stable Disposition: HOME, SELF-CARE Additional Instructions: You have been evaluated both medical and behavioral health teams have been deemed appropriate for discharge. You have been secured a bed at the [facility] in [place]. This is a voluntary placement. You are highly encouraged to follow through with this placement to assist with detox and stabilization. Please follow-up with both substance abuse and mental health treatment after detox. NARCOTIC / OPIOD ABUSE: Narcotics and opiods are pain-relieving drugs that are often abused. They are addicting. Narcotics cause euphoria, but it often takes increasing amounts to "feel good" and avoid withdrawal symptoms. Overdose of narcotics causes small pupils, coma, and decreased breathing. It's a common cause of . Purity of street narcotics is unpredictable. Injection of narcotics is risky for abscesses, endocarditis (heart infection), pneumonia, and AIDS. Withdrawal from narcotics causes goose bumps, watery mouth, sweating, nasal congestion, muscle aches, abdominal cramps, vomiting, and diarrhea. There's often restlessness and confusion. Treatment programs are available, but you must make the decision to quit. Medication (such as clonidine) can be prescribed to control the symptoms of withdrawal. DEPRESSION: Your evaluation reveals that you have mental depression. While symptoms may be vague, they often include disturbance of sleep, fatigue, loss of appetite, and general loss of interest in life. While depression may be a side effect of drugs, or a reaction to a major change in your life, many cases have no known cause. If depression is acute, and related to a major loss in your life, you can expect it to clear completely with time. If you have been depressed a long time, are prone to repeated bouts of depression or low mood, or have been thinking of suicide, get help. Depression can be treated with anti-depressant medication and counselling. Long-term depression will often take a few weeks to clear, even with appropriate medication. Follow-up care is important. SUICIDAL IDEATION: Suicidal ideation is a common medical term for thoughts about suicide, which may be as detailed as a formulated plan, without the suicidal act itself. Although most people who undergo suicidal ideation do not commit suicide, some go on to make suicide attempts. The range of suicidal ideation varies greatly from fleeting to detailed planning, role playing, and unsuccessful attempts. While thoughts about suicide are common, most people do not carry out serious actions to commit suicide. Based upon your evaluation and discussion with you, we do not believe you are currently at risk to act upon your thoughts of suicide. You have agreed to return to the Emergency Department, at any time, if you feel inclined to act upon your suicidal thoughts. FOLLOW-UP CARE: If you have been referred to a physician for follow-up care, call the physicians office for an appointment as you were instructed or within the next two days. If you experience worsening or a significant change in your symptoms, notify the physician immediately or return to the Emergency Department at any time for re-evaluation. FOLLOW-UP CARE: If you have been referred to a physician for follow-up care, call the physicians office for an appointment as you were instructed or within the next two days. If you experience worsening or a significant change in your symptoms, notify the physician immediately or return to the Emergency Department at any time for re-evaluation. Referrals: OPAL BRASWELL MD [Primary Care Provider] - Follow up as needed [facility] [Outside] - 12/22/18 2:00 pm Scribe Attestation: 12/21/18 08:42 I personally performed the services described in the documentation, reviewed and edited the documentation which was dictated to the scribe in my presence, and it accurately records my words and actions. Original Note: Entered by GEORGE URBINA SCRIBE 12/21/18 0815 Acting as scribe for:KATIE RENTERIA MD ED Psych Disorder / Suicide - General Chief Complaint: Suicidal Ideation Stated Complaint: PSYCH CONSULT Time Seen by Provider: 12/21/18 07:41 Primary Care Provider: OPAL BRASWELL MD [Primary Care Provider] - Follow up as needed Mode of Arrival: Ambulatory Information source: Patient Notes: Patient is a 38 year old female presenting to the emergency department complaining of dizziness and suicidal ideation. Patient states she has had an increase of suicidal thoughts recently that leaves her disoriented and without energy further stating she has only consumed a cup of noodles within the last three days. She states her family is not supportive of her and reports "I want to go into the river". Patient presented to this ED on 12/17/18 complaining of suicidal ideation. At that time patient reported being on a high-dose benzodiazepines, and her PCP attempting to significantly taper her doses. Patient was discharged home with BuSpar and Celexa. TRAVEL OUTSIDE OF THE [place] IN LAST 30 DAYS: No - Related Data Allergies/Adverse Reactions: promethazine [From Phenergan] Allergy (Verified 12/17/18 10:51) metoclopramide [From Reglan] Adverse Reaction (Verified 12/17/18 10:51) Past Medical History - General Information source: Patient - Social History Smoking Status: Never Smoker Cigarette use (# per day): No Chew tobacco use (# tins/day): Yes Frequency of alcohol use: None Drug Abuse: None Family History: Reviewed & Not Pertinent, DM, Hypertension, Malignancy Patient has suicidal ideation: Yes Patient has homicidal ideation: No - Past Medical History Cardiac Medical History: Reports: Hx Hypertension - Not on-any medications Neurological Medical History: Reports: Hx Migraine, Hx Seizures Renal/ Medical History: Reports: Hx Ovarian Cysts GI Medical History: Reports: Hx Colonoscopy Musculoskeletal Medical History: Reports Hx Musculoskeletal Deformity, Reports Hx Musculoskeletal Trauma Psychiatric Medical History: Reports: Hx Anxiety, Hx Depression Past Surgical History: Reports: Hx Tubal Ligation - Immunizations Immunizations up to date: Yes Hx Diphtheria, Pertussis, Tetanus Vaccination: Yes Review of Systems - Review of Systems Constitutional: No symptoms reported EENT: No symptoms reported Cardiovascular: See HPI, Dizziness Respiratory: No symptoms reported Gastrointestinal: No symptoms reported Genitourinary: No symptoms reported Female Genitourinary: No symptoms reported Musculoskeletal: No symptoms reported Skin: No symptoms reported Hematologic/Lymphatic: No symptoms reported Neurological/Psychological: See HPI, Suicidal ideation -: Yes All other systems reviewed and negative Physical Exam - Notes Notes: GENERAL: Alert, interacts well. No acute distress. HEAD: Normocephalic, atraumatic. EYES: Pupils equal, round, and reactive to light. Extraocular movements intact. ENT: Oral mucosa moist, tongue midline. NECK: Full range of motion. Supple. Trachea midline. LUNGS: Clear to auscultation bilaterally, no wheezes, rales, or rhonchi. No respiratory distress. HEART: Regular rate and rhythm. No murmurs, gallops, or rubs. ABDOMEN: Soft, non-tender. Non-distended. Bowel sounds present in all 4 quadrants. No guarding, rigidity, or rebound. EXTREMITIES: Moves all 4 extremities spontaneously. No edema. No cyanosis. NEUROLOGICAL: Alert and oriented x3. Normal speech. PSYCH: Tearful, appears depressed. Reports a suicidal plan of "walking into a river". SKIN: Warm, dry, normal turgor. No rashes or lesions noted. Course - Laboratory Result Diagrams: 12/21/18 08:18 12/21/18 08:18 Laboratory results interpreted by me: 12/21/18 12/21/18 08:18 08:18 BUN 5 L Urine Ketones TRACE H Urine Blood MODERATE H Salicylates < 1.0 L Acetaminophen < 10 L - EKG Interpretation by Ia EKG shows normal: Sinus rhythm, [place], Intervals, QRS Complexes, ST-T Waves Rate: Normal - 68 Rhythm: NSR Discharge - Discharge Clinical Impression: Suicidal ideation Depression Qualifiers: Depression Type: unspecified Qualified Code(s): F32.9 - Major depressive disorder, single episode, unspecified Condition: Stable Disposition: PSYCH HOSP/UNIT Referrals: OPAL BRASWELL MD [Primary Care Provider] - Follow up as needed Scribe Attestation: 12/21/18 08:42 I personally performed the services described in the documentation, reviewed and edited the documentation which was dictated to the scribe in my presence, and it accurately records my words and actions. I personally performed the services described in the documentation, reviewed and edited the documentation which was dictated to the scribe in my presence, and it accurately records my words and actions.
--- NOTE | 2018-12-21 20:51 | EKG REPORT ---
SEVERITY:- NORMAL ECG - SINUS RHYTHM : Confirmed by: Jazzmine Jane MD 21-Dec-2018 20:50:24
[2018-12-21] MEDS ORDERED: OLANZAPINE 5 MG TABLET PO SCH (22:00)
[2018-12-22] MEDS: OLANZAPINE 2.5 MG TABLET PO SCH (09:35)
[2018-12-22] MEDS: BUSPIRONE HCL 10 MG TABLET PO SCH (09:36)
[2018-12-22] MEDS: BENZTROPINE MESYLATE 1 MG TABLET PO SCH (09:36)
--- NOTE | 2018-12-22 10:09 | ER Document Report ---
Doctor's Note Notes: 12/22/18 10:07 Patient seen and evaluated. She is resting comfortably. She has no immediate complaints. Patient does state that she feels frustrated when she is around her mother. Her mother is definitely a trigger of her anger. She is currently living with her mother for the next month and a half at which time she plans on moving out with her boyfriend. She states her mother and her argue frequently but only have big arguments like this a few times a year. She states that she feels like she would rather at her own hands then allow her mother to kill her. She currently states that she feels safe at home and that her mother has never physically harmed her. She denies wanting to and states that she has a dog and a boyfriend that she loves. She states she only thinks about suicide as a last resort when she is having arguments with her mother. I did recommend patient trying to live at a jail in the meantime to avoid contact with her mother however she states she will not leave her service dog, which is undocumented, behind she is not currently actively suicidal. She has no specific plan of hurting herself. I do feel she is not a risk to her own personal safety at this point in time. She is aware of options including the jail and returning to the emergency room. Likely plan to discharge home today pending final psych evaluation.
--- NOTE | 2018-12-22 10:14 | ER Document Report ---
Doctor's Note Notes: 12/22/18 10:13 Please disregard the other note from 12/22/2018 on this patient which was entered in error but cannot be deleted because the EMR system. I did evaluate this patient. She is resting comfortably with no acute issues. She has elected to sign herself into a psychiatric facility for further mental health care. She is not currently suicidal or homicidal but states she does not feel well. She states she wants to be a better mother and feels that after working on her mental health as an inpatient she will be able to provide better for her children. She is voluntarily signing in and is stable for transportation.
--- NOTE | 2018-12-22 10:15 | PSYCHOLOGICAL NOTE ---
Psych Note - Psych Note Date seen by psych provider: 12/22/18 Time seen by psych provider: 08:25 Psych Note: Reason for Consult: Increased Depression/Anxiety, SI with plan to drown self Contact Permissions: Mother Thuy Hopkins [phone] Patient is a 38 year old female who presented to the ED via EMS for increased depression/anxiety and SI for 2 weeks, SI leaves her disoriented and without energy, with decreased appetite, reported family is not supportive and she p resented tearful. Check in conducted with patient Patient denies thoughts of wanting to hurt herself. She reports that she has been having such difficulty getting off Klonopin and would like assistance with detox. She states that she feels her parents do not understand how difficult it is. She reports that when her parents told her that she just has to go through the process and does not need to go to detox, she disclosed she started increasing her use of Klonopin again because of her emotions. Patient reports that she is tired of feeling weak and shaking. Behavior health team contacted the [facility]: They have a bed available in conducted phone interview. Bed has been confirmed and she needs to check-in by 2 PM. Patient contacted her mother to disclose there is a bed available at detox and requested assistance for transport. Patient handed phone to clinician. Clinician spoke with patient's mother, Thuy, who reports that she will be contacting the patient's father to arrange transportation. She reports that she is unable to take the patient because of car difficulties. 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 Robyn MD., includes: Discontinue Celexa 20MG daily for depression/anxiety Add Zyprexa 2.5MG in the morning for mood stabilization/impulse control Add Zyprexa 5MG at night for mood stabilization/impulse control Continue Buspar 10MG twice a day for anxiety/calming effect/nonaddictive/depression/sleep Impression/Plan: Patient is cleared from acute psychiatric services. Patient stayed voluntarily for medication adjustments. Patient may be going through benzodiazepine withdrawal given her symptoms (poor concentration, shakiness, po or sleep, poor appetite, depression, SI) and mother's report patient is still taking half a pill a day but had been taking 3-5 a day when only supposed to be 1 a day. Patient has a history of having Klonopin dependency, misuse and withdrawal difficulties. The [facility] has accepted the patient and has reserved a bed for her to check in at 2 PM today. This is a voluntary placement. Patient is highly encouraged to follow through with this placement. Dr. Mcdowell was consulted and the care management of this patient; attending physicians in agreement with recommendations and disposition.
[2018-12-22 10:50] VITALS: BP 128/82
== END 2018-12-22 10:50 | disposition home or self-care (01) ==
LOC: ER 07:25
DX: R45.851 Suicidal ideations (principal); F32.9 Major depressive disorder, single episode, unspecified; F13.20 Sedative, hypnotic or anxiolytic dependence, uncomplicated; F41.9 Anxiety disorder, unspecified; R42 Dizziness and giddiness; Z98.51 Tubal ligation status
CPT/HCPCS: 93005; 99285; 36415; 80307 ×4; 84703; 85025; 80053; 81001; 93010; J3490 ×2

== ENCOUNTER 2019-01-01 11:01 | Emergency (ER) | payer SELFPAY ==
--- NOTE | 2019-01-01 11:42 | ER Document Report ---
ED Medical Screen (RME) - General Chief Complaint: Dizziness Stated Complaint: DIZZINESS Time Seen by Provider: 01/01/19 11:33 Primary Care Provider: OPAL BRASWELL MD [Primary Care Provider] - Follow up as needed Mode of Arrival: Ambulatory Information source: Patient TRAVEL OUTSIDE OF THE [place] IN LAST 30 DAYS: No - HPI Patient complains to provider of: SI Notes: 01/01/19 11:41 Patient here stating that she does not feel well. She states that she stopped taking all of her psych medications 2 weeks ago. She does not feel like herself and feels somewhat dizzy. She also states that she is having some suicidal thoughts. She states [place] She has a history of this in the past. No other specific complaints at this moment. Exam Patient wearing sunglasses, not making good eye contact. No distress, nontoxic appearing. Tearful. Lungs clear and equal throughout. Heart sounds normal. Plan CBC, CMP, urine, urine , TSH, drug screen, EtOH, psych consult. An initial examination was made on the patient as part of the triage process, and it was determined a more comprehensive evaluation was necessary. Initial labs were ordered and patient was transferred to another provider in the ED who assumed care and finished evaluation and plan. - Related Data Allergies/Adverse Reactions: promethazine [From Phenergan] Allergy (Verified 01/01/19 11:02) metoclopramide [From Reglan] Adverse Reaction (Verified 01/01/19 11:02) Past Medical History - Past Medical History Cardiac Medical History: Reports: Hx Hypertension - Not on-any medications Neurological Medical History: Denies: Hx Migraine, Hx Seizures Renal/ Medical History: Reports: Hx Ovarian Cysts. Denies: Hx Peritoneal Dialysis GI Medical History: Reports: Hx Colonoscopy Musculoskeltal Medical History: Reports Hx Musculoskeletal Deformity, Reports Hx Musculoskeletal Trauma Psychiatric Medical History: Reports: Hx Anxiety, Hx Depression Past Surgical History: Reports: Hx Tubal Ligation - Immunizations Immunizations up to date: Yes Hx Diphtheria, Pertussis, Tetanus Vaccination: Yes Physical Exam - Vital signs Vitals: Temp Pulse Resp BP Pulse Ox 99.1 F 101 H 18 156/85 H 98 01/01/19 11:04 01/01/19 11:04 01/01/19 11:04 01/01/19 11:04 01/01/19 11:04 Course - Vital Signs Vital signs: Temp Pulse Resp BP Pulse Ox 99.1 F 101 H 18 156/85 H 98 01/01/19 11:04 01/01/19 11:04 01/01/19 11:04 01/01/19 11:04 01/01/19 11:04 Doctor's Discharge - Discharge Referrals: OPAL BRASWELL MD [Primary Care Provider] - Follow up as needed
[2019-01-01 12:11] LABS: ABSOLUTE LYMPHOCYTES (AUTO) 0.6 10^3/uL (0.5-4.7); ABSOLUTE MONOCYTES (AUTO) 0.5 10^3/uL (0.1-1.4); ABSOLUTE NEUT (AUTO) 2.7 10^3/uL (1.7-8.2); BASOPHILS % (AUTO) 0.8 % (0-2); EOSINOPHILS % (AUTO) 0.7 % (0-6); HEMATOCRIT 39.8 % (36.0-47.0); HEMOGLOBIN 13.1 g/dL (12.0-15.5); LYMPHOCYTES % (AUTO) 15.6 % (13-45); MEAN CORPUSCULAR HEMOGLOBIN 28.9 pg (27.0-33.4); MEAN CORPUSCULAR HGB CONC 32.8 g/dL (32.0-36.0); MEAN CORPUSCULAR VOLUME 88 fl (80-97); MONOCYTES % (AUTO) 13.1 % (3-13); PLATELET COUNT 306 10^3/uL (150-450); RED BLOOD COUNT 4.52 10^6/uL (3.72-5.28); RED CELL DISTRIBUTION WIDTH 13.7 % (11.5-14.0); SEGMENTED NEUTROPHILS % (AUTO) 69.8 % (42-78); TOTAL CELLS COUNTED % (AUTO) 100 %; WHITE BLOOD COUNT 3.9 10^3/uL (4.0-10.5)
[2019-01-01 12:17] LABS: APPEARANCE,URINE CLEAR; BILIRUBIN,URINE NEGATIVE (NEGATIVE); COLOR,URINE COLORLESS; GLUCOSE, URINE NEGATIVE (NEGATIVE); KETONES,URINE NEGATIVE (NEGATIVE); LEUKOCYTE ESTERASE,URINE NEGATIVE (NEGATIVE); NITRITE,URINE NEGATIVE (NEGATIVE); PROTEIN,URINE NEGATIVE (NEGATIVE); URINE SPECIFIC GRAVITY 1.002; UROBILINOGEN,URINE NEGATIVE mg/dL (<2.0)
[2019-01-01 12:31] LABS: ALANINE AMINOTRANSFERASE 44 U/L (9-52); ALBUMIN 4.4 g/dL (3.5-5.0); ALKALINE PHOSPHATASE 65 U/L (38-126); ANION GAP 11 (5-19); ASPARTATE AMINO TRANSFERASE 26 U/L (14-36); BILIRUBIN,DIRECT 0.2 mg/dL (0.0-0.4); BILIRUBIN,TOTAL 0.5 mg/dL (0.2-1.3); BLOOD UREA NITROGEN 4 mg/dL (7-20); CALCIUM 9.8 mg/dL (8.4-10.2); CARBON DIOXIDE 30 mmol/L (22-30); CHLORIDE 99 mmol/L (98-107); GLUCOSE 86 mg/dL (75-110); POTASSIUM 4.1 mmol/L (3.6-5.0); TOTAL PROTEIN 7.7 g/dL (6.3-8.2)
[2019-01-01 12:33] LABS: ALCOHOL < 10 mg/dL (NONE DETECTED)
[2019-01-01 12:39] LABS: URINE AMPHETAMINES SCREEN NEGATIVE; URINE BARBITURATES SCREEN UNCONFIRMED POSITIVE; URINE BENZODIAZEPINES SCREEN NEGATIVE; URINE COCAINE SCREEN NEGATIVE; URINE MARIJUANA (THC) SCREEN NEGATIVE; URINE METHADONE SCREEN NEGATIVE; URINE PHENCYCLIDINE SCREEN NEGATIVE
--- NOTE | 2019-01-01 14:37 | ER Document Report ---
ED General <LYNNETTE WEST - Last Filed: 01/01/19 16:53> - General Mode of Arrival: Ambulatory TRAVEL OUTSIDE OF THE [place] IN LAST 30 DAYS: No <JENNYFER DOWNEY - Last Filed: 01/01/19 22:06> - General Chief Complaint: Dizziness Stated Complaint: DIZZINESS Time Seen by Provider: 01/01/19 11:33 Primary Care Provider: [facility] [Outside] - Follow up tomorrow OPAL BRASWELL MD [ACTIVE STAFF] - Follow up as needed Notes: Patient is a 38-year-old female with history of depression and anxiety that presents to the emergency department for chief complaint of dizziness, and suicidal ideations. Patient has a history of personality disorder, and she states that she has been having thoughts of suicide, she states that her son is coming up in graduation, and she is not sure why she is having these thoughts, does not have any particular plan., She has been on Celexa and clonazepam in the past, but recently discontinued all of her medications about 2 weeks ago, she has been having some lightheadedness associated today, and thinks it may be related to her stopping all these medications. She does have a counselor at [facility], but has not seen them recently. But plans on following up with them. She denies any access to firearms, denies illicit drug use, or alcohol use. She states that she has children, and would not want to commit suicide, she is slightly tearful at this time, but is having appropriate thoughts and interactions. Past Medical History: Anxiety, depression Past Surgical History: Tubal ligation Social History: Former smoker, alcohol or drug use. Family History: Reviewed and noncontributory for presenting illness Allergies: Reviewed, see documented allergy list. REVIEW OF SYSTEMS: Other than noted above, the 12 point review of systems was reviewed with the patient and were negative, all pertinent findings are included in the HPI. PHYSICAL EXAMINATION: Vital signs reviewed, nursing noted reviewed. GENERAL: Well-appearing, well-nourished and in no acute distress. HEAD: Atraumatic, normocephalic. EYES: Eyes appear normal, extraocular movements intact, sclera anicteric, conjunctiva are normal. ENT: nares patent, oropharynx clear without exudates. Moist mucous membranes. NECK: Normal range of motion, supple without lymphadenopathy LUNGS: Breath sounds clear to auscultation bilaterally and equal. No wheezes rales or rhonchi. HEART: Regular rate and rhythm without murmurs ABDOMEN: Soft, nontender, normoactive bowel sounds. No rebound, guarding, or rigidity. No masses appreciated. EXTREMITIES: Nontender, good range of motion, no pitting or edema. NEUROLOGICAL: No focal neurological deficits. Moves all extremities spontaneously Motor and sensory grossly intact on exam. PSYCH: Tearful, but appropriately answering questions, and makes good eye contac t on exam. SKIN: Warm, Dry, normal turgor, no rashes or lesions noted on exposed skin (JENNYFER DOWNEY) - Related Data Allergies/Adverse Reactions: promethazine [From Phenergan] Allergy (Verified 01/01/19 11:02) metoclopramide [From Reglan] Adverse Reaction (Verified 01/01/19 11:02) Past Medical History - General Information source: Patient - Social History Smoking Status: Never Smoker Family History: Reviewed & Not Pertinent, DM, Hypertension, Malignancy Patient has suicidal ideation: No Patient has homicidal ideation: No - Past Medical History Cardiac Medical History: Reports: Hx Hypertension - Not on-any medications Neurological Medical History: Denies: Hx Migraine, Hx Seizures Renal/ Medical History: Reports: Hx Ovarian Cysts. Denies: Hx Peritoneal Dialysis GI Medical History: Reports: Hx Colonoscopy Musculoskeletal Medical History: Reports Hx Musculoskeletal Deformity, Reports Hx Musculoskeletal Trauma Psychiatric Medical History: Reports: Hx Anxiety, Hx Depression Past Surgical History: Reports: Hx Tubal Ligation - Immunizations Immunizations up to date: Yes Hx Diphtheria, Pertussis, Tetanus Vaccination: Yes <JENNYFER DOWNEY - Last Filed: 01/01/19 22:06> - Vital signs Vitals: Temp Pulse Resp BP Pulse Ox 99.1 F 101 H 18 156/85 H 98 01/01/19 11:04 01/01/19 11:04 01/01/19 11:04 01/01/19 11:04 01/01/19 11:04 Course - Laboratory Result Diagrams: 01/01/19 11:51 01/01/19 11:51 <LYNNETTE WEST - Last Filed: 01/01/19 16:53> - Laboratory Result Diagrams: 01/01/19 11:51 01/01/19 11:51 <JENNYFER DOWNEY - Last Filed: 01/01/19 22:06> - Re-evaluation Re-evalutation: Patient seen and examined, vital signs reviewed. Medical screening testing was ordered including bloodwork, EKG, and toxicology. Results of testing were reviewed. Testing demonstrated unremarkable work-up, her drug tox screen was positive for barbiturates, unclear on why this is positive, possible false positive testing, as patient has not been taking barbiturate, and not on her prescription medication list, however patient's not showing signs of barbiturate intoxication, nor she is demonstrating signs of barbiturate withdrawal. Patient has been stable from a hemodynamic standpoint. At this point I feel that the patient is medically cleared and can be further evaluated from a psychiatric standpoint for final disposition from the emergency department. Patient updated on plan of care. Plan of care was discussed with the behavioral health team, and they felt that the patient was stable for discharge, and not an active threat to herself or others, which I did agree with, we did trial the patient with a dose of Zyprexa in the ED which has been prescribed for her in the past, she did feel improved a fter this treatment, therefore will prescribe her 5 days worth, of Zyprexa 2.5 mg in the morning, and 5 mg in the evening, patient was agreeable to this plan of care and will follow-up with appropriate resources. Laboratory 01/01/19 01/01/19 01/01/19 11:51 11:51 11:51 WBC 3.9 L RBC 4.52 Hgb 13.1 Hct 39.8 MCV 88 MCH 28.9 MCHC 32.8 RDW 13.7 Plt Count 306 Seg Neutrophils % 69.8 Lymphocytes % 15.6 Monocytes % 13.1 H Eosinophils % 0.7 Basophils % 0.8 Absolute Neutrophils 2.7 Absolute Lymphocytes 0.6 Absolute Monocytes 0.5 Absolute Eosinophils 0.0 Absolute Basophils 0.0 Sodium 140.0 Potassium 4.1 Chloride 99 Carbon Dioxide 30 Anion Gap 11 BUN 4 L Creatinine 0.50 L Est GFR ( Amer) > 60 Est GFR (Non-Af Amer) > 60 Glucose 86 Calcium 9.8 Total Bilirubin 0.5 Direct Bilirubin 0.2 Neonat Total Bilirubin Not Reportable Neonat Direct Bilirubin Not Reportable Neonat Indirect Bili Not Reportable AST 26 ALT 44 Alkaline Phosphatase 65 Total Protein 7.7 Albumin 4.4 TSH 0.71 Urine Color Urine Appearance Urine pH Ur Specific [place] Urine Protein Urine Glucose (UA) Urine Ketones Urine Blood Urine Nitrite Urine Bilirubin Urine Urobilinogen Ur Leukocyte Esterase Urine WBC (Auto) Urine RBC (Auto) Squamous Epi Cells Auto Urine Mucus (Auto) Urine Ascorbic Acid Urine HCG, Qual Urine Opiates Screen Urine Methadone Screen Ur Barbiturates Screen Ur Phencyclidine Scrn Ur Amphetamines Screen U Benzodiazepines Scrn Urine Cocaine Screen U Marijuana (THC) Screen Serum Alcohol < 10 01/01/19 01/01/19 11:51 11:51 WBC RBC Hgb Hct MCV MCH MCHC RDW Plt Count Seg Neutrophils % Lymphocytes % Monocytes % Eosinophils % Basophils % Absolute Neutrophils Absolute Lymphocytes Absolute Monocytes Absolute Eosinophils Absolute Basophils Sodium Potassium Chloride Carbon Dioxide Anion Gap BUN Creatinine Est GFR ( Amer) Est GFR (Non-Af Amer) Glucose Calcium Total Bilirubin Direct Bilirubin Neonat Total Bilirubin Neonat Direct Bilirubin Neonat Indirect Bili AST ALT Alkaline Phosphatase Total Protein Albumin TSH Urine Color COLORLESS Urine Appearance CLEAR Urine pH 7.0 Ur Specific [place] 1.002 Urine Protein NEGATIVE Urine Glucose (UA) NEGATIVE Urine Ketones NEGATIVE Urine Blood SMALL H Urine Nitrite NEGATIVE Urine Bilirubin NEGATIVE Urine Urobilinogen NEGATIVE Ur Leukocyte Esterase NEGATIVE Urine WBC (Auto) 1 Urine RBC (Auto) 2 Squamous Epi Cells Auto 4 Urine Mucus (Auto) RARE Urine Ascorbic Acid NEGATIVE Urine HCG, Qual NEGATIVE Urine Opiates Screen NEGATIVE Urine Methadone Screen NEGATIVE Ur Barbiturates Screen UNCONFIRMED POSITIVE Ur Phencyclidine Scrn NEGATIVE Ur Amphetamines Screen NEGATIVE U Benzodiazepines Scrn NEGATIVE Urine Cocaine Screen NEGATIVE U Marijuana (THC) Screen NEGATIVE Serum Alcohol (JENNYFER DOWNEY) - Vital Signs Vital signs: Temp Pulse Resp BP Pulse Ox 98.4 F 84 20 151/96 H 100 01/01/19 17:07 01/01/19 17:07 01/01/19 17:07 01/01/19 17:07 01/01/19 17:07 - Laboratory Laboratory results interpreted by me: 01/01/19 01/01/19 01/01/19 11:51 11:51 11:51 WBC 3.9 L Monocytes % 13.1 H BUN 4 L Creatinine 0.50 L Urine Blood SMALL H Discharge <LYNNETTE WEST - Last Filed: 01/01/19 16:53> <JENNYFER DOWNEY - Last Filed: 01/01/19 22:06> - Discharge Clinical Impression: Suicidal ideation Condition: Stable Disposition: HOME, SELF-CARE Additional Instructions: You have been evaluated by both medical and behavioral health teams and have been deemed appropriate for discharge. You have been provided a dose of your previously prescribed medication of zyprexa 5mg. You received prescriptions for these on 12/22/2018; you are highly encouraged fill and take these medications to help stabilize your mood. You are recommended to follow up with your outpatient mental health provider, MUKUND tomorrow for your continued services. DEPRESSION: Your evaluation reveals that you have mental depression. While symptoms may be vague, they often include disturbance of sleep, fatigue, loss of appetite, and general loss of interest in life. While depression may be a side effect of drugs, or a reaction to a major change in your life, many cases have no known cause. If depression is acute, and related to a major loss in your life, you can expect it to clear completely with time. If you have been depressed a long time, are prone to repeated bouts of depression or low mood, or have been think ing of suicide, get help. Depression can be treated with anti-depressant medication and counselling. Long-term depression will often take a few weeks to clear, even with appropriate medication. Follow-up care is important. SUICIDAL IDEATION: Suicidal ideation is a common medical term for thoughts about suicide, which may be as detailed as a formulated plan, without the suicidal act itself. Although most people who undergo suicidal ideation do not commit suicide, some go on to make suicide attempts. The range of suicidal ideation varies greatly from fleeting to detailed planning, role playing, and unsuccessful attempts. While thoughts about suicide are common, most people do not carry out serious actions to commit suicide. Based upon your evaluation and discussion with you, we do not believe you are currently at risk to act upon your thoughts of suicide. You have agreed to return to the Emergency Department, at any time, if you feel inclined to act upon your suicidal thoughts. FOLLOW-UP CARE: If you have been referred to a physician for follow-up care, call the physicians office for an appointment as you were instructed or within the next two days. If you experience worsening or a significant change in your symptoms, notify the physician immediately or return to the Emergency Department at any time for re-evaluation. Prescriptions: Olanzapine [Zyprexa 2.5 Mg Tablet] 2.5 mg PO BID #15 tablet Referrals: OPAL BRASWELL MD [ACTIVE STAFF] - Follow up as needed [facility] [Outside] - Follow up tomorrow
[2019-01-01] MEDS ORDERED: OLANZAPINE 5 MG TABLET PO ONE (16:33)
[2019-01-01 17:09] VITALS: BP 151/96
--- NOTE | 2019-01-12 15:12 | PSYCHOLOGICAL NOTE ---
Psych Note - Psych Note Date seen by psych provider: 01/01/19 Time seen by psych provider: 13:40 Psych Note: Reason for Consult: Suicidal ideation Patient is a 38-year-old female with history of depression and anxiety that presents to the emergency department for chief complaint of dizziness, and suicidal ideations. Patient reports that she has not been feeling well and had been starting to think of everything over the last 2 weeks. She states she is feeling "too bad in the house... Feeling lost and spaced out." She disclosed that she had thoughts of just cutting herself. She was able to clarify that that meant to relieve her emotions because she is trying to focus in it so difficult. She confirms she is never done that before but because she thought about it she thought she needed to come to the hospital. She reports that she does not feel right upon waking and that she is shakes "million miles a minute." Patient states "I just need a day to get away because I am disorientated and out of it." Patient states that tomorrow her brother will be picking her up and she is going to go to [place] to live with him. Patient is alert and orientated to person, place, time and circumstance. Mood is euthymic with congruent affect. No psychomotor agitation is noted. Patient discloses thoughts of wanting to cut herself to release of emotion. Denies intent at killing herself. Patient did not engage in cutting. Patient denies suicidal homicidal ideation. Delusions are absent behaviors congruent with an intact reality based presentation i.e. organized and linear thought process. Eye contact is poor as patient is wearing sunglasses that she will not remove. Conversational speech is within normal rate, tone and prosody. Intellectual abilities appear to be within the average range. Attention and concentration are fair. Insight, judgment, impulse control are fair. 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 Patient does not meet IVC criteria per [place] GS 122C. Patient is well-known to this clinician and department. She has come in frequently after having an argument with her parents. 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 Clinician has provided psychoeducation on multiple visits and today discussed the concern that the patient is using emergency services as a form of coping to get away from her parents. Patient again discussed the symptoms of withdrawal which includes both physical and psychological. Patient reports that she plans to move to [place] and stay with her brother. Patient was highly encouraged to follow through with substance abuse treatment upon arrival to [place] or continue her services locally if she does not leave. Dr. Mcdowell was consulted and the care management of this patient; attending physicians in agreement with rec ommendations and disposition per
== END 2019-01-01 17:24 | disposition home or self-care (01) ==
LOC: ER 11:01
DX: R45.851 Suicidal ideations (principal); R42 Dizziness and giddiness; I10 Essential (primary) hypertension; Z87.891 Personal history of nicotine dependence; Z88.8 Allergy status to other drugs, medicaments and biological substances
CPT/HCPCS: 36415; 80053; 80307; 81001; 81025; 84443; 85025; 99284

== ENCOUNTER 2019-01-18 08:56 | Emergency (ER) | payer SELFPAY ==
[2019-01-18 09:01] VITALS: BP 145/96
--- NOTE | 2019-01-18 09:30 | ER Document Report ---
ED Medical Screen (RME) - General Chief Complaint: Suicidal Ideation Stated Complaint: PSYCH EVAL Time Seen by Provider: 01/18/19 09:20 Mode of Arrival: Ambulatory Information source: Patient Notes: Patient presents to the emergency department with her daughter with reports of suicidal ideations this morning. Patient reports she quit taking clonazepam approximately 30 days ago. Reports she was on it for 5 years. She went off it because her family asked her to. She reports this morning she had suicidal ideations. Reports history of suicide attempt. Also complains that she has a lot of pressure in the head is very forgetful. Patient is calm. I have greeted and performed a rapid initial assessment of this patient. A comprehensive ED assessment and evaluation of the patient, analysis of test results and completion of the medical decision making process will be conducted by additional ED providers. Dictation of this chart was performed using voice recognition software; therefore, there may be some unintended grammatical errors. TRAVEL OUTSIDE OF THE [place] IN LAST 30 DAYS: No - Related Data Allergies/Adverse Reactions: promethazine [From Phenergan] Allergy (Verified 01/18/19 09:00) metoclopramide [From Reglan] Adverse Reaction (Verified 01/18/19 09:00) Past Medical History - Past Medical History Cardiac Medical History: Reports: Hx Hypertension - Not on-any medications Neurological Medical History: Denies: Hx Migraine, Hx Seizures Renal/ Medical History: Reports: Hx Ovarian Cysts. Denies: Hx Peritoneal Dialysis GI Medical History: Reports: Hx Colonoscopy Musculoskeltal Medical History: Reports Hx Musculoskeletal Deformity, Reports Hx Musculoskeletal Trauma Psychiatric Medical History: Reports: Hx Anxiety, Hx Depression Past Surgical History: Reports: Hx Tubal Ligation - Immunizations Immunizations up to date: Yes Hx Diphtheria, Pertussis, Tetanus Vaccination: Yes Physical Exam - Vital signs Vitals: Temp Pulse Resp BP Pulse Ox 98.2 F 106 H 16 145/96 H 99 01/18/19 09:00 01/18/19 09:00 01/18/19 09:00 01/18/19 09:00 01/18/19 09:00 Course - Vital Signs Vital signs: Temp Pulse Resp BP Pulse Ox 98.2 F 106 H 16 145/96 H 99 01/18/19 09:00 01/18/19 09:00 01/18/19 09:00 01/18/19 09:00 01/18/19 09:00
--- NOTE | 2019-01-18 10:02 | ER Document Report ---
ED Psych Disorder / Suicide <PILAR LOWE - Last Filed: 01/18/19 11:57> - General Mode of Arrival: Ambulatory TRAVEL OUTSIDE OF THE [place] IN LAST 30 DAYS: No <FLAQUITO ARANGO - Last Filed: 01/18/19 15:00> - General Chief Complaint: Suicidal Ideation Stated Complaint: PSYCH EVAL Time Seen by Provider: 01/18/19 09:20 Primary Care Provider: [facility] [Outside] - Follow up as needed [facility] [Outside] - 01/19/19 8:00 am Notes: Patient says that she is feeling "hard-core feeling bad". Says she is having dizziness and having thoughts of harming herself. Says that she has had depression and been seen here several weeks ago and has also been to [facility]. She has been prescribed medication, but she stopped taking Klonopin and and all other medicines about a month ago. She says that she was raised in a family of 2 parents who told her that she did not need to be taking medicines for her problem so she stopped all of her medicines about a month ago. She is supposed to be taking Klonopin. She says that she feels bad when she wakes up in the morning. Feels like she wants to kill herself. Does not express a plan. She has 2 children, a 17-year-old daughter and a 19-year-old son, whose birthday is tomorrow, who is in college. Patient admits that she is depressed. Patient has a history of hypertension. Takes her father's medications periodically when her blood pressure is up. Patient says she stopped drinking alcohol about 30 days ago and also stopped smoking about that same time. (FLAQUITO ARANGO) - Related Data Allergies/Adverse Reactions: promethazine [From Phenergan] Allergy (Verified 01/18/19 09:00) metoclopramide [From Reglan] Adverse Reaction (Verified 01/18/19 09:00) Past Medical History - General Information source: Patient - Social History Smoking Status: Never Smoker Chew tobacco use (# tins/day): No Frequency of alcohol use: None Drug Abuse: None Family History: Reviewed & Not Pertinent, DM, Hypertension, Malignancy Patient has suicidal ideation: No Patient has homicidal ideation: No - Past Medical History Cardiac Medical History: Reports: Hx Hypertension - Not on-any medications Renal/ Medical History: Reports: Hx Ovarian Cysts GI Medical History: Reports: Hx Colonoscopy Musculoskeletal Medical History: Reports Hx Musculoskeletal Deformity, Reports Hx Musculoskeletal Trauma Psychiatric Medical History: Reports: Hx Anxiety, Hx Depression Past Surgical History: Reports: Hx Tubal Ligation - Immunizations Immunizations up to date: Yes Hx Diphtheria, Pertussis, Tetanus Vaccination: Yes <FLAQUITO ARANGO - Last Filed: 01/18/19 15:00> Review of Systems <FLAQUITO ARANGO - Last Filed: 01/18/19 15:00> - Review of Systems Notes: REVIEW OF SYSTEMS: CONSTITUTIONAL : Denies fever. EENT: Denies eye, ear, nose or mouth or throat pain or other symptoms. CARDIOVASCULAR: Has occasional chest pain. RESPIRATORY: Denies cough, chest congestion, or shortness of breath. GASTROINTESTINAL: Denies abdominal pain or nausea, vomiting, or diarrhea. GENITOURINARY: Denies difficulty or painful urinating, urinary frequency, blood in urine. MUSCULOSKELETAL: Denies back or neck pain. Denies joint pain or swelling. SKIN: Denies rash or skin lesions. NEUROLOGICAL: Denies LOC or altered mental status. Denies headache. Denies sensory loss or motor deficits. Psychiatric: Depressed. See HPI. ALL OTHER SYSTEMS REVIEWED AND NEGATIVE. (FLAQUITO ARANGO) Physical Exam - Vital signs Interpretation: Tachycardic - Minimal <FLAQUITO ARANGO - Last Filed: 01/18/19 15:00> - Vital signs Vitals: Temp Pulse Resp BP Pulse Ox 98.2 F 106 H 16 145/96 H 99 01/18/19 09:00 01/18/19 09:00 01/18/19 09:00 01/18/19 09:00 01/18/19 09:00 Notes: PHYSICAL EXAMINATION: GENERAL: Well-appearing, in no acute distress. Appears to be sad. Near tears. HEAD: Atraumatic, normocephalic. EYES: Pupils equal round and reactive to light, extraocular movements intact. ENT: oropharynx clear without exudates. Moist mucous membranes. NECK: Normal range of motion, supple. LUNGS: Breath sounds clear and equal bilaterally. HEART: Regular rate and rhythm without murmurs. ABDOMEN: Soft, nontender. No guarding or rebound. No masses. BACK: No tenderness throughout entire back. EXTREMITIES: Normal range of motion without pain. NEUROLOGICAL: Normal speech, normal gait. Normal sensory, motor, and reflex exams. Awake, alert, and oriented x3. Cranial nerves normal. PSYCH: Sad and depressed. SKIN: Warm, dry, no rashes. (FLAQUITO ARANGO) Course - Laboratory Result Diagrams: 01/18/19 09:42 01/18/19 09:42 <PILAR LOWE - Last Filed: 01/18/19 11:57> - Laboratory Result Diagrams: 01/18/19 09:42 01/18/19 09:42 - EKG Interpretation by Ct EKG shows normal: Sinus rhythm Rate: Normal Rhythm: NSR <FLAQUITO ARANGO - Last Filed: 01/18/19 15:00> - Re-evaluation Re-evalutation: 01/18/19 10:04 Routine lab studies will be ordered. Consultation with mental health has been requested. Patient was evaluated by mental health and felt to be able to be discharged to be followed as an outpatient. See their notes. (FLAQUITO ARANGO) - Vital Signs Vital signs: Temp Pulse Resp BP Pulse Ox 98.2 F 106 H 16 145/96 H 99 01/18/19 09:00 01/18/19 09:00 01/18/19 09:00 01/18/19 09:00 01/18/19 09:00 - Laboratory Laboratory results interpreted by md: 01/18/19 01/18/19 09:42 09:42 BUN 4 L Urine Blood MODERATE H Salicylates < 1.0 L Acetaminophen < 10 L - EKG Interpretation by Me Additional EKG results interpreted by md: 01/18/19 10:05 [address] No ST elevations. (FLAQUITO ARANGO) Discharge <PILAR LOWE - Last Filed: 01/18/19 11:57> <FLAQUITO ARANGO - Last Filed: 01/18/19 15:00> - Discharge Clinical Impression: Suicidal ideation, Depression Condition: Stable Disposition: HOME, SELF-CARE Additional Instructions: You have been evaluated by both medical and behavioral health providers while in the emergency department. You have been cleared from both acute medical and psychiatric services. You have been seen 4 times in the past month for similar complaints (increased depression, suicidal ideation) which is felt to be a result of coming off Klonopin (last month) you had been prescribed for 5 years. At first it was felt to be withdrawal symptoms. Now your body needs to adjust to functioning without it. Often times depression, anxiety, mood lability and suicidal ideation are issues that need to be addressed when your body is adjusting. You should take the medications you have received prescriptions for: Zyprexa 2.5MG in the morning, Zyprexa 5MG at night and Buspar 5MG twice a day to aid in managing these symptoms listed. You must take them daily as prescribed. It is also important to establish a relationship with an outpatient medication provider for ongoing care. You stated you have gone to [facility]. You should continue there, do the groups they require once a month, then you can see the medications provider and eventually get into individual therapy. DEPRESSION: Your evaluation reveals that you have mental depression. While symptoms may be vague, they often include disturbance of sleep, fatigue, loss of appetite, and general loss of interest in life. While depression may be a side effect of drugs, or a reaction to a major change in your life, many cases have no known cause. If depression is acute, and related to a major loss in your life, you can expect it to clear completely with time. If you have been depressed a long time, are prone to repeated bouts of depression or low mood, or have been thinking of suicide, get help. Depression can be treated with anti-depressant medication and counselling. Long-term depression will often take a few weeks to clear, even with appropriate medication. Follow-up care is important. SUICIDAL IDEATION: Suicidal ideation is a common medical term for thoughts about suicide, which may be as detailed as a formulated plan, without the suicidal act itself. Although most people who undergo suicidal ideation do not commit suicide, some go on to make suicide attempts. The range of suicidal ideation varies greatly from fleeting to detailed planning, role playing, and unsuccessful attempts. While thoughts about suicide are common, most people do not carry out serious actions to commit suicide. Based upon your evaluation and discussion with you, we do not believe you are currently at risk to act upon your thoughts of suicide. You have agreed to return to the Emergency Department, at any time, if you feel inclined to act upon your suicidal thoughts. FOLLOW-UP CARE: You have been instructed to do a walk in to [facility] tomorrow (01/19/19). You were informed you must attend a group once a month there, then they will schedule you for medication management and eventually allow for individual therapy. You must take your prescribed medications as directed or else they will not be effective. Included your mother in plan of care to be in control of medications and administration. If you experience worsening or a significant change in your symptoms, notify the physician immediately, utilize mobile crisis or return to the Emergency Department at any time for re-evaluation. Prescriptions: Buspirone HCl [Buspar 5 mg Tablet] 1 tab PO BID #28 tab Olanzapine [Zyprexa 2.5 Mg Tablet] 7.5 mg PO DAILY #42 tablet Referrals: [facility] Crisis Team [Outside] - Follow up as needed [facility] [Outside] - 01/19/19 8:00 am
[2019-01-18 10:12] LABS: ABSOLUTE MONOCYTES (AUTO) 0.3 10^3/uL (0.1-1.4); ABSOLUTE NEUT (AUTO) 3.2 10^3/uL (1.7-8.2); BASOPHILS % (AUTO) 0.9 % (0-2); HEMATOCRIT 40.2 % (36.0-47.0); HEMOGLOBIN 13.2 g/dL (12.0-15.5); LYMPHOCYTES % (AUTO) 22.5 % (13-45); MEAN CORPUSCULAR HGB CONC 32.8 g/dL (32.0-36.0); MEAN CORPUSCULAR VOLUME 88 fl (80-97); PLATELET COUNT 328 10^3/uL (150-450); RED BLOOD COUNT 4.56 10^6/uL (3.72-5.28); RED CELL DISTRIBUTION WIDTH 13.8 % (11.5-14.0); SEGMENTED NEUTROPHILS % (AUTO) 68.6 % (42-78); TOTAL CELLS COUNTED % (AUTO) 100 %; WHITE BLOOD COUNT 4.6 10^3/uL (4.0-10.5)
[2019-01-18 10:13] LABS: APPEARANCE,URINE CLEAR; BILIRUBIN,URINE NEGATIVE (NEGATIVE); COLOR,URINE STRAW; GLUCOSE, URINE NEGATIVE (NEGATIVE); KETONES,URINE NEGATIVE (NEGATIVE); LEUKOCYTE ESTERASE,URINE NEGATIVE (NEGATIVE); NITRITE,URINE NEGATIVE (NEGATIVE); PROTEIN,URINE NEGATIVE (NEGATIVE); URINE SPECIFIC GRAVITY 1.004; UROBILINOGEN,URINE NEGATIVE mg/dL (<2.0)
[2019-01-18 10:25] LABS: ALANINE AMINOTRANSFERASE 46 U/L (9-52); ALBUMIN 4.3 g/dL (3.5-5.0); ALKALINE PHOSPHATASE 73 U/L (38-126); ANION GAP 11 (5-19); ASPARTATE AMINO TRANSFERASE 22 U/L (14-36); BILIRUBIN,DIRECT 0.2 mg/dL (0.0-0.4); BILIRUBIN,TOTAL 0.6 mg/dL (0.2-1.3); BLOOD UREA NITROGEN 4 mg/dL (7-20); CALCIUM 9.8 mg/dL (8.4-10.2); CARBON DIOXIDE 30 mmol/L (22-30); CHLORIDE 101 mmol/L (98-107); GLUCOSE 92 mg/dL (75-110); POTASSIUM 3.6 mmol/L (3.6-5.0); SODIUM 141.8 mmol/L (137-145); TOTAL PROTEIN 7.8 g/dL (6.3-8.2)
[2019-01-18 10:28] LABS: URINE AMPHETAMINES SCREEN NEGATIVE; URINE BARBITURATES SCREEN NEGATIVE; URINE BENZODIAZEPINES SCREEN NEGATIVE; URINE COCAINE SCREEN NEGATIVE; URINE MARIJUANA (THC) SCREEN NEGATIVE; URINE METHADONE SCREEN NEGATIVE; URINE PHENCYCLIDINE SCREEN NEGATIVE
[2019-01-18 10:29] LABS: ACETAMINOPHEN < 10 ug/mL (10-30); ALCOHOL < 10 mg/dL (NONE DETECTED); SALICYLATE < 1.0 mg/dL (2.0-20.0)
--- NOTE | 2019-01-18 11:57 | PSYCHOLOGICAL NOTE ---
Psych Note - Psych Note Date seen by psych provider: 01/18/19 Time seen by psych provider: 09:58 - Discussion with attending ED Physician at 0958. Chart review at 1015. Evaluation from [id number]. Contacted Mother at 1205 no anser and then 1308 when she answered. Psych Note: Reason for Consult: Increased Depressions, SI Contact Permissions: Mother/EC Thuy Hopkins [phone] (permission to include in plan but not tell mother everything about why she came to the ED) Patient is a 38 year old female who presented to the ED today as a voluntary walk in with 17 year old daughter for dizziness, increased depression and SI. She stated she "did go to [facility] and completed treatment, they had me on some medications but did not discharge me with any and I have been to [facility]." She identified she was supposed to have an appointment with [facility] Saturday, asked her mother to take her and then didn't go. She stated she thinks the next appointment is 02/14/19. She mentioned she has spoke to the counselor Maris. She reported "I woke up today, went to wash up and almost slipped." She reported "it was just hard core this morning, my body was shaking, my mind was spinning and I felt like I was going to vomit." She further stated "I have days like this." She stated "I try to keep busy with cleaning and everything but then I feel like I am going to collapse and pass out." Patient reported she thought about taking medications this morning but thought about her children. She at first said someone took her medications from her room, said it could be anyone in her family because they don't think she needs any, then when she mentioned she thought about taking medications she mentioned Celexa. She identified her family has been good to her, she is staying with her parents, she does not want to burden them with this all the time and "they don't understand." She identified her brother did visit from [place] but his just had a baby so they are getting settled in. She mentioned her 2 children several times with both medical and behavioral health providers, how she wants to be there for them and provide for them (future/forward/goal oriented thinking). UDS was negative. She informed medical staff she had stopped Klonopin, Alcohol and Cigarettes 30 days ago. Patient was alert and oriented to self, person, place, time and situation. Mood was depressed with mainly flat affect however she did become tearful a couple of times. She denied current SI/HI and talked about being there for her children. She did not appear to be responding to internal stimuli as evidenced by fair eye contact, answering questions appropriately when addressed, staying on topic and carrying on dialogue conversation. Thought processes were slower but still linear. Conversational speech was soft in tone and within normal limits for rate and prosody. Attention and concentration were fair given she was able to have a dialogue conversation and stay on topic. Intellectual abilities are estimated to be average. Insight, judgment and impulse control were fair as evidenced by seeking help when she felt overwhelmed. Chart review revealed patient has been seen 01/01/19, 12/21/16 and 12/17/18 for similar etiology. She had abruptly stopped taking Klonopin after reportedly being on it for [address] Beal then put her back on a lower dose due to withdrawal. She was initially prescribed Celexa and Buspar and instructed to follow up with [facility]. Then on 12/21/18 medications were adjusted to the Zyprexa 2.5MG QAM and 5MG QHS and Buspar 10MG BID, held overnight and discharged the following day (12/22/18) where [facility] accepted her and she was to get there by 1400. Spoke to mother about her being in charge of medications/administration, taking medications daily as directed and following up with outpatient appointment at [facility] for ongoing/regular treatment. She agreed to be in charge of medications and administration. She stated patient had an appointment last week that she rescheduled for tomorrow (01/19/19) afternoon. Mother informed if there is not an appointment scheduled patient should do a walk in tomorrow (01/19/19) morning. 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 Robyn MD., includes: Continue Zyprexa 2.5MG in the morning for mood stabilization/impulse control Continue Zyprexa 5MG at night for mood stabilization/impulse control Continue Buspar but at 5MG twice a day for anxiety/calming effect/nonaddictive/depression/sleep Impression/Plan: Patient is cleared from acute psychiatric services. She presented wanting help for how she was feeling, wanted a night of respite and expressed wanting to take care of her children (hope, future/forward thinking). No observed psychosis. She has been seen 4 times now in the past month for similar etiology following coming off Klonopin she was prescribed for 5 years, that per mother (from 12/21/18 collateral) patient was over using. She has been provided prescriptions and outpatient follow up, as well as [facility] accepted her 12/22/18 and she was to get there by 1400. Patient was psychoeducated on the importance of taking medications as prescribed for effectiveness and follow up care with outpatient providers for ongoing care and management. She was provided with the outpatient MH resource sheet which highlighted [facility] for crisis/talk therapy/linkage and [facility] which documented doing a walk in first thing tomorrow (01/19/19) morning. Contacted mother for plan of care regarding being in control of medications and administration. Mother agreed to provide transportation home. Consulted with Dr. Mcdowell regarding the management and care of patient. ED Physician in agreement with recommendations.
--- NOTE | 2019-01-18 17:45 | EKG REPORT ---
SEVERITY:- NORMAL ECG - SINUS RHYTHM : Confirmed by: Jaime Murillo MD 18-Jan-2019 17:45:19
== END 2019-01-18 13:40 | disposition home or self-care (01) ==
LOC: ER 08:56
DX: F32.9 Major depressive disorder, single episode, unspecified (principal); R45.851 Suicidal ideations; F41.9 Anxiety disorder, unspecified; T42.4X6A Underdosing of benzodiazepines, initial encounter; Z91.128 Patient's intentional underdosing of medication regimen for other reason; Z91.14 Patient's other noncompliance with medication regimen; I10 Essential (primary) hypertension; R42 Dizziness and giddiness; Z88.8 Allergy status to other drugs, medicaments and biological substances
CPT/HCPCS: 36415; 80053; 80307; 81001; 84703; 85025; 93005; 93010; 99285

== ENCOUNTER 2019-02-15 12:11 | Emergency (ER) | payer SELFPAY ==
[2019-02-15 13:27] LABS: ABSOLUTE LYMPHOCYTES (AUTO) 1.1 10^3/uL (0.5-4.7); ABSOLUTE MONOCYTES (AUTO) 0.4 10^3/uL (0.1-1.4); ABSOLUTE NEUT (AUTO) 3.1 10^3/uL (1.7-8.2); BASOPHILS % (AUTO) 0.9 % (0-2); EOSINOPHILS % (AUTO) 0.4 % (0-6); HEMATOCRIT 39.4 % (36.0-47.0); HEMOGLOBIN 13.2 g/dL (12.0-15.5); LYMPHOCYTES % (AUTO) 23.6 % (13-45); MEAN CORPUSCULAR HGB CONC 33.6 g/dL (32.0-36.0); MEAN CORPUSCULAR VOLUME 86 fl (80-97); MONOCYTES % (AUTO) 7.8 % (3-13); PLATELET COUNT 344 10^3/uL (150-450); RED BLOOD COUNT 4.56 10^6/uL (3.72-5.28); RED CELL DISTRIBUTION WIDTH 13.8 % (11.5-14.0); SEGMENTED NEUTROPHILS % (AUTO) 67.3 % (42-78); TOTAL CELLS COUNTED % (AUTO) 100 %; WHITE BLOOD COUNT 4.6 10^3/uL (4.0-10.5)
--- NOTE | 2019-02-15 13:33 | ER Document Report ---
ED Psych Disorder / Suicide - General Chief Complaint: Suicidal Ideation Stated Complaint: PSYCH EVAL/SUICIDAL IDEATION Time Seen by Provider: 02/15/19 13:18 TRAVEL OUTSIDE OF THE [place] IN LAST 30 DAYS: No - HPI Notes: Patient is a 38-year-old female that presents to the emergency department for chief complaint of suicidal ideation. Patient states that she woke up today feeling "amped" and unsettled. She states that she was having a hard time controlling the thoughts of wanting to kill herself. She was thinking about cutting herself. Patient states she was in the bathroom and did not want her daughter to see her upset. She states she tried to go for a walk in the park to calm herself down but continued to feel suicidal. She then called mobile crisis who brought her to the emergency room. Patient reports history of suicidal ideation in the past. She has been previously recommended medications but states she cannot afford them. When she asks her family to assist her in getting medications they refused stating that they do not want her to get addicted. Patient is not currently on any medicines daily. She is tearful and still feels the urge to hurt herself. Past Medical History: Depression Past Surgical History: Reviewed in chart Social History: Viewed in chart Family History: Reviewed and noncontributory for presenting illness Allergies: Reviewed, see documented allergy list. REVIEW OF SYSTEMS: CONSTITUTIONAL : No fever No chills No diaphoresis No recent illness EENT: No vision changes No congestion No sore throat CARDIOVASCULAR: No chest pain No palpitations RESPIRATORY: No shortness of breath No cough No difficulty breathing GASTROINTESTINAL: No abdominal pain No nausea No vomiting No diarrhea GENITOURINARY: No dysuria No hematuria No difficulty urinating MUSCULOSKELETAL: No back pain No leg pain No arm pain SKIN: No rashes No lesions LYMPHATIC: No swollen, enlarged glands. NEUROLOGICAL: No lightheadedness No headache No weakness No paresthesias PSYCHIATRIC: No anxiety depression Suicidal ideation PHYSICAL EXAMINATION: Vital signs reviewed, nursing noted reviewed. GENERAL: Well-appearing, well-nourished and in no acute distress. HEAD: Atraumatic, normocephalic. EYES: Eyes appear normal, extraocular movements intact, sclera anicteric, conjunctiva are normal. ENT: nares patent, oropharynx clear without exudates. Moist mucous membranes. NECK: Normal range of motion, supple without lymphadenopathy LUNGS: Breath sounds clear to auscultation bilaterally and equal. No wheezes rales or rhonchi. HEART: Regular rate and rhythm without murmurs ABDOMEN: Soft, nontender, normoactive bowel sounds. No rebound, guarding, or rigidity. No masses appreciated. EXTREMITIES: Nontender, good range of motion, no pitting or edema. NEUROLOGICAL: No focal neurological deficits. Moves all extremities spontaneously Motor and sensory grossly intact on exam. PSYCH: Flat affect, suicidal, tearful SKIN: Warm, Dry, normal turgor, no rashes or lesions noted on exposed skin - Related Data Allergies/Adverse Reactions: promethazine [From Phenergan] Allergy (Verified 02/15/19 12:11) metoclopramide [From Reglan] Adverse Reaction (Verified 02/15/19 12:11) Past Medical History - Social History Smoking Status: Never Smoker Frequency of alcohol use: None Drug Abuse: None Family History: Reviewed & Not Pertinent, DM, Hypertension, Malignancy Patient has suicidal ideation: Yes Patient has homicidal ideation: No - Past Medical History Cardiac Medical History: Reports: Hx Hypertension - Not on-any medications Neurological Medical History: Denies: Hx Migraine, Hx Seizures Renal/ Medical History: Reports: Hx Ovarian Cysts. Denies: Hx Peritoneal Dialysis GI Medical History: Reports: Hx Colonoscopy Musculoskeletal Medical History: Reports Hx Musculoskeletal Deformity, Reports Hx Musculoskeletal Trauma Psychiatric Medical History: Reports: Hx Anxiety, Hx Depression Past Surgical History: Reports: Hx Tubal Ligation - Immunizations Immunizations up to date: Yes Hx Diphtheria, Pertussis, Tetanus Vaccination: Yes Physical Exam - Vital signs Vitals: Temp Pulse Resp BP Pulse Ox 98.3 F 95 16 144/99 H 98 02/15/19 12:15 02/15/19 12:15 02/15/19 12:15 02/15/19 12:15 02/15/19 12:15 Course - Re-evaluation Re-evalutation: 02/15/19 13:33 Vitals reviewed. Nursing notes reviewed. Patient is tearful during our conversation and still feels the urge to hurt herself. Lab work will be drawn to evaluate for medical clearance. Her EKG shows no acute ectopy or ischemic changes. 02/15/19 13:58 Patient's blood work is unremarkable. Urinalysis has trace leukocytes and some WBCs but also is contaminated with epithelial cells. She has no symptoms to necessitate treatment for acute urinary tract infection. Patient is medically cleared for further psychiatric evaluation. Laboratory 02/15/19 02/15/19 02/15/19 12:52 12:52 12:52 WBC 4.6 RBC 4.56 Hgb 13.2 Hct 39.4 MCV 86 MCH 29.0 MCHC 33.6 RDW 13.8 Plt Count 344 Seg Neutrophils % 67.3 Lymphocytes % 23.6 Monocytes % 7.8 Eosinophils % 0.4 Basophils % 0.9 Absolute Neutrophils 3.1 Absolute Lymphocytes 1.1 Absolute Monocytes 0.4 Absolute Eosinophils 0.0 Absolute Basophils 0.0 Sodium 139.1 Potassium 3.5 L Chloride 100 Carbon Dioxide 30 Anion Gap 9 BUN 5 L Creatinine 0.63 Est GFR ( Amer) > 60 Est GFR (Non-Af Amer) > 60 Glucose 86 Calcium 9.8 Total Bilirubin 0.9 Direct Bilirubin 0.1 Neonat Total Bilirubin Not Reportable Neonat Direct Bilirubin Not Reportable Neonat Indirect Bili Not Reportable AST 18 ALT 27 Alkaline Phosphatase 76 Total Protein 7.8 Albumin 4.5 Serum HCG, Qual NEGATIVE Urine Color Urine Appearance Urine pH Ur Specific [place] Urine Protein Urine Glucose (UA) Urine Ketones Urine Blood Urine Nitrite Urine Bilirubin Urine Urobilinogen Ur Leukocyte Esterase Urine WBC (Auto) Urine RBC (Auto) Urine Bacteria (Auto) Squamous Epi Cells Auto Urine Mucus (Auto) Urine Ascorbic Acid Salicylates < 1.0 L Urine Opiates Screen Urine Methadone Screen Acetaminophen < 10 L Ur Barbiturates Screen Ur Phencyclidine Scrn Ur Amphetamines Screen U Benzodiazepines Scrn Urine Cocaine Screen U Marijuana (THC) Screen Serum Alcohol < 10 02/15/19 02/15/19 13:02 13:02 WBC RBC Hgb Hct MCV MCH MCHC RDW Plt Count Seg Neutrophils % Lymphocytes % Monocytes % Eosinophils % Basophils % Absolute Neutrophils Absolute Lymphocytes Absolute Monocytes Absolute Eosinophils Absolute Basophils Sodium Potassium Chloride Carbon Dioxide Anion Gap BUN Creatinine Est GFR ( Amer) Est GFR (Non-Af Amer) Glucose Calcium Total Bilirubin Direct Bilirubin Neonat Total Bilirubin Neonat Direct Bilirubin Neonat Indirect Bili AST ALT Alkaline Phosphatase Total Protein Albumin Serum HCG, Qual Urine Color YELLOW Urine Appearance SLIGHTLY-CLOUDY Urine pH 7.0 Ur Specific [place] 1.013 Urine Protein NEGATIVE Urine Glucose (UA) NEGATIVE Urine Ketones NEGATIVE Urine Blood SMALL H Urine Nitrite NEGATIVE Urine Bilirubin NEGATIVE Urine Urobilinogen NEGATIVE Ur Leukocyte Esterase SMALL H Urine WBC (Auto) 13 Urine RBC (Auto) 13 Urine Bacteria (Auto) TRACE Squamous Epi Cells Auto 6 Urine Mucus (Auto) RARE Urine Ascorbic Acid 40 H Salicylates Urine Opiates Screen NEGATIVE Urine Methadone Screen NEGATIVE Acetaminophen Ur Barbiturates Screen NEGATIVE Ur Phencyclidine Scrn NEGATIVE Ur Amphetamines Screen NEGATIVE U Benzodiazepines Scrn NEGATIVE Urine Cocaine Screen NEGATIVE U Marijuana (THC) Screen NEGATIVE Serum Alcohol - Vital Signs Vital signs: Temp Pulse Resp BP Pulse Ox 98.3 F 95 16 144/99 H 98 02/15/19 12:15 02/15/19 12:15 02/15/19 12:15 02/15/19 12:15 02/15/19 12:15 - Laboratory Result Diagrams: 02/15/19 12:52 02/15/19 12:52 Laboratory results interpreted by me: 02/15/19 02/15/19 12:52 13:02 Potassium 3.5 L BUN 5 L Urine Blood SMALL H Ur Leukocyte Esterase SMALL H Urine Ascorbic Acid 40 H Salicylates < 1.0 L Acetaminophen < 10 L Discharge - Discharge Clinical Impression: Suicidal ideation Condition: Stable Disposition: PSYCH HOSP/UNIT
[2019-02-15 13:37] LABS: APPEARANCE,URINE SLIGHTLY-CLOUDY; BILIRUBIN,URINE NEGATIVE (NEGATIVE); COLOR,URINE YELLOW; GLUCOSE, URINE NEGATIVE (NEGATIVE); KETONES,URINE NEGATIVE (NEGATIVE); LEUKOCYTE ESTERASE,URINE SMALL (NEGATIVE); NITRITE,URINE NEGATIVE (NEGATIVE); PROTEIN,URINE NEGATIVE (NEGATIVE); URINE SPECIFIC GRAVITY 1.013; UROBILINOGEN,URINE NEGATIVE mg/dL (<2.0)
[2019-02-15 13:45] LABS: URINE AMPHETAMINES SCREEN NEGATIVE; URINE BARBITURATES SCREEN NEGATIVE; URINE BENZODIAZEPINES SCREEN NEGATIVE; URINE COCAINE SCREEN NEGATIVE; URINE MARIJUANA (THC) SCREEN NEGATIVE; URINE METHADONE SCREEN NEGATIVE; URINE PHENCYCLIDINE SCREEN NEGATIVE
[2019-02-15 13:49] LABS: ALANINE AMINOTRANSFERASE 27 U/L (9-52); ALBUMIN 4.5 g/dL (3.5-5.0); ALKALINE PHOSPHATASE 76 U/L (38-126); ANION GAP 9 (5-19); ASPARTATE AMINO TRANSFERASE 18 U/L (14-36); BILIRUBIN,DIRECT 0.1 mg/dL (0.0-0.4); BILIRUBIN,TOTAL 0.9 mg/dL (0.2-1.3); BLOOD UREA NITROGEN 5 mg/dL (7-20); CALCIUM 9.8 mg/dL (8.4-10.2); CARBON DIOXIDE 30 mmol/L (22-30); CHLORIDE 100 mmol/L (98-107); GLUCOSE 86 mg/dL (75-110); POTASSIUM 3.5 mmol/L (3.6-5.0); SODIUM 139.1 mmol/L (137-145); TOTAL PROTEIN 7.8 g/dL (6.3-8.2)
[2019-02-15 13:56] LABS: ACETAMINOPHEN < 10 ug/mL (10-30); ALCOHOL < 10 mg/dL (NONE DETECTED); SALICYLATE < 1.0 mg/dL (2.0-20.0)
--- NOTE | 2019-02-15 15:21 | PSYCHOLOGICAL NOTE ---
Psych Note - Psych Note Date seen by psych provider: 02/15/19 Psych Note: Presenting Problem: [facility] involvement (Dot [phone]) with patient coming to ED Voluntarily, SI with plan to cut self in the bathroom with a knife, decided not to since daughter was home and they went for a walk. She reported she has not been able to fill medications provided from previous ED visits due to lack of finances. She reported she stays in bed all day, has ruminating thoughts of SI, gets dizzy and shaky, has poor sleep and has decreased appetite. 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 Robyn MD., includes: Add Zyprexa 2.5MG in the morning for mood stabilization/impulse control Add Zyprexa 5MG at night for mood stabilization/impulse control/sleep Add Buspar 5MG twice a day for anxiety/calming effect/nonaddictive/depression/sleep Impression/Plan: Recommendation for 24 Hour IVC Petition. Start medications and reassess in the morning. This is patient's 5th visit for psychiatric related issued in the past [address] Mcdowell regarding the management and care of patient. ED Physician in agreement with recommendations.
--- NOTE | 2019-02-15 16:36 | EKG REPORT ---
SEVERITY:- NORMAL ECG - SINUS RHYTHM : Confirmed by: Jaime Murillo MD 15-Feb-2019 16:36:15
[2019-02-15] MEDS: BUSPIRONE HCL 10 MG TABLET PO SCH (17:59)
[2019-02-15] MEDS ORDERED: OLANZAPINE 5 MG TABLET PO SCH (22:00)
[2019-02-16] MEDS ORDERED: OLANZAPINE 2.5 MG TABLET PO SCH (08:00)
[2019-02-16] MEDS: BUSPIRONE HCL 10 MG TABLET PO SCH (09:10)
--- NOTE | 2019-02-16 09:36 | ER Document Report ---
Doctor's Note Notes: 02/16/19 09:35 Patient seen and evaluated. She is resting comfortably. She states she feels better today. She expresses that she does not wish to and would like to go see her daughter who is in room 38 as a patient. She was concerned that her daughter needs her around. She is not actively suicidal currently. She does state that she still had thoughts yesterday of suicidality but does not believe that she would act on these thoughts. She is showing forward thinking and improvement. I am currently awaiting further psychiatric recommendations on this patient
--- NOTE | 2019-02-16 10:00 | PSYCHOLOGICAL NOTE ---
Psych Note - Psych Note Date seen by psych provider: 02/16/19 Psych Note: Presenting Problem: Came with [facility] for SI with thoughts to cut wrist, did not take action, daughter was able to divert attention. She has been seen in the ED 5 times in the last two months at which point she had stopped Klonopin after 5 years. She has not filled any prescriptions provided by the ED. Spoke to Celi from [facility] for care coordination. She stated Obed would likely be the one following up with patient later today. Mother, Thuy, present for another family member medical issues. She stated patient will come home from the hospital, take the medications for a week, stop and then she reports symptoms. She agreed to be in charge of medications and administration. She was made aware [facility] would be contacting patient later today for linkage to outpatient services. Diagnosis: SI 304.10 (F13.20) Anxiolytic Use Disorder, Severe, Dependence (Hx prolonged Klonopin Use with discontinue a couple months ago after abrupt stop) 300.00 (F41.9) Unspecified Anxiety Related Disorder (may be related to benzo withdrawal) 311 (F32.9) Unspecified Depressive Disorder (may be related to benzo withdrawal) Impression/Plan: Patient is cleared from acute psychiatric services. Recommendation to rescind 24 Hour IVC Petition. She stated she feels so-so, better today than yesterday. [facility] contacted (Spoke to Celi, Obed will likely be doing follow up today) for continuity of care and outpatient follow up care. Patient's mother and daughter on site for family medical and able to provide transportation. Spoke to mother and with patient's verbal consent included her in plan of care. Mother agreed to be in control of medications and administration. Consulted with Dr. Mcdowell regarding the management and care of patient. ED Physician in agreement with recommendations.
[2019-02-16 10:32] VITALS: BP 149/94
== END 2019-02-16 10:32 | disposition home or self-care (01) ==
LOC: ER 12:11
DX: R45.851 Suicidal ideations (principal); F32.9 Major depressive disorder, single episode, unspecified; I10 Essential (primary) hypertension; Z88.8 Allergy status to other drugs, medicaments and biological substances
CPT/HCPCS: 93005; 99285; 36415; 80307 ×4; 84703; 85025; 80053; 81001; 93010; J3490

== ENCOUNTER 2019-03-09 10:14 | Emergency (ER) | payer SELFPAY ==
--- NOTE | 2019-03-09 10:32 | ER Document Report ---
ED Medical Screen (RME) - General Chief Complaint: Suicidal Ideation Stated Complaint: PSYCH EVAL Time Seen by Provider: 03/09/19 10:28 Mode of Arrival: Ambulatory Information source: Patient Notes: 38-year-old female presented to ED for complaint of thoughts of suicide this morning. She states she took a knife and went to the she had to cut herself but changed her mind and called integrative services. Placed came to the house as well as integrative services. The mobile crisis person brought her to the emergency room for IVC. She states she has a history of anxiety and depression. She also has a bilateral tubal ligation. She states she is thought of suicide before but not as bad as she was this morning. Patient is alert and oriented respirations regular and unlabored speaking in full sentences walks with even steady gait. I have greeted and performed a rapid initial assessment of this patient. A comprehensive ED assessment and evaluation of the patient, analysis of test results and completion of medical decision making process will be conducted by an additional ED providers. Dictation of this chart was performed using voice recognition software; therefore, there may be some unintended grammatical errors. TRAVEL OUTSIDE OF THE [place] IN LAST 30 DAYS: No - Related Data Allergies/Adverse Reactions: promethazine [From Phenergan] Allergy (Verified 03/09/19 10:19) metoclopramide [From Reglan] Adverse Reaction (Verified 03/09/19 10:19) Past Medical History - Past Medical History Cardiac Medical History: Reports: Hx Hypertension - Not on-any medications Neurological Medical History: Denies: Hx Migraine, Hx Seizures Renal/ Medical History: Reports: Hx Ovarian Cysts. Denies: Hx Peritoneal Dialysis GI Medical History: Reports: Hx Colonoscopy Musculoskeltal Medical History: Reports Hx Musculoskeletal Deformity, Reports Hx Musculoskeletal Trauma Psychiatric Medical History: Reports: Hx Anxiety, Hx Depression Past Surgical History: Reports: Hx Tubal Ligation - Immunizations Immunizations up to date: Yes Hx Diphtheria, Pertussis, Tetanus Vaccination: Yes Physical Exam - Vital signs Vitals: Temp Pulse Resp BP Pulse Ox 98.1 F 102 H 16 132/95 H 100 03/09/19 10:29 03/09/19 10:29 03/09/19 10:29 03/09/19 10:29 03/09/19 10:29 Course - Vital Signs Vital signs: Temp Pulse Resp BP Pulse Ox 98.1 F 102 H 16 132/95 H 100 03/09/19 10:29 03/09/19 10:29 03/09/19 10:29 03/09/19 10:29 03/09/19 10:29
[2019-03-09 10:57] LABS: ABSOLUTE LYMPHOCYTES (AUTO) 0.9 10^3/uL (0.5-4.7); ABSOLUTE MONOCYTES (AUTO) 0.4 10^3/uL (0.1-1.4); ABSOLUTE NEUT (AUTO) 4.2 10^3/uL (1.7-8.2); BASOPHILS % (AUTO) 0.8 % (0-2); EOSINOPHILS % (AUTO) 0.2 % (0-6); HEMATOCRIT 42.4 % (36.0-47.0); LYMPHOCYTES % (AUTO) 15.7 % (13-45); MEAN CORPUSCULAR HEMOGLOBIN 28.7 pg (27.0-33.4); MEAN CORPUSCULAR VOLUME 87 fl (80-97); MONOCYTES % (AUTO) 7.6 % (3-13); PLATELET COUNT 331 10^3/uL (150-450); RED BLOOD COUNT 4.88 10^6/uL (3.72-5.28); SEGMENTED NEUTROPHILS % (AUTO) 75.7 % (42-78); TOTAL CELLS COUNTED % (AUTO) 100 %; WHITE BLOOD COUNT 5.5 10^3/uL (4.0-10.5)
[2019-03-09 11:19] LABS: APPEARANCE,URINE CLEAR; BILIRUBIN,URINE NEGATIVE (NEGATIVE); COLOR,URINE PINK; GLUCOSE, URINE NEGATIVE (NEGATIVE); KETONES,URINE NEGATIVE (NEGATIVE); PROTEIN,URINE 100 mg/dL (NEGATIVE); URINE SPECIFIC GRAVITY 1.002; UROBILINOGEN,URINE NEGATIVE mg/dL (<2.0)
[2019-03-09 11:20] LABS: ADD MANUAL MICROSCOPIC YES; BACTERIA,URINE TRACE /HPF; LEUKOCYTE ESTERASE,URINE TRACE (NEGATIVE); NITRITE,URINE NEGATIVE (NEGATIVE); RBC,URINE TOO NUMEROUS TO CNT /HPF
[2019-03-09 11:23] LABS: ALANINE AMINOTRANSFERASE 26 U/L (9-52); ALBUMIN 4.8 g/dL (3.5-5.0); ALKALINE PHOSPHATASE 85 U/L (38-126); ANION GAP 11 (5-19); ASPARTATE AMINO TRANSFERASE 20 U/L (14-36); BILIRUBIN,DIRECT 0.3 mg/dL (0.0-0.4); BILIRUBIN,TOTAL 1.2 mg/dL (0.2-1.3); BLOOD UREA NITROGEN 6 mg/dL (7-20); CALCIUM 9.8 mg/dL (8.4-10.2); CARBON DIOXIDE 30 mmol/L (22-30); CHLORIDE 98 mmol/L (98-107); GLUCOSE 98 mg/dL (75-110); POTASSIUM 4.1 mmol/L (3.6-5.0); SODIUM 138.6 mmol/L (137-145); TOTAL PROTEIN 8.3 g/dL (6.3-8.2)
[2019-03-09 11:25] LABS: ACETAMINOPHEN < 10 ug/mL (10-30); ALCOHOL < 10 mg/dL (NONE DETECTED); SALICYLATE < 1.0 mg/dL (2.0-20.0)
[2019-03-09 11:31] LABS: URINE AMPHETAMINES SCREEN NEGATIVE; URINE BARBITURATES SCREEN NEGATIVE; URINE BENZODIAZEPINES SCREEN NEGATIVE; URINE COCAINE SCREEN NEGATIVE; URINE MARIJUANA (THC) SCREEN NEGATIVE; URINE METHADONE SCREEN NEGATIVE; URINE PHENCYCLIDINE SCREEN NEGATIVE
--- NOTE | 2019-03-09 14:16 | ER Document Report ---
ED General <COREYSEAPILAR - Last Filed: 03/09/19 14:16> - General Mode of Arrival: Ambulatory TRAVEL OUTSIDE OF THE [place] IN LAST 30 DAYS: No <JOAQUIM CHURCHILL - Last Filed: 03/09/19 14:32> - General Chief Complaint: Suicidal Ideation Stated Complaint: PSYCH EVAL Time Seen by Provider: 03/09/19 10:28 Primary Care Provider: [facility] [Outside] - 03/09/19 - HPI Notes: Patient is a 38-year-old female with a long-standing history of depression who presents to the emergency department for evaluation of increased suicidal thoughts. She states she was thinking about cutting herself. She put her self into a shed with a knife. At that point she called the police, and they brought her here for further evaluation. The patient denies any homicidal ideation. She denies any visual or auditory hallucination. She states currently she is not going to therapy, not taking any medications. I asked her why, she states "my family tells me not to." (JOAQUIM CHURCHILL) - Related Data Allergies/Adverse Reactions: promethazine [From Phenergan] Allergy (Verified 03/09/19 10:19) metoclopramide [From Reglan] Adverse Reaction (Verified 03/09/19 10:19) Past Medical History - General Information source: Patient - Social History Smoking Status: Unknown if Ever Smoked Family History: Reviewed & Not Pertinent, DM, Hypertension, Malignancy Patient has suicidal ideation: Yes Patient has homicidal ideation: No - Past Medical History Cardiac Medical History: Reports: Hx Hypertension - Not on-any medications Neurological Medical History: Denies: Hx Migraine, Hx Seizures Renal/ Medical History: Reports: Hx Ovarian Cysts. Denies: Hx Peritoneal Dialysis GI Medical History: Reports: Hx Colonoscopy Musculoskeletal Medical History: Reports Hx Musculoskeletal Deformity, Reports Hx Musculoskeletal Trauma Psychiatric Medical History: Reports: Hx Anxiety, Hx Depression Past Surgical History: Reports: Hx Tubal Ligation - Immunizations Immunizations up to date: Yes Hx Diphtheria, Pertussis, Tetanus Vaccination: Yes <JOAQUIM CHURCHILL - Last Filed: 03/09/19 14:32> Review of Systems - Review of Systems Constitutional: No symptoms reported EENT: No symptoms reported Cardiovascular: No symptoms reported Respiratory: No symptoms reported Gastrointestinal: No symptoms reported Genitourinary: No symptoms reported Musculoskeletal: No symptoms reported Skin: No symptoms reported Neurological/Psychological: No symptoms reported <JOAQUIM CHURCHILL - Last Filed: 03/09/19 14:32> Physical Exam <JOAQUIM CHURCHILL - Last Filed: 03/09/19 14:32> - Vital signs Vitals: Temp Pulse Resp BP Pulse Ox 98.1 F 102 H 16 132/95 H 100 03/09/19 10:29 03/09/19 10:29 03/09/19 10:03/09/19 10:03/09/19 10:29 - Notes Notes: Vital signs reviewed, please refer to chart. Head is normocephalic, atraumatic. Pupils equal round, reactive to light. Neck is supple without meningismus. Heart is regular rate and rhythm. Lungs are clear to auscultation bilaterally. Abdomen is soft, nontender, normoactive bowel sounds throughout. Extremities without cyanosis, clubbing. Posterior calves are nontender. Peripheral pulses are equal. Skin is warm and dry. Patient is awake, alert, neurological exam is nonfocal. She is cooperative, normal hygiene, makes good eye contact. (JOAQUIM CHURCHILL) Course - Laboratory Result Diagrams: 03/09/19 10:38 03/09/19 10:38 <PILAR LOWE - Last Filed: 03/09/19 14:16> - Laboratory Result Diagrams: 03/09/19 10:38 03/09/19 10:38 <JOAQUIM CHURCHILL - Last Filed: 03/09/19 14:32> - Re-evaluation Re-evalutation: 03/09/19 14:15 Patient presents to the emergency department for evaluation. She states she has increased suicidal thoughts. She is actually had 6 visits in the last several months with same concern. She never follows up. She is not taking medications. The importance of following through with medications and recommendations was stressed to the patient. Psychiatric evaluation was performed. They do believe this patient is stable. She will be discharged to the care of the mobile crisis unit. (JOAQUIM CHURCHILL) - Vital Signs Vital signs: Temp Pulse Resp BP Pulse Ox 98.1 F 102 H 16 132/95 H 100 03/09/19 10:29 03/09/19 10:29 03/09/19 10:29 03/09/19 10:29 03/09/19 10:29 - Laboratory Laboratory results interpreted by me: 03/09/19 03/09/19 10:38 10:38 BUN 6 L Total Protein 8.3 H Urine Protein 100 H Urine Blood LARGE H Ur Leukocyte Esterase TRACE H Salicylates < 1.0 L Acetaminophen < 10 L - EKG Interpretation by Me Additional EKG results interpreted by me: 03/09/19 14:14 Sinus tachycardia with a rate of 103 bpm. Normal axis and intervals, no acute ST changes concerning for ischemia or infarction. (JOAQUIM CHURCHILL) Discharge <PILAR LOWE - Last Filed: 03/09/19 14:16> <JOAQUIM CHURCHILL - Last Filed: 03/09/19 14:32> - Discharge Clinical Impression: Suicidal ideation, Nonadherence to medication, Nonadherence to medical treatment, Bipolar disorder, unspecified Condition: Stable Disposition: HOME, SELF-CARE Additional Instructions: You have been evaluated by both medical and behavioral health providers while in the emergency department. You have been cleared from both acute medical and psy chiatric services. [facility] is meeting you at discharge for safety planning and linkage to outpatient mental health support. Medication management and therapy combined are effective treatments for suicidal ideation and Bipolar Disorder. Bipolar Disorder Bipolar disorder is also called manic-depressive disorder. Depression alternates with brain hyperactivity called don. Each phase lasts from several days to a few weeks. We don't know exactly what causes bipolar disorder, but it's treatable. During the "manic phase," you may feel elated and energetic. You may have racing thoughts, rapid speech, increased activity, and grandiose ideas. During this time, you may not realize how poor your judgement is. Inappropriate spending, drug abuse, excessive alcohol use, marriage problems, and irresponsible sexual behavior are common during the manic phase. During the "depressive phase," you might feel depressed, guilty, worthless, fatigued, and unable to concentrate. You might have thoughts of suicide. Good treatments are available for bipolar disorder. Rossford is a classic drug for bipolar disorder, and is still often useful. If the manic phase is very mild, an antidepressant alone can be prescribed. If the manic phase is very severe, an antipsychotic medicine (such as Haldol) may be needed. The treatment must be matched to your symptoms, so it's important to work closely with your psychiatric care provider. Contact your physician, the hospital emergency center, crisis line, or your counsellor if you are losing control or having self-destructive thoughts. SUICIDAL IDEATION: Suicidal ideation is a common medical term for thoughts about suicide, which may be as detailed as a formulated plan, without the suicidal act itself. Although most people who undergo suicidal ideation do not commit suicide, some go on to make suicide attempts. The range of suicidal ideation varies greatly from fleeting to detailed planning, role playing, and unsuccessful attempts. While thoughts about suicide are common, most people do not carry out serious actions to commit suicide. Based upon your evaluation and discussion with you, we do not believe you are currently at risk to act upon your thoughts of suicide. You have agreed to return to the Emergency Department, at any time, if you feel inclined to act upon your suicidal thoughts. FOLLOW-UP CARE: [facility] Crisis is involved and picking you up at discharge. You are recommended to allow them to link you to outpatient metal health services (medication management and therapy). If you experience worsening or a significant change in your symptoms, notify the physician immediately, utilize mobile crisis or return to the Emergency Department at any time for re-evaluation. Referrals: [facility] [Outside] - 03/09/19
[2019-03-09 14:44] VITALS: BP 150/73
--- NOTE | 2019-03-09 19:26 | EKG REPORT ---
SEVERITY:- ABNORMAL ECG - SINUS TACHYCARDIA CONSIDER LEFT VENTRICULAR HYPERTROPHY : Confirmed by: Jazzmine Jane MD 09-Mar-2019 19:25:41
--- NOTE | 2019-03-10 06:33 | PSYCHOLOGICAL NOTE ---
Psych Note - Psych Note Date seen by psych provider: 03/09/19 Time seen by psych provider: 10:00 - [facility] Collateral at 1000 and carre coordination at [phone]. [id number] Greeting with patient. Evaluation from [id number]. Psych Note: Presenting Problem: [facility] (Celi provided collateral) involvement, SI. Patient reported she grabbed a knife and went to the shed this morning. She did not take action. She called [facility]. They called LE. Patient has been seen by [facility] 5 times now since December 2018 for anxiety/SI issues. She had previously been on Klonopin for 5 years, abruptly stopped, then her PCM put her back on a lower dose after finding out she abruptly stopped (all around or before the December time frame). Each time she has been to [facility] she has been provided prescriptions (unless she still has some from a prior visit) and recommended for outpatient follow up. At least 3 times [facility] has been involved and trying to provide linkage to services. Patient reported she took her medications (Zyprexa 2.5MG QAM, Zyprexa 5MG QHS, Buspar 5MG BID) from the 02/15/19 ED visit but has not taken any the last two weeks (that would mean she took the medication for maybe a week or so). She identified [facility] wanted her to do therapy at [facility] but she said she had therapy at [facility]. With further questioning she stated she missed her last [facility] appointment and does not have medication management there. Patient alert and oriented x5, engaged and able to carry on dialogue conversation and sought out help prior to taking action in SI or self harm. Diagnosis: SI 304.10 (F13.20) Anxiolytic Use Disorder, Severe, Dependence (Hx prolonged Klonopin Use with discontinue a couple months ago after abrupt stop) 300.00 (F41.9) Unspecified Anxiety Related Disorder (may be related to benzo withdrawal) 311 (F32.9) Unspecified Depressive Disorder (may be related to benzo withdrawal) Impression/Plan: Patient is cleared from acute psychiatric services. Patient showed fair insight and judgment by calling [facility] and not doing anything to harm or hurt self. She has been seen by [facility] 5 times now since December 2018 with [facility] involvement more times than not. She has shown she does not take medications more than a week and does not follow up outpatient. She was psychoeducated on the importance of medication management and therapy for ongoing care, treatment and support. She was encouraged to let [facility] link her to their services. Celi from [facility] contacted about plan of care and she said she would come to ED for transportation and safety planning with patient. Consulted with Dr. Mcdowell regarding the management and care of patient. ED Physician in agreement with recommendations.
== END 2019-03-09 15:33 | disposition home or self-care (01) ==
LOC: ER 10:14
DX: R45.851 Suicidal ideations (principal); F31.9 Bipolar disorder, unspecified; Z91.14 Patient's other noncompliance with medication regimen; I10 Essential (primary) hypertension; R00.0 Tachycardia, unspecified; Z88.8 Allergy status to other drugs, medicaments and biological substances
CPT/HCPCS: 36415; 80053; 80307; 81001; 84703; 85025; 93005; 93010; 99285

== ENCOUNTER 2019-03-24 08:31 | Emergency (ER) | payer SELFPAY ==
--- NOTE | 2019-03-24 08:41 | ER Document Report ---
ED Psych Disorder / Suicide - General Stated Complaint: POSSIBLE SI Time Seen by Provider: 03/24/19 08:35 Notes: 38-year-old female presents to the ER complaining of suicidal thoughts. Patient stated she is hearing voices that tell her to hurt her self. She is to go to a shed out back and slit her wrist. Mostly she tried this recently. The patient denies any homicidal ideation denies visual hallucinations. States she knows that the voices are real however she does feel compelled at times to hurt herself and she is having thoughts. Otherwise she has no other complaints of chest pain shortness of breath no abdominal pain. TRAVEL OUTSIDE OF THE [place] IN LAST 30 DAYS: No - Related Data Allergies/Adverse Reactions: promethazine [From Phenergan] Allergy (Verified 03/09/19 10:19) metoclopramide [From Reglan] Adverse Reaction (Verified 03/09/19 10:19) Past Medical History - Social History Smoking Status: Current Every Day Smoker Family History: Reviewed & Not Pertinent, DM, Hypertension, Malignancy - Past Medical History Cardiac Medical History: Reports: Hx Hypertension - Not on-any medications Neurological Medical History: Denies: Hx Migraine, Hx Seizures Renal/ Medical History: Reports: Hx Ovarian Cysts. Denies: Hx Peritoneal Dialysis GI Medical History: Reports: Hx Colonoscopy Musculoskeletal Medical History: Reports Hx Musculoskeletal Deformity, Reports Hx Musculoskeletal Trauma Psychiatric Medical History: Reports: Hx Anxiety, Hx Depression Past Surgical History: Reports: Hx Tubal Ligation - Immunizations Immunizations up to date: Yes Hx Diphtheria, Pertussis, Tetanus Vaccination: Yes Review of Systems - Review of Systems Constitutional: denies: Chills, Fever EENT: No symptoms reported Cardiovascular: No symptoms reported Respiratory: No symptoms reported Gastrointestinal: No symptoms reported Genitourinary: No symptoms reported Neurological/Psychological: Depression, Anxiety, Hallucinations, Suicidal ideation -: Yes All other systems reviewed and negative Physical Exam - Vital signs Vitals: Temp Pulse Resp BP Pulse Ox 98.5 F 108 H 18 148/94 H 98 03/24/19 08:36 03/24/19 08:36 03/24/19 08:36 03/24/19 08:36 03/24/19 08:36 - Notes Notes: GENERAL_APPEARANCE: well_nourished, alert, cooperative, no_acute_distress, no_obvious_discomfort. VITALS: reviewed, see vital signs table. HEAD: no_swelling\tenderness on the head. EYES: PERRL, EOMI, conjunctiva_clear. NOSE: no_nasal_discharge. MOUTH: (-)decreased moisture. THROAT: no_tonsilar_inflammation, no_airway_obstruction. no_lymphadenopathy NECK: supple, no_neck_tenderness, (-)thyromegaly. BACK: no_back_tenderness. CHEST_WALL: no_chest_tenderness. LUNGS: no_wheezing, no_rales, no_rhonchi, (-)accessory muscle use, good air exchange bilateral. HEART: normal_rate, normal_rhythm, normal_S1, normal_S2, (-)S3, (-)S4, no_murmur, no_rub. ABDOMEN: normal_BS, soft, no_abd_tenderness, (-)guarding, (-)rebound, no_organomegaly, no_abd_masses. EXTREMITIES: good pulses in all_extremities, no_swelling\tenderness in the extremities, no_edema. SKIN: warm, dry, good_color, no_rash. MENTAL_STATUS: speech_clear, oriented_X_3, normal_affect, responds_appropriately to questions. PSYCH: Patient stated she is having suicidal thoughts and command hallucination voices telling her to go slit her wrists and the shadow back. This has been a frequent event for her. Denies homicidal ideation denies visual hallucinations. Patient seems to have reasonable remote memory and judgment understating these voices are not real. Course - Re-evaluation Re-evalutation: 03/24/19 08:41 Patient is a frequent visitor for psychiatric complaints here. We will have the patient's evaluated by psychiatry. We will draw some generalized lab work. However the patient has frequent enough labs that I am pretty comfortable with her medical stability. 03/24/19 10:58 Did have a mild urinary tract infection. Very small amount of white cells we will give a single dose of Levaquin which will last for several days and she is more than adequately treat the infection. Otherwise patient is medically stable for any kind of inpatient versus outpatient psychiatric care she would need We are still waiting on psychiatry consultation and input - Vital Signs Vital signs: Temp Pulse Resp BP Pulse Ox 98.5 F 108 H 18 148/94 H 98 03/24/19 08:36 03/24/19 08:36 03/24/19 08:36 03/24/19 08:36 03/24/19 08:36 - Laboratory Result Diagrams: 03/24/19 09:23 03/24/19 09:23 Laboratory results interpreted by me: 03/24/19 03/24/19 03/24/19 08:48 09:23 09:23 RDW 14.4 H BUN 4 L Urine Blood MODERATE H Ur Leukocyte Esterase LARGE H Acetaminophen < 10 L Discharge - Discharge Clinical Impression: Suicidal ideation, History of command hallucinations Condition: Good Disposition: PSYCH HOSP/UNIT
[2019-03-24 09:32] LABS: ABSOLUTE LYMPHOCYTES (AUTO) 0.9 10^3/uL (0.5-4.7); ABSOLUTE MONOCYTES (AUTO) 0.5 10^3/uL (0.1-1.4); BASOPHILS % (AUTO) 0.5 % (0-2); EOSINOPHILS % (AUTO) 0.4 % (0-6); HEMATOCRIT 40.1 % (36.0-47.0); HEMOGLOBIN 13.4 g/dL (12.0-15.5); LYMPHOCYTES % (AUTO) 16.1 % (13-45); MEAN CORPUSCULAR HEMOGLOBIN 28.8 pg (27.0-33.4); MEAN CORPUSCULAR HGB CONC 33.3 g/dL (32.0-36.0); MEAN CORPUSCULAR VOLUME 87 fl (80-97); MONOCYTES % (AUTO) 8.4 % (3-13); PLATELET COUNT 314 10^3/uL (150-450); RED BLOOD COUNT 4.64 10^6/uL (3.72-5.28); RED CELL DISTRIBUTION WIDTH 14.4 % (11.5-14.0); SEGMENTED NEUTROPHILS % (AUTO) 74.6 % (42-78); TOTAL CELLS COUNTED % (AUTO) 100 %; WHITE BLOOD COUNT 5.4 10^3/uL (4.0-10.5)
[2019-03-24 09:33] LABS: APPEARANCE,URINE CLOUDY; BILIRUBIN,URINE NEGATIVE (NEGATIVE); COLOR,URINE YELLOW; GLUCOSE, URINE NEGATIVE (NEGATIVE); KETONES,URINE NEGATIVE (NEGATIVE); LEUKOCYTE ESTERASE,URINE LARGE (NEGATIVE); NITRITE,URINE NEGATIVE (NEGATIVE); PROTEIN,URINE NEGATIVE (NEGATIVE); URINE SPECIFIC GRAVITY 1.003; UROBILINOGEN,URINE NEGATIVE mg/dL (<2.0)
[2019-03-24 09:52] LABS: URINE AMPHETAMINES SCREEN NEGATIVE; URINE BARBITURATES SCREEN NEGATIVE; URINE BENZODIAZEPINES SCREEN NEGATIVE; URINE COCAINE SCREEN NEGATIVE; URINE MARIJUANA (THC) SCREEN NEGATIVE; URINE METHADONE SCREEN NEGATIVE; URINE PHENCYCLIDINE SCREEN NEGATIVE
[2019-03-24 09:54] LABS: ANION GAP 11 (5-19); BLOOD UREA NITROGEN 4 mg/dL (7-20); CALCIUM 9.9 mg/dL (8.4-10.2); CARBON DIOXIDE 30 mmol/L (22-30); CHLORIDE 98 mmol/L (98-107); GLUCOSE 92 mg/dL (75-110); POTASSIUM 3.8 mmol/L (3.6-5.0)
[2019-03-24 09:57] LABS: ACETAMINOPHEN < 10 ug/mL (10-30); ALCOHOL < 10 mg/dL (NONE DETECTED)
[2019-03-24] MEDS ORDERED: LEVOFLOXACIN 750 MG TABLET PO ONE (10:57)
--- NOTE | 2019-03-24 13:40 | EKG REPORT ---
SEVERITY:- ABNORMAL ECG - SINUS RHYTHM CONSIDER LEFT VENTRICULAR HYPERTROPHY : Confirmed by: Delroy Jefferson 24-Mar-2019 13:39:22
[2019-03-24 15:05] VITALS: BP 155/82
== END 2019-03-24 15:22 | disposition home or self-care (01) ==
LOC: ER 08:31
DX: R45.851 Suicidal ideations (principal); N39.0 Urinary tract infection, site not specified; F31.9 Bipolar disorder, unspecified; Z98.51 Tubal ligation status; F17.200 Nicotine dependence, unspecified, uncomplicated
CPT/HCPCS: 36415; 80048; 80307; 81001; 81025; 85025; 93005; 93010; 99285

== ENCOUNTER 2019-05-03 02:53 | Emergency (ER) | payer SELFPAY ==
[2019-05-03 03:08] VITALS: BP 170/99
--- NOTE | 2019-05-03 03:23 | ER Document Report ---
ED General - General Chief Complaint: Urinary Problem Stated Complaint: URINATING PAIN Time Seen by Provider: 05/03/19 03:18 Primary Care Provider: OPAL BRASWELL MD [ACTIVE STAFF] - Follow up in 3-5 days Notes: Patient is a 38-year-old female that presents to the emergency department for chief complaint of dysuria. Patient states she is been having symptoms of urinary tract infection for the past 3 or 4 weeks, she has been having dysuria, nausea decreased appetite, she states the pain is burning, she has some suprapubic pain and tenderness as well. She currently rates her pain as a 3 out of 10 describes it as aching and burning. Denies any fevers, chills, night sweats, chest pain, shortness of breath, vomiting, flank pain. No other complaints at this time. Past Medical History: Denies chronic medical conditions Past Surgical History: Tubal ligation Social History: Former smoker, denies alcohol or drug use. Family History: Reviewed and noncontributory for presenting illness Allergies: Reviewed, see documented allergy list. REVIEW OF SYSTEMS: Other than noted above, the 12 point review of systems was reviewed with the patient and were negative, all pertinent findings are included in the HPI. PHYSICAL EXAMINATION: Vital signs reviewed, nursing noted reviewed. GENERAL: Well-appearing, well-nourished and in no acute distress. HEAD: Atraumatic, normocephalic. EYES: Eyes appear normal, extraocular movements intact, sclera anicteric, conjunctiva are normal. ENT: nares patent, oropharynx clear without exudates. Moist mucous membranes. NECK: Normal range of motion, supple without lymphadenopathy LUNGS: Breath sounds clear to auscultation bilaterally and equal. No wheezes rales or rhonchi. HEART: Regular rate and rhythm without murmurs ABDOMEN: Soft, mild suprapubic tenderness with palpation, normoactive bowel sounds. No rebound, guarding, or rigidity. No masses appreciated. EXTREMITIES: Nontender, good range of motion, no pitting or edema. NEUROLOGICAL: No focal neurological deficits. Moves all extremities spontaneously Motor and sensory grossly intact on exam. PSYCH: Normal mood, normal affect. SKIN: Warm, Dry, normal turgor, no rashes or lesions noted on exposed skin TRAVEL OUTSIDE OF THE [place] IN LAST 30 DAYS: No - Related Data Allergies/Adverse Reactions: promethazine [From Phenergan] Allergy (Verified 03/24/19 13:39) metoclopramide [From Reglan] Adverse Reaction (Verified 03/24/19 13:39) Past Medical History - Social History Smoking Status: Former Smoker Family History: Reviewed & Not Pertinent, DM, Hypertension, Malignancy - Past Medical History Cardiac Medical History: Reports: Hx Hypertension - Not on-any medications Neurological Medical History: Denies: Hx Migraine, Hx Seizures Renal/ Medical History: Reports: Hx Ovarian Cysts. Denies: Hx Peritoneal Dialysis GI Medical History: Reports: Hx Colonoscopy Musculoskeletal Medical History: Reports Hx Musculoskeletal Deformity, Reports Hx Musculoskeletal Trauma Psychiatric Medical History: Reports: Hx Anxiety, Hx Depression Past Surgical History: Reports: Hx Tubal Ligation - Immunizations Immunizations up to date: Yes Hx Diphtheria, Pertussis, Tetanus Vaccination: Yes Physical Exam - Vital signs Vitals: Temp Pulse Resp BP Pulse Ox 98 F 84 16 170/99 H 99 05/03/19 02:54 05/03/19 02:54 05/03/19 02:54 05/03/19 02:54 05/03/19 02:54 Course - Re-evaluation Re-evalutation: Patient seen and examined vital signs reviewed. Patient was evaluated and treated as appropriate for the patient's presenting symptoms and complaint, with consideration of any critical or life threatening conditions that may be associated with their obtained history and exam as noted above. Patient was treated with Keflex, and Pyridium, UA and hCG ordered, hCG negative, UA demonstrated leukocyte esterase, patient was symptomatic, therefore will treat with Keflex twice daily for 5 days as well as Pyridium and have her follow-up with primary care The patient was re-evaluated and was stable Evaluation was most consistent with cystitis/UTI Plan of care was discussed with the patient at this point, after careful consideration I feel that that patient can be discharged from the emergency department, the patient was educated treatments and reasons to return to the emergency department based on their presumed diagnosis as noted above, they were advised to followup with a primary care physician in 2-3 days. Patient was ag reeable to plan of care. *Note is created using voice recognition software and may contain spelling, syntax or grammatical errors. Laboratory 05/03/19 02:55 Urine Color COLORLESS Urine Appearance CLEAR Urine pH 8.0 Ur Specific [place] 1.001 Urine Protein NEGATIVE Urine Glucose (UA) NEGATIVE Urine Ketones NEGATIVE Urine Blood MODERATE H Urine Nitrite NEGATIVE Urine Bilirubin NEGATIVE Urine Urobilinogen NEGATIVE Ur Leukocyte Esterase TRACE H Urine WBC (Auto) 1 Urine RBC (Auto) 0 Squamous Epi Cells Auto 1 Urine Mucus (Auto) RARE Urine Ascorbic Acid NEGATIVE Urine HCG, Qual NEGATIVE - Vital Signs Vital signs: Temp Pulse Resp BP Pulse Ox 98 F 84 16 170/99 H 99 05/03/19 02:54 05/03/19 02:54 05/03/19 02:54 05/03/19 02:54 05/03/19 02:54 - Laboratory Laboratory results interpreted by me: 05/03/19 02:55 Urine Blood MODERATE H Ur Leukocyte Esterase TRACE H Discharge - Discharge Clinical Impression: UTI (urinary tract infection) Qualifiers: Urinary tract infection type: site unspecified Hematuria presence: with hematuria Qualified Code(s): N39.0 - Urinary tract infection, site not specified; R31.9 - Hematuria, unspecified Condition: Stable Disposition: HOME, SELF-CARE Instructions: Urinary Tract Infection ([facility]) Prescriptions: Cephalexin Monohydrate [Keflex 500 mg Capsule] 500 mg PO BID 5 Days #10 capsule Phenazopyridine HCl [Pyridium 200 mg Tablet] 200 mg PO TID #15 tablet Referrals: OPAL BRASWELL MD [ACTIVE STAFF] - Follow up in 3-5 days
[2019-05-03] MEDS ORDERED: PHENAZOPYRIDINE HCL 200 MG TABLET PO ONE (03:35)
[2019-05-03] MEDS ORDERED: CEPHALEXIN 500 MG CAPSULE PO ONE (03:35)
[2019-05-03] MEDS ORDERED: IBUPROFEN 600 MG TABLET PO ONE (03:35)
[2019-05-03 03:54] LABS: APPEARANCE,URINE CLEAR; BILIRUBIN,URINE NEGATIVE (NEGATIVE); COLOR,URINE COLORLESS; GLUCOSE, URINE NEGATIVE (NEGATIVE); KETONES,URINE NEGATIVE (NEGATIVE); LEUKOCYTE ESTERASE,URINE TRACE (NEGATIVE); NITRITE,URINE NEGATIVE (NEGATIVE); PROTEIN,URINE NEGATIVE (NEGATIVE); URINE SPECIFIC GRAVITY 1.001; UROBILINOGEN,URINE NEGATIVE mg/dL (<2.0)
== END 2019-05-03 03:59 | disposition home or self-care (01) ==
LOC: ER 02:53
DX: N39.0 Urinary tract infection, site not specified (principal); R31.9 Hematuria, unspecified; R30.0 Dysuria; R11.0 Nausea; R63.0 Anorexia; R10.30 Lower abdominal pain, unspecified; I10 Essential (primary) hypertension; Z87.891 Personal history of nicotine dependence; Z98.51 Tubal ligation status; Z87.42 Personal history of other diseases of the female genital tract; Z88.8 Allergy status to other drugs, medicaments and biological substances
CPT/HCPCS: 99283; 81025; 81001; J3490

== ENCOUNTER 2019-09-03 12:55 | Emergency (ER) | payer SELFPAY ==
--- NOTE | 2019-09-03 13:26 | ER Document Report ---
ED Medical Screen (RME) - General Chief Complaint: Toothache Stated Complaint: TOOTH PAIN, VAGINAL BLEEDING Time Seen by Provider: 09/03/19 13:18 Notes: 38-year-old female presents the emergency department with abnormal vaginal bleeding and a tooth ache. Patient states that she started having abnormal bleeding outside of her normal cycle and attributed it to her wisdom teeth coming in. Patient has had vaginal bleeding for the past 2 to 3 weeks with some associated dizziness/lightheadedness. No lower abdominal cramping or abnormal foul-smelling vaginal discharge. No urinary symptoms. No fevers or chills. No nausea/vomiting/diarrhea. Exam: Well-appearing in no acute distress, lungs clear to auscultation, tachycardia with regular rhythm, abdominal exam deferred in triage I have greeted and performed a rapid initial assessment of this patient. A comprehensive ED assessment and evaluation of the patient, analysis of test results and completion of medical decision making process will be conducted by an additional ED providers. TRAVEL OUTSIDE OF THE [place] IN LAST 30 DAYS: No - Related Data Allergies/Adverse Reactions: promethazine [From Phenergan] Allergy (Verified 09/03/19 13:10) metoclopramide [From Reglan] Adverse Reaction (Verified 09/03/19 13:10) Past Medical History - Social History Chew tobacco use (# tins/day): No Frequency of alcohol use: None Drug Abuse: None - Past Medical History Cardiac Medical History: Reports: Hx Hypertension - Not on-any medications Neurological Medical History: Denies: Hx Migraine, Hx Seizures Renal/ Medical History: Reports: Hx Ovarian Cysts. Denies: Hx Peritoneal Dialysis GI Medical History: Reports: Hx Colonoscopy Musculoskeltal Medical History: Reports Hx Musculoskeletal Deformity, Reports Hx Musculoskeletal Trauma Psychiatric Medical History: Reports: Hx Anxiety, Hx Depression Past Surgical History: Reports: Hx Tubal Ligation - Immunizations Immunizations up to date: Yes Hx Diphtheria, Pertussis, Tetanus Vaccination: Yes Physical Exam - Vital signs Vitals: Temp Pulse Resp BP Pulse Ox 98.1 F 111 H 18 150/89 H 99 09/03/19 13:00 09/03/19 13:00 09/03/19 13:00 09/03/19 13:00 09/03/19 13:00 Course - Vital Signs Vital signs: Temp Pulse Resp BP Pulse Ox 98.1 F 111 H 18 150/89 H 99 01/02/20 13:00 09/03/19 13:00 09/03/19 13:00 09/03/19 13:00 09/03/19 13:00
[2019-09-03 14:16] LABS: ABSOLUTE EOSINOPHILS # (AUTO) 0.1 10^3/uL (0.0-0.6); ABSOLUTE LYMPHOCYTES (AUTO) 1.2 10^3/uL (0.5-4.7); ABSOLUTE MONOCYTES (AUTO) 0.5 10^3/uL (0.1-1.4); ABSOLUTE NEUT (AUTO) 3.8 10^3/uL (1.7-8.2); BASOPHILS % (AUTO) 0.5 % (0-2); EOSINOPHILS % (AUTO) 1.1 % (0-6); HEMATOCRIT 40.2 % (36.0-47.0); HEMOGLOBIN 13.6 g/dL (12.0-15.5); LYMPHOCYTES % (AUTO) 21.6 % (13-45); MEAN CORPUSCULAR HEMOGLOBIN 28.5 pg (27.0-33.4); MEAN CORPUSCULAR HGB CONC 33.8 g/dL (32.0-36.0); MEAN CORPUSCULAR VOLUME 84 fl (80-97); MONOCYTES % (AUTO) 8.2 % (3-13); PLATELET COUNT 349 10^3/uL (150-450); RED BLOOD COUNT 4.77 10^6/uL (3.72-5.28); RED CELL DISTRIBUTION WIDTH 15.8 % (11.5-14.0); SEGMENTED NEUTROPHILS % (AUTO) 68.6 % (42-78); TOTAL CELLS COUNTED % (AUTO) 100 %; WHITE BLOOD COUNT 5.5 10^3/uL (4.0-10.5)
[2019-09-03 14:24] LABS: APPEARANCE,URINE SLIGHTLY-CLOUDY; BILIRUBIN,URINE NEGATIVE (NEGATIVE); COLOR,URINE YELLOW; GLUCOSE, URINE NEGATIVE (NEGATIVE); KETONES,URINE NEGATIVE (NEGATIVE); LEUKOCYTE ESTERASE,URINE SMALL (NEGATIVE); NITRITE,URINE NEGATIVE (NEGATIVE); PROTEIN,URINE 30 mg/dL (NEGATIVE); URINE SPECIFIC GRAVITY 1.021; UROBILINOGEN,URINE NEGATIVE mg/dL (<2.0)
--- NOTE | 2019-09-03 14:26 | RADIOLOGY REPORT (SQ) ---
EXAM DESCRIPTION: U/S NON OB PEL TV W/DOPPLER COMPLETED DATE/TIME: 09/03/2019 2:14 pm REASON FOR STUDY: Abnormal vaginal bleeding COMPARISON: None. TECHNIQUE: Dynamic and static grayscale images acquired of the pelvis via transvaginal approach and recorded on PACS. Additional selected color Doppler and spectral images recorded. LIMITATIONS: None. FINDINGS: UTERUS: Contour normal. 5 mm cyst- cystic fibroid in the posterior miduterine body. ENDOMETRIAL STRIPE: No focal or generalized thickening. No masses. CERVIX: No nabothian cysts. RIGHT OVARY AND DOPPLER: Normal size. No worrisome masses. Normal arterial vascular flow without evid ence for torsion. LEFT OVARY AND DOPPLER: Normal size. Probable 13 mm left ovarian luteal cyst. Normal arterial vascul ar flow without evidence for torsion. FREE FLUID: Small amount of endometrial free fluid. OTHER: No other significant finding. MEASUREMENTS: UTERUS: 7.8 x 5.1 x 4.2 cm ENDOMETRIAL STRIPE: 3 mm RIGHT OVARY: 3 x 2.2 x 1.7 cm LEFT OVARY: 2.3 x 2.3 x 2.0 cm IMPRESSION: Small amount of endometrial free fluid.5 mm cyst- cystic fibroid in the posterior midute rine body.Probable 13 mm left ovarian luteal cyst. TECHNICAL DOCUMENTATION: JOB ID: [id number] [place]-72 2010 [employer]- All Rights Reserved Rev Reading location - IP/workstation name: [email or web address]
--- NOTE | 2019-09-03 14:29 | ER Document Report ---
ED General - General Chief Complaint: Toothache Stated Complaint: TOOTH PAIN, VAGINAL BLEEDING Time Seen by Provider: 09/03/19 13:18 Primary Care Provider: OPAL BRASWELL MD [Primary Care Provider] - Follow up in 1 week Mode of Arrival: Ambulatory Information source: Patient Notes: 38-year-old female with history of high blood pressure presents emergency depart ment with complaints of lower left dental pain for the past 4 weeks. She also complains of vaginal bleeding for the past 3 to 4 weeks. She reports she is changing 2 pads an hour every hour for the past 3 to 4 weeks. She denies fever vomiting diarrhea. Denies pain with void. She reports her back tooth has been hurting she is thinking maybe her wisdom teeth are coming in. She reports it hurts more when she chews. She has not followed up with a provider or dentist. TRAVEL OUTSIDE OF THE [place] IN LAST 30 DAYS: No - HPI Onset: Other Onset/Duration: Persistent Quality of pain: Achy Associated symptoms: None Exacerbated by: Food Relieved by: Denies Similar symptoms previously: No Recently seen / treated by doctor: No - Related Data Allergies/Adverse Reactions: promethazine [From Phenergan] Allergy (Verified 09/03/19 13:10) metoclopramide [From Reglan] Adverse Reaction (Verified 09/03/19 13:10) Past Medical History - General Information source: Patient Last Menstrual Period: Approximately 4 weeks ago - Social History Smoking Status: Never Smoker Chew tobacco use (# tins/day): No Frequency of alcohol use: None Drug Abuse: None Family History: Reviewed & Not Pertinent, DM, Hypertension, Malignancy Patient has suicidal ideation: No Patient has homicidal ideation: No - Past Medical History Cardiac Medical History: Reports: Hx Hypertension - Not on-any medications Neurological Medical History: Denies: Hx Migraine, Hx Seizures Renal/ Medical History: Reports: Hx Ovarian Cysts. Denies: Hx Peritoneal Dialysis GI Medical History: Reports: Hx Colonoscopy Musculoskeletal Medical History: Reports Hx Musculoskeletal Deformity, Reports Hx Musculoskeletal Trauma Psychiatric Medical History: Reports: Hx Anxiety, Hx Depression Past Surgical History: Reports: Hx Tubal Ligation - Immunizations Immunizations up to date: Yes Hx Diphtheria, Pertussis, Tetanus Vaccination: Yes Review of Systems - Review of Systems Notes: Review HPI for review of systems., All other systems negative Physical Exam - Vital signs Vitals: Temp Pulse Resp BP Pulse Ox 98.1 F 111 H 18 150/89 H 99 09/03/19 13:00 09/03/19 13:00 09/03/19 13:00 09/03/19 13:00 09/03/19 13:00 - General General appearance: Appears well, Alert In distress: None - HEENT Head: Normocephalic Eyes: Normal Conjunctiva: No: Icteric, Injected Extraocular movements intact: Yes Mouth/Lips: Normal Mucous membranes: Moist Teeth diagram: 1 - Patient complains of pain. No erythema no swelling no pustule no dental c avity noted opens mouth wide clear voice Pharynx: Normal - Respiratory Respiratory status: No respiratory distress Chest status: Nontender Breath sounds: Normal Chest palpation: Normal - Cardiovascular Rhythm: Regular Heart sounds: Normal auscultation Murmur: No - Abdominal Inspection: Normal Distension: No distension Tenderness: Nontender - Back Back: Nontender. No: CVA tenderness, Vertebra tenderness - Extremities General upper extremity: Normal ROM General lower extremity: Normal ROM - Neurological Neuro grossly intact: Yes Cognition: Normal Orientation: AAOx4 [place] Coma Scale Eye Opening: Spontaneous Sudhir Coma Scale Verbal: Oriented Sudhir Coma Scale Motor: Obeys Commands Sudhir Coma Scale Total: 15 Speech: Normal - Psychological Associated symptoms: Normal affect, Normal mood - Skin Skin Temperature: Warm Skin Moisture: Dry Skin Color: Normal Course - Re-evaluation Re-evalutation: 09/03/19 14:28 Patient presents emergency department with complaints of back lower dental pain to the left side for the past 4 weeks and vaginal bleeding for the past 3 to 4 weeks. Patient looks good nontoxic looking no obvious abscess noted to the dental area. 09/03/19 13:35 09/03/19 13:35 MCV 84 fl (80-97) 09/03/19 13:35 MCH 28.5 pg (27.0-33.4) 09/03/19 13:35 MCHC 33.8 g/dL (32.0-36.0) 09/03/19 13:35 RDW 15.8 % (11.5-14.0) H 09/03/19 13:35 Seg Neutrophils % 68.6 % (42-78) 09/03/19 13:35 Chloride 99 mmol/L (98-107) 09/03/19 13:35 Carbon Dioxide 33 mmol/L (22-30) H 09/03/19 13:35 Anion Gap 10 (5-19) 09/03/19 13:35 Est GFR ( Amer) > 60 (>60) 09/03/19 13:35 Glucose 100 mg/dL (75-110) 09/03/19 13:35 Calcium 10.0 mg/dL (8.4-10.2) 09/03/19 13:35 Total Bilirubin 1.1 mg/dL (0.2-1.3) 09/03/19 13:35 AST 28 U/L (14-36) 09/03/19 13:35 Alkaline Phosphatase 80 U/L (38-126) 09/03/19 13:35 Total Protein 8.1 g/dL (6.3-8.2) 09/03/19 13:35 Albumin 4.6 g/dL (3.5-5.0) 09/03/19 13:35 Urine Color YELLOW 09/03/19 13:35 Urine Appearance SLIGHTLY-CLOUDY 09/03/19 13:35 Urine pH 6.0 (5.0-9.0) 09/03/19 13:35 Ur Specific [place] 1.021 09/03/19 13:35 Urine Protein 30 mg/dL (NEGATIVE) H 09/03/19 13:35 Urine Glucose (UA) NEGATIVE mg/dL (NEGATIVE) 09/03/19 13:35 Urine Ketones NEGATIVE mg/dL (NEGATIVE) 09/03/19 13:35 Urine Blood LARGE (NEGATIVE) H 09/03/19 13:35 Urine Nitrite NEGATIVE (NEGATIVE) 09/03/19 13:35 Ur Leukocyte Esterase SMALL (NEGATIVE) H 09/03/19 13:35 Urine WBC (Auto) 20 /HPF 09/03/19 13:35 Urine RBC (Auto) 38 /HPF 09/03/19 13:35 Transvaginal US 09/03/19 13:24 IMPRESSION: Small amount of endometrial free fluid.5 mm cyst- cystic fibroid in the posterior miduterine body.Probable 13 mm left ovarian luteal cyst. 09/03/19 15:43 Labs unremarkable. No need for blood transfusion. 13 mm ovarian cyst noted. Patient was instructed on this. She was also instructed on penicillin for possible dental infection. She was instructed on the importance of follow-up with [facility] and the dentist. She verbalized understanding to all instructions. Patient looks great nontoxic looking no distress. - Vital Signs Vital signs: Temp Pulse Resp BP Pulse Ox 98.0 F 90 16 142/75 H 100 09/03/19 15:10 09/03/19 15:10 09/03/19 15:10 09/03/19 15:10 09/03/19 15:10 - Laboratory Result Diagrams: 09/03/19 13:35 09/03/19 13:35 Laboratory results interpreted by me: 09/03/19 09/03/19 09/03/19 13:35 13:35 13:35 RDW 15.8 H Potassium 3.4 L Carbon Dioxide 33 H Urine Protein 30 H Urine Blood LARGE H Ur Leukocyte Esterase SMALL H - Diagnostic Test Radiology reviewed: Reports reviewed Discharge - Discharge Clinical Impression: Vaginal bleeding, Pain, dental Condition: Stable Disposition: HOME, SELF-CARE Instructions: Dentist, [facility], Penicillin V K ([facility]), Toothache ([facility]), Vaginal Bleeding ([facility]) Additional Instructions: *You have been evaluated for vaginal bleeding and dental pain *Take medication as prescribed *Take ibuprofen as indicated for pain *Follow up with a dentist for your dental pain and follow-up with [facility] for your vaginal bleeding within the next week *Return to ED for worsening condition, changes, needs Prescriptions: Penicillin V Potassium [Penicillin Vk 500 mg Tablet] 500 mg PO BID #20 tablet Referrals: OPAL BRASWELL MD [Primary Care Provider] - Follow up in 1 week
[2019-09-03 14:36] LABS: ALBUMIN 4.6 g/dL (3.5-5.0); ALKALINE PHOSPHATASE 80 U/L (38-126); ASPARTATE AMINO TRANSFERASE 28 U/L (14-36); BILIRUBIN,DIRECT 0.1 mg/dL (0.0-0.4); BILIRUBIN,TOTAL 1.1 mg/dL (0.2-1.3); BLOOD UREA NITROGEN 9 mg/dL (7-20); CARBON DIOXIDE 33 mmol/L (22-30); CHLORIDE 99 mmol/L (98-107); GLUCOSE 100 mg/dL (75-110); POTASSIUM 3.4 mmol/L (3.6-5.0); TOTAL PROTEIN 8.1 g/dL (6.3-8.2)
[2019-09-03 14:38] LABS: ANION GAP 10 (5-19)
[2019-09-03 15:12] VITALS: BP 142/75
== END 2019-09-03 15:10 | disposition home or self-care (01) ==
LOC: ER 12:55
DX: K08.89 Other specified disorders of teeth and supporting structures (principal); D25.9 Leiomyoma of uterus, unspecified; N83.209 Unspecified ovarian cyst, unspecified side; R18.8 Other ascites; N93.9 Abnormal uterine and vaginal bleeding, unspecified; I10 Essential (primary) hypertension; Z88.8 Allergy status to other drugs, medicaments and biological substances
CPT/HCPCS: 36415; 76830; 80053; 81001; 81025; 85025; 93976; 99284

== ENCOUNTER 2019-09-25 13:03 | Emergency (ER) | payer SELFPAY ==
--- NOTE | 2019-09-25 13:26 | ER Document Report ---
ED Medical Screen (RME) - General Chief Complaint: Vaginal Discharge Stated Complaint: VAGINAL DISCHARGE/VAGINAL BLEEDING Time Seen by Provider: 09/25/19 13:23 Primary Care Provider: OPAL BRASWELL MD [Primary Care Provider] - Follow up as needed Information source: Patient Notes: Patient presents complaining of low back pain and vaginal bleeding. Patient also reports dysuria and urinary frequency. Patient states that this is not her typical menstrual cycle. Patient is concerned about likely STD. Patient does complain of some dizziness as well. I have greeted and performed a rapid initial assessment of this patient. A comprehensive ED assessment and evaluation of the patient, analysis of test results and completion of the medical decision making process will be conducted by additional ED providers. TRAVEL OUTSIDE OF THE [place] IN LAST 30 DAYS: No - Related Data Allergies/Adverse Reactions: promethazine [From Phenergan] Allergy (Verified 09/03/19 13:10) metoclopramide [From Reglan] Adverse Reaction (Verified 09/03/19 13:10) Past Medical History - Past Medical History Cardiac Medical History: Reports: Hx Hypertension - Not on-any medications Neurological Medical History: Denies: Hx Migraine, Hx Seizures Renal/ Medical History: Reports: Hx Ovarian Cysts. Denies: Hx Peritoneal Dialysis GI Medical History: Reports: Hx Colonoscopy Musculoskeltal Medical History: Reports Hx Musculoskeletal Deformity, Reports Hx Musculoskeletal Trauma Psychiatric Medical History: Reports: Hx Anxiety, Hx Depression Past Surgical History: Reports: Hx Tubal Ligation - Immunizations Immunizations up to date: Yes Hx Diphtheria, Pertussis, Tetanus Vaccination: Yes Physical Exam - Vital signs Vitals: Temp Pulse Resp BP Pulse Ox 98.3 F 104 H 16 168/98 H 98 09/25/19 13:13 09/25/19 13:13 09/25/19 13:13 09/25/19 13:13 09/25/19 13:13 - General General appearance: Appears well, Alert Notes: Low back tenderness Course - Vital Signs Vital signs: Temp Pulse Resp BP Pulse Ox 98.3 F 104 H 16 168/98 H 98 09/25/19 13:13 09/25/19 13:13 09/25/19 13:13 09/25/19 13:13 09/25/19 13:13 Doctor's Discharge - Discharge Referrals: OPAL BRASWELL MD [Primary Care Provider] - Follow up as needed
[2019-09-25 14:11] LABS: APPEARANCE,URINE SLIGHTLY-CLOUDY; BILIRUBIN,URINE NEGATIVE (NEGATIVE); COLOR,URINE YELLOW; GLUCOSE, URINE NEGATIVE (NEGATIVE); KETONES,URINE TRACE mg/dL (NEGATIVE); LEUKOCYTE ESTERASE,URINE SMALL (NEGATIVE); NITRITE,URINE NEGATIVE (NEGATIVE); PROTEIN,URINE 30 mg/dL (NEGATIVE); URINE SPECIFIC GRAVITY 1.025
--- NOTE | 2019-09-25 18:15 | ER Document Report ---
ED General - General Chief Complaint: Vaginal Discharge Stated Complaint: VAGINAL DISCHARGE/VAGINAL BLEEDING Time Seen by Provider: 09/25/19 13:23 Primary Care Provider: OPAL BRASWELL MD [Primary Care Provider] - Follow up in 3-5 days Mode of Arrival: Ambulatory Information source: Patient Notes: 39-year-old female presents emergency department with complaints of vaginal discharge burning for the past month. Reports she had sex without protection approximately 1 month ago. She reports that was the first time in 1 year. She denies other symptoms such as fever vomiting diarrhea. Reports it feels like her arms and legs are burning. Patient eating drinking voiding as normal. TRAVEL OUTSIDE OF THE [place] IN LAST 30 DAYS: No - HPI Onset: Other Onset/Duration: Persistent Associated symptoms: None Exacerbated by: Denies Relieved by: Denies Similar symptoms previously: No Recently seen / treated by doctor: No - Related Data Allergies/Adverse Reactions: promethazine [From Phenergan] Allergy (Verified 09/03/19 13:10) metoclopramide [From Reglan] Adverse Reaction (Verified 09/03/19 13:10) Past Medical History - General Information source: Patient Last Menstrual Period: today - Social History Smoking Status: Unknown if Ever Smoked Frequency of alcohol use: None Drug Abuse: None Lives with: Family Family History: Reviewed & Not Pertinent, DM, Hypertension, Malignancy Patient has suicidal ideation: No Patient has homicidal ideation: No - Past Medical History Cardiac Medical History: Reports: Hx Hypertension - Not on-any medications Neurological Medical History: Denies: Hx Migraine, Hx Seizures Renal/ Medical History: Reports: Hx Ovarian Cysts. Denies: Hx Peritoneal Dialysis GI Medical History: Reports: Hx Colonoscopy Musculoskeletal Medical History: Reports Hx Musculoskeletal Deformity, Reports Hx Musculoskeletal Trauma Psychiatric Medical History: Reports: Hx Anxiety, Hx Depression Past Surgical History: Reports: Hx Tubal Ligation - Immunizations Immunizations up to date: Yes Hx Diphtheria, Pertussis, Tetanus Vaccination: Yes Physical Exam - Vital signs Vitals: Temp Pulse Resp BP Pulse Ox 98.3 F 104 H 16 168/98 H 98 09/25/19 13:13 09/25/19 13:13 09/25/19 13:13 09/25/19 13:13 09/25/19 13:13 - Notes Notes: PHYSICAL EXAMINATION: GENERAL: Well-appearing and in no acute distress HEAD: Atraumatic, normocephalic. ENT: nares patent, Moist mucous membranes. NECK: Normal range of motion, supple without lymphadenopathy LUNGS: CTAB and equal. No wheezes rales or rhonchi. HEART: Regular rate and rhythm without murmurs ABDOMEN: Soft, no tenderness. No guarding, no rebound EXTREMITIES: Normal range of motion, no pitting edema. No cyanosis. NEUROLOGICAL: Cranial nerves grossly intact. PSYCH: Normal mood, normal affect. SKIN: Warm, Dry, normal turgor, no rashes or lesions noted - Genitourinary External exam: Normal Speculum exam: Normal. No: Vaginal discharge, Products of conception, Vaginal lacerations Vaginal bleeding: Mild Bimanuel exam: Normal. No: Cervical motion tender, Adnexal mass, Adnexal tenderness Course - Re-evaluation Re-evalutation: 09/25/19 18:30 Laboratory 09/25/19 13:30 Urine Color YELLOW Urine Appearance SLIGHTLY-CLOUDY Urine pH 6.0 Ur Specific Media 1.025 Urine Protein 30 H Urine Glucose (UA) NEGATIVE Urine Ketones TRACE H Urine Blood LARGE H Urine Nitrite NEGATIVE Urine Bilirubin NEGATIVE Urine Urobilinogen 2.0 H Ur Leukocyte Esterase SMALL H Urine WBC (Auto) 32 Urine RBC (Auto) 182 Squamous Epi Cells Auto 12 Urine Mucus (Auto) FEW Urine Ascorbic Acid NEGATIVE Urine HCG, Qual NEGATIVE 09/25/19 19:01 Patient presents emergency department with complaints of vaginal discharge burning for the past month. Reports that she had sex for the first time in over a year without protection approximately 1 month ago. She is worried that she has STD. Reports she has had STD in the past. Patient was instructed on STD cultures timeframe for results. She was offered to stay and wait for results or be treated now and call later for results or be discharged and call for results and come back for treatment. Patient requested to be treated now for any possible STD and she will call the culture nurse later for results. Urinalysis shows small leukocytes with trace of ketones. Patient was instructed on the importance of push fluids. Patient was instructed on positive trichomonas. She reports "I thought that is what I had". Reports she has had trichomonas in the past. She was instructed on Macrobid and Flagyl. Patient was also instructed on the importance of follow-up with health department or [facility] for recheck within the week. She was instructed to avoid sex and always use protection when having sex. She verbalized understanding to all instructions. - Vital Signs Vital signs: Temp Pulse Resp BP Pulse Ox 97.8 F 99 18 155/92 H 100 09/25/19 19:50 09/25/19 19:50 09/25/19 19:50 09/25/19 19:50 09/25/19 19:50 - Laboratory Laboratory results interpreted by me: 09/25/19 13:30 Urine Protein 30 H Urine Ketones TRACE H Urine Blood LARGE H Urine Urobilinogen 2.0 H Ur Leukocyte Esterase SMALL H Discharge - Discharge Clinical Impression: Vaginal discharge, Possible exposure to STD, Trichomonas infection UTI (urinary tract infection) Qualifiers: Urinary tract infection type: site unspecified Hematuria presence: with hematuria Qualified Code(s): N39.0 - Urinary tract infection, site not specified Condition: Stable Disposition: HOME, SELF-CARE Instructions: Azithromycin ([facility]), Chlamydia ([facility]), Gonorrhea ([facility]), Metronidazole ([facility]), Nitrofurantoin ([facility]), [facility] [place], Rocephin ([facility]), Trichomonas Infection ([facility]), Urinary Tract Infection ([facility]) Additional Instructions: *You have been evaluated for vaginal discharge,possible STD exposure, UTI *Per your request you have been treated for gonorrhea and chlamydia with Rocephin and azithromycin without obtaining the final STD results. You may contact the culture nurse at [phone] Saturday through Saturday 08 100-16 100 for your results. *Take medication as prescribed for your UTI *Push fluids *Follow up with your [facility] or the health department for recheck *Avoid sexual intercourse until follow up *Always use protection during sex *Return to ED for worsening condition, changes, needs Monitor your blood pressure. Your blood pressure was elevated today. This may be because you were anxious, in pain or because you need medication. It is important to follow up with your primary care provider for full evaluation. Prescriptions: Metronidazole [Flagyl 500 mg Tablet] 500 mg PO BID #14 tablet Nitrofurantoin/Nitrofuran Mac [Macrobid 100 mg Capsule] 100 mg PO BID #20 capsule Forms: Elevated Blood Pressure Referrals: OPAL BRASWELL MD [Primary Care Provider] - Follow up in 3-5 days
[2019-09-25] MEDS ORDERED: CEFTRIAXONE INJ 250 MG VIAL IM ONE (18:30)
[2019-09-25] MEDS ORDERED: LIDOCAINE 1% INJ-PF (10 MG/ML) 30 ML SDV INJ ONE (18:30)
[2019-09-25] MEDS ORDERED: AZITHROMYCIN 250 MG TABLET PO ONE (18:30)
[2019-09-25 19:02] LABS: RBCS (WET MOUNT) 4+ RBCS SEEN; T.VAGINALIS (WET MOUNT) TRICHOMONAS SEEN; WBCS (WET MOUNT) 2+ WBCS SEEN; YEAST (WET MOUNT) NO YEAST SEEN
[2019-09-25] MEDS ORDERED: METRONIDAZOLE 500 MG TABLET PO ONE (19:25)
[2019-09-25] MEDS ORDERED: NITROFURANTOIN MONOHYD/M-CRYST 100 MG CAPSULE PO ONE (19:25)
[2019-09-25 19:49] VITALS: BP 155/92
[2019-09-25 20:32] LABS: CHLAM PCR NOT DETECTED (NOT DETECT)
== END 2019-09-25 19:49 | disposition home or self-care (01) ==
LOC: ER 13:03
DX: A59.00 Urogenital trichomoniasis, unspecified (principal); N39.0 Urinary tract infection, site not specified; N93.9 Abnormal uterine and vaginal bleeding, unspecified; Z20.2 Contact with and (suspected) exposure to infections with a predominantly sexual mode of transmission; I10 Essential (primary) hypertension
CPT/HCPCS: 99284; 96372; 87210; 81025; 81001; 87491; 87591; J3490; J0696; J8499